=== PATIENT | male | born 1945 | race Caucasian/White ===

== ENCOUNTER → 2017-04-26 10:37 | Outpatient (CLI) | payer MEDICARE, SELFPAY ==
[2017-04-26 12:44] LABS: AST(SGOT) 17 U/L (15-37); Alanine Aminotransfer ALT/SGPT 27 U/L (16-61); Albumin, Serum 3.4 g/dL (3.2-5.0); Alkaline Phosphatase 91 U/L (45-117); Bilirubin, Direct 0.09 mg/dL (0.00-0.30); Cholesterol 148 mg/dL (200); Globulin 3.8 g/dL (2.2-4.2); High Density Lipoprotein 42 mg/dL; Protein, Total 7.2 g/dL (6.4-8.2); Triglycerides 121 mg/dL; Very Low Density Lipoprotein 24 mg/dL (5-40)
== END ==
PROVIDERS: Physician Assistant Medical; Visit Provider Internal Medicine Cardiovascular Disease
DX: E78.5 Hyperlipidemia, unspecified (principal); Z79.899 Other long term (current) drug therapy
CPT/HCPCS: 36415; 80061; 80076

== ENCOUNTER → 2018-05-08 11:19 | Outpatient (CLI) | payer MEDICARE, SELFPAY ==
[2017-04-27 10:58] VITALS: BMI 28.5
[2018-05-08 13:17] LABS: AST(SGOT) 14 U/L (15-37); Alanine Aminotransfer ALT/SGPT 22 U/L (16-61); Albumin, Serum 3.6 g/dL (3.2-5.0); Alkaline Phosphatase 109 U/L (45-117); Bilirubin, Direct 0.14 mg/dL (0.00-0.30); Cholesterol 139 mg/dL (200); Globulin 4.1 g/dL (2.2-4.2); High Density Lipoprotein 45 mg/dL; Protein, Total 7.7 g/dL (6.4-8.2); Triglycerides 88 mg/dL; Very Low Density Lipoprotein 18 mg/dL (5-40)
== END ==
PROVIDERS: Referring Provider Internal Medicine Cardiovascular Disease; Visit Provider Internal Medicine Cardiovascular Disease
DX: E78.5 Hyperlipidemia, unspecified (principal); I25.2 Old myocardial infarction; Z95.5 Presence of coronary angioplasty implant and graft; Z79.899 Other long term (current) drug therapy; I25.10 Atherosclerotic heart disease of native coronary artery without angina pectoris; I10 Essential (primary) hypertension
CPT/HCPCS: 36415; 80061; 80076

== ENCOUNTER 2018-10-23 20:30 | Observation (INO) | payer MEDICARE, SELFPAY ==
[2018-06-25 15:21] VITALS: BMI 28.3
[2018-10-23 20:30] VITALS: BP 165/82; PULSE 81; RESP 18; TEMP 36.4; O2SAT 95; BMI 27.8
--- NOTE | 2018-10-23 20:32 | EKG12_ITS ---
Test Reason : CP Blood Pressure : / mmHG Vent. Rate : 081 BPM Atrial Rate : 081 BPM P-R Int : 160 ms QRS Dur : 106 ms QT Int : 382 ms P-R-T Axes : 044 -21 069 degrees QTc Int : 443 ms Normal sinus rhythm Normal ECG Confirmed by MARIE GALLO ([id number]), purchasing expeditor ALIZE STILES ([id number]) on 10/24/2018 2:17:01 PM Referred By: Iesha Moreau Confirmed By:MARIE GALLO
[2018-10-23 20:54] LABS: Absolute Neutrophil Count 5.3 X10^3/uL (2.0-7.7); Basophil# 0.05 X10^3/uL; Basophil% 0.6 % (0-1); Eosinophil# 0.21 X10^3/uL; Eosinophils% 2.4 % (0-5); Hemoglobin 15.4 g/dL (13.0-16.5); Lymphocyte % 28.8 % (19-41); Mean Corp Hgb Conc 34.2 g/dL (32-36); Mean Corpuscular Hgb 30.6 pg (27.0-32.0); Mean Corpuscular Volume 89.3 fL (80-94); Mean Platelet Vol. 10.6 fl (6.2-12.0); Monocyte# 0.55 X10^3/uL; Monocyte% 6.3 % (0-10); NRBC Flagged by Analyzer 0 % (0-5); Neutrophil # 5.33 X10^3/uL (2.7-7.7); Neutrophil % 61.6 % (47-70); Platelet Count 238 K/mm3 (150-450); RBC Distribution Width CV 12.8 % (11.6-14.6); RBC Distribution Width SD 42.1 fl (35.1-43.9); Red Blood Count 5.04 M/mm3 (4.6-6.2); White Blood Count 8.7 K/mm3 (4.4-11.0)
--- NOTE | 2018-10-23 20:54 | RAD_ITS ---
STUDY: X-RAY CHEST REASON FOR EXAM: Male, 72 years old. Chest pain TECHNIQUE: Single AP portable view of the chest. COMPARISON: None. FINDINGS: vehicle monitor technician leads are present. The lungs are clear and expanded. There is no demonstrated pleural abnormality. Normal size heart. Normal mediastinum and stacey. Normal visualized pulmonary arteries. There are calcified plaques of the aortic arch. Normal visualized thoracic spine. Normal visualized ribs, clavicles, and shoulders. There is no demonstrated abnormality of the visualized soft tissue structures of the upper abdomen. RAD/Chest 1 View (Portable) IMPRESSION: Calcified plaques of the aortic arch. No acute cardiopulmonary disease process is seen. Electronically Signed: Julian Garrison MD at 22:11 EDT , Service support ,
[2018-10-23 21:01] VITALS: O2SAT 96
[2018-10-23 21:09] LABS: Anion Gap 7 (5-15); BUN 11 mg/dL (7-18); BUN/Creat Ratio 8.5 RATIO (10-20); Calcium,Total 8.9 mg/dL (8.5-10.1); Chloride 109 mmol/L (98-107); Creatinine, Serum 1.29 mg/dL (0.70-1.30); EST Glomerular Filtration Rate 58 mL/min (>60); Est Glom Filt Rate - Afr Amer 70 mL/min (>60); Estimated Creatinine Clearance 53.45 ml/min; Glucose 136 mg/dL (74-106); Potassium 3.3 mmol/L (3.5-5.1); Sodium Level 140 mmol/L (136-145)
--- NOTE | 2018-10-23 21:20 | ED.VISSUMM ---
- ER Visit Summary Date of Service: 10/23/18 Chief Complaint: Chest pain History of Present Illness: The patient is a 72 M presenting with chest pain. Patient states he was sitting in a car at [facility] and started to have chest discomfort and fatigue. He complained of chest tightness. He stood up and walked around and felt lightheaded. He did not have syncope. He denies shortness of breath. His symptoms lasted approximately one hour. He has a history of 2 previous stents in 2008. History of CAD, hypertension, hyperlipidemia. He is not a smoker. He states he saw Dr. Garcia in the spring and was advised to have a stress test. He states he has had difficulty with treadmill stress test in the past and did not want to walk on the treadmill again. Physical Examination: Vitals are stable. Patient is afebrile. Alert no acute distress. HEENT exam is unremarkable. Neck is supple. Lungs are clear and equal bilaterally. Heart is regular rate and rhythm. Abdomen is soft nontender nondistended. Extremities are unremarkable. Skin is warm and dry. No focal neurologic deficit. Remainder of exam is unremarkable. Emergency Department Course and Treatment: Patient was given aspirin on arrival. EKG is sinus rate of 81 with no acute ischemic changes. CBC, chemistries unremarkable other than potassium 3.3, glucose 136. Troponin is negative. Chest x-ray shows Calcified plaques of the aortic arch. No acute cardiopulmonary disease process is seen. On reevaluation patient is chest pain-free. Discussed with the hospitalist for observation. Disposition: Observation Impression: Chest pain This note was generated with [employer] dictation software. It may contain incorrect words, spelling, and punctuation that were not noted in review of the chart prior to signing ED Disposition - Plan for ED Patient: Referrals: Osmar Garcia MD [Primary Care Provider] -
[2018-10-23] MEDS: Aspirin 325 MG Tablet PO (21:49)
[2018-10-23 21:51] VITALS: BP 141/73; PULSE 75; RESP 15; O2SAT 94
--- NOTE | 2018-10-23 22:55 | PCM.HP.STD ---
History of Present Illness Date of Admission: 10/23/18 Chief Complaint: chest pain The patient is a 72 year old M with a past medical history as listed. He was admitted through the ED on 10/23/2018 with a complaint of chest pain which started a few hours earlier. Chest pain was left-sided pressure-like and radiated to his neck. He had a stent lightheadedness but denied any palpitations or dizziness or shortness of breath. Patient had similar chest pain became a bit 2019 and was recommended he have an exercise stress test. However since he did not want to work on the treadmill, he defaulted and did not follow-up. He has a history of CAD status post stent in 2008. Review of systems is otherwise negative. In the ED, EKG showed no acute ST changes and chest x-ray only showed calcified plaques of aortic arch. In the ED, vitals were essentially stable and chemistry was potassium of 3.3. Initial troponin was negative and CBC was unremarkable. Has been admitted to be managed for chest pain rule out ACS. [] Past Medical History Past Medical History (Chronic Problems): Chronic Problems (Last Reviewed 06/25/18 @ 15:27 by Osmar Garcia MD) Hyperlipidemia (Chronic) Atherosclerotic heart disease of [place] coronary artery without angina pectoris (Chronic) Hypertension (Chronic) Medical History: Medical History (Last Reviewed 06/25/18 @ 15:27 by Osmar Garcia MD) Old non-ST elevation myocardial infarction (NSTEMI) (Resolved) I25.2 Hyperlipidemia (Chronic) E78.5 Atherosclerotic heart disease of [place] coronary artery without angina pectoris (Chronic) I25.10 Hypertension (Chronic) I10 Renal calculus, bilateral N20.0 Allergies diphenhydramine [From Benadryl] Adverse Reaction (Verified 05/17/18 11:26) Unknown statins Adverse Reaction (Severe, Uncoded 05/17/18 11:26) Intolerance-Myalgia Home Medications: Ambulatory Orders Medication Instructions Recorded aspirin 81 mg tablet,delayed 81 mg PO QDAY 04/02/17 release famotidine 10 mg tablet 10 mg PO BID tab 04/02/17 nitroglycerin 0.4 mg sublingual 0.4 mg SUBLINGUAL Q5-15M PRN 04/02/17 tablet metoprolol tartrate 25 mg tablet 12.5 mg PO BID #90 tab 02/05/18 clopidogrel 75 mg tablet 75 mg PO QDAY #90 tab 04/08/18 atorvastatin 40 mg tablet 40 mg PO QDAY #90 tab 04/23/18 lisinopril 40 mg tablet 40 mg PO QDAY #90 tab 06/17/18 Surgical History: Surgical History (Last Reviewed 06/25/18 @ 15:27 by Osmar Garcia MD) History of coronary artery stent placement (Resolved) Onset Date: 10/27/08 Z95.5 PCI-BMS-Mid RCA w/ 3.0 x 28 mm Liberte and BMS-Prox RCA w/ 3.5 x 20 mm Liberte 10/27/2008 Lives: With Family Smoking Status: Former smoker Alcohol: None Drugs: None - *Family History Maternal Family History: Family History (Last Reviewed 06/25/18 @ 15:27 by Osmar Garcia MD) Mother CAD (coronary artery disease) Review of Systems Constitutional: Denies: Chills, Fever, Malaise, Weakness, Weight Change Eyes: Denies: Blurred vision HEENT: Denies: Head Aches, Sinus Congestion, Sinus Drainage Cardiovascular: Reports: Chest Pain, Chest Pressure, Light Headedness. Denies: Chest Tightness, Edema, Heaviness, Orthopnea, Palpitations, Paroxysmal Noc. Dyspnea, Syncope Respiratory: Denies: Cough, Shortness of Breath, Shortness of breath at rest, Shortness of breath upon exertion, Sputum production Gastrointestinal: Denies: Abdominal Pain, Nausea, Vomiting Genitourinary: Denies: Dysuria Musculoskeletal: Denies: Joint Pain, Joint Tenderness Skin: Denies: Rash, Wounds Neurological: Denies: Numbness, Tingling, Focal weakness Psychiatric: Denies: Anxiety, Depression, Homicidal Ideations, Suicidal Ideations Hematologic/ Lymphatic: Denies: Easy Bruising, Easy Bleeding VTE Information - Inpt Only VTE Present on Admission: No VTE Pharm Prophylaxis ordered?: Yes - Physical Exam General: Alert, Oriented x3, Cooperative, No apparent distress HEENT: Atraumatic, PERRLA, EOMI, Normocephalic Oral: Moist Mucosa Neck: Supple, No JVD, Negative Carotid Bruits Lungs: Clear to auscultation, Normal air movement, No rhonchi, No wheeze, No rales Cardiovascular: Regular rate, Regular Rhythm, Normal S1, Normal S2, No murmurs Abdomen: Bowel Sounds Present, Soft, Non Tender, Non-Distended, No Hepato-splenomegaly Extremities: No clubbing, No cyanosis, No edema, Capillary Refill Less than 3 Seconds Skin: No rashes, No breakdown Musculoskeletal: No Tenderness to Palpation of Joints or Extremities Lymphatic: No Cervical, Supraclavicular, or Inguinal Adenopathy Neurological: Cranial nerves II-XII grossly intact, Neuro grossly intact, Motor Exam 5/5 strength throughout Psych/Mental Status: Normal Affect, Appropriate, Alert and oriented to time, place, person, mood and affect Vital Signs Temp Pulse Resp BP Pulse Ox 97.5 F L 75 15 141/73 H 94 10/23/18 20:30 10/23/18 21:51 10/23/18 21:51 10/23/18 21:51 10/23/18 21:51 Oxygen Delivery Method Room Air Weight: 193 lb 9.054 oz Body Mass Index (BMI) 27.8 Laboratory Tests Past 24 Hrs 10/23/18 10/23/18 20:40 20:40 WBC 8.7 RBC 5.04 Hgb 15.4 Hct 45.0 MCV 89.3 MCH 30.6 MCHC 34.2 RDW Std Deviation 42.1 RDW Coeff of James 12.8 Plt Count 238 MPV 10.6 Immature Gran % (Auto) 0.300 Neut % (Auto) 61.6 Lymph % (Auto) 28.8 Schleicher % (Auto) 6.3 Eos % (Auto) 2.4 Baso % (Auto) 0.6 Absolute Neuts (auto) 5.3 Absolute Lymphs (auto) 2.50 Nucleated RBC % 0 Sodium 140 Potassium 3.3 L Chloride 109 H Carbon Dioxide 24.0 Anion Gap 7 BUN 11 Creatinine 1.29 Estim Creat Clear Calc 53.45 Est GFR (MDRD) Af Amer 70 Est GFR (MDRD) Non-Af 58 L BUN/Creatinine Ratio 8.5 L Glucose 136 H Calcium 8.9 Troponin I < 0.015 Diagnostic Data Chest X-Ray 10/23/18 20:54 IMPRESSION: Calcified plaques of the aortic arch. No acute cardiopulmonary disease process is seen. Electronically Signed: Julian Garrison MD at 22:11 EDT , Service support , Assessment/Plan All Active Problems (Last Reviewed 06/25/18 @ 15:27 by Osmar Garcia MD) Old non-ST elevation myocardial infarction (NSTEMI) (Resolved) History of coronary artery stent placement (Resolved 10/27/08) 72-year-old male admitted with complaint of chest pain. 1. Chest pain to r/o ACS admit to PCu with telemetry cycle troponins PO aspirin 81mg daily, SL nitroglycerin prn if troponins remain negative, for stress test tomorrow 2. CAD s/p stents: had stents in RCA in 2008. Known to have residual disease in LAD and circumflex arteries. On aspirin 81 mg daily, Plavix, metoprolol and statin. 3. Hypokalemia: Potassium 3.3. Will replace and monitor. Hypertension: On lisinopril 40 mg daily. DVT Prophylaxis: Lovenox Code Visit OBSV E&M: 23950 Initial observation care L3
[2018-10-23 23:24] VITALS: BP 153/77; PULSE 56; RESP 16; O2SAT 96
[2018-10-24] VITALS (8 sets, daily range): BP systolic 129–159; BP diastolic 69–80; PULSE 55–78; RESP 12–18; TEMP 36.4–36.7; O2SAT 95–100; BMI 27.3; BMI 27.4
--- NOTE | 2018-10-24 00:30 | EKG12_ITS ---
Test Reason : CP ADMIT Blood Pressure : / mmHG Vent. Rate : 056 BPM Atrial Rate : 056 BPM P-R Int : 170 ms QRS Dur : 110 ms QT Int : 434 ms P-R-T Axes : 034 -15 052 degrees QTc Int : 418 ms Sinus bradycardia Inferior infarct (cited on or before 18-OCT-2008) Abnormal ECG When compared with ECG of 18-OCT-2008 04:22, No significant change was found Confirmed by KANE LEE, BREEZY ([id number]), design editor ALIZE STILES ([id number]) on 10/29/2018 1:56:59 PM Referred By: Iesha Moreau Confirmed By:HOANG MIDDLETON MD
[2018-10-24 03:53] LABS: Absolute Neutrophil Count 3.8 X10^3/uL (2.0-7.7); Basophil# 0.05 X10^3/uL; Basophil% 0.7 % (0-1); Eosinophil# 0.25 X10^3/uL; Eosinophils% 3.5 % (0-5); Hematocrit 41.5 % (40-54); Lymphocyte % 34.8 % (19-41); Mean Corp Hgb Conc 33.7 g/dL (32-36); Mean Corpuscular Hgb 30.2 pg (27.0-32.0); Mean Corpuscular Volume 89.4 fL (80-94); Mean Platelet Vol. 10.6 fl (6.2-12.0); Monocyte% 8.4 % (0-10); NRBC Flagged by Analyzer 0 % (0-5); Neutrophil # 3.76 X10^3/uL (2.7-7.7); Neutrophil % 52.3 % (47-70); Platelet Count 217 K/mm3 (150-450); RBC Distribution Width CV 12.8 % (11.6-14.6); RBC Distribution Width SD 41.9 fl (35.1-43.9); Red Blood Count 4.64 M/mm3 (4.6-6.2); White Blood Count 7.2 K/mm3 (4.4-11.0)
[2018-10-24 04:08] LABS: Anion Gap 8 (5-15); BUN 11 mg/dL (7-18); BUN/Creat Ratio 9.9 RATIO (10-20); Calcium,Total 8.4 mg/dL (8.5-10.1); Chloride 111 mmol/L (98-107); Creatinine, Serum 1.11 mg/dL (0.70-1.30); EST Glomerular Filtration Rate 69 mL/min (>60); Est Glom Filt Rate - Afr Amer 84 mL/min (>60); Estimated Creatinine Clearance 62.11 ml/min; Glucose 91 mg/dL (74-106); Potassium 3.4 mmol/L (3.5-5.1); Sodium Level 144 mmol/L (136-145)
[2018-10-24] MEDS: Aspirin E.C. 81 MG Tablet PO ×2 (05:19)
--- NOTE | 2018-10-24 08:42 | PCM.PN.HOSP ---
Vitals/I&O's: Vital Signs Temp Pulse Resp BP Pulse Ox 97.5 F L 62 18 129/77 H 96 10/24/18 05:25 10/24/18 07:36 10/24/18 05:25 10/24/18 05:25 10/24/18 05:25 Oxygen Delivery Method Room Air Weight: 86.6 kg Body Mass Index (BMI) 27.3 Laboratory Results 10/23/18 20:40: WBC 8.7, RBC 5.04, Hgb 15.4, Hct 45.0, MCV 89.3, MCH 30.6, MCHC 34.2, RDW Std Deviation 42.1, RDW Coeff of James 12.8, Plt Count 238, MPV 10.6, Immature Gran % (Auto) 0.300, Neut % (Auto) 61.6, Lymph % (Auto) 28.8, Davis % (Auto) 6.3, Eos % (Auto) 2.4, Baso % (Auto) 0.6, Absolute Neuts (auto) 5.3, Absolute Lymphs (auto) 2.50, Nucleated RBC % 0 10/23/18 20:40: Sodium 140, Potassium 3.3 L, Chloride 109 H, Carbon Dioxide 24.0, Anion Gap 7, BUN 11, Creatinine 1.29, Estim Creat Clear Calc 53.45, Est GFR (MDRD) Af Amer 70, Est GFR (MDRD) Non-Af 58 L, BUN/Creatinine Ratio 8.5 L, Glucose 136 H, Calcium 8.9, Troponin I < 0.015 10/24/18 00:47: Troponin I < 0.015 10/24/18 03:38: Troponin I < 0.015 10/24/18 03:38: WBC 7.2, RBC 4.64, Hgb 14.0, Hct 41.5, MCV 89.4, MCH 30.2, MCHC 33.7, RDW Std Deviation 41.9, RDW Coeff of James 12.8, Plt Count 217, MPV 10.6, Immature Gran % (Auto) 0.300, Neut % (Auto) 52.3, Lymph % (Auto) 34.8, Davis % (Auto) 8.4, Eos % (Auto) 3.5, Baso % (Auto) 0.7, Absolute Neuts (auto) 3.8, Absolute Lymphs (auto) 2.50, Nucleated RBC % 0 10/24/18 03:38: Sodium 144, Potassium 3.4 L, Chloride 111 H, Carbon Dioxide 25.0, Anion Gap 8, BUN 11, Creatinine 1.11, Estim Creat Clear Calc 62.11, Est GFR (MDRD) Af Amer 84, Est GFR (MDRD) Non-Af 69, BUN/Creatinine Ratio 9.9 L, Glucose 91, Calcium 8.4 L Current Medications Aspirin (Ecotrin) 81 mg PO DAILY [facility] Last Admin: 10/24/18 05:19 Dose: 81 mg Documented by: Atorvastatin Calcium (Lipitor) 40 mg PO QHS [facility] Clopidogrel Bisulfate (Plavix) 75 mg PO DAILY [facility] Dextrose (D50w Syringe) 0 gm IV X1 PRN; Protocol PRN Reason: Hypoglycemia Enoxaparin Sodium (Lovenox) 40 mg SC DAILY@1000 FRANTZ Last Admin: 10/24/18 08:13 Dose: Not Given Documented by: Glucagon () 1 mg IM .X1 PRN PRN Reason: Hypoglycemia Lisinopril (Zestril) 40 mg PO DAILY [facility] Metoprolol Tartrate (Lopressor (Beta Zack)) 12.5 mg PO BID [facility] Nitroglycerin (Nitrostat) 0.4 mg SUBLINGUAL Q5M PRN Nutritional Formula (Lactose Free) (Ensure Enlive) 120 ml PO 4X/DAY [facility] Sodium Chloride () 10 - 40 ml IV UD PRN PRN Reason: SALINE FLUSH Medical Necessity - Tobacco Use Smoking Status: Former smoker Assessment/Plan All Active Problems (Last Reviewed 06/25/18 @ 15:27 by Osmar Garcia MD) Old non-ST elevation myocardial infarction (NSTEMI) (Resolved) History of coronary artery stent placement (Resolved 10/27/08)
--- NOTE | 2018-10-24 11:41 | STRESSREP ---
Stress Test Report Date: October 24, 2018 Procedure: Pharmacologic stress nuclear imaging study Indications: Chest pain Consent: Per the patient Procedure: The patient underwent pharmacologic (Regadenoson) evaluation with a peak heart rate of 83 beats per minute (56 %predicted maximal heart rate) and a peak blood pressure of 140/78 mmHg. The baseline ECG demonstrated normal sinus rhythm, prior anteroseptal LA. EKG during lexiscan infusion revealed no significant change from baseline. EKG post infusion revealed no significant change from baseline [There were no cardiac dysrhythmias pretest, during pharmacologic infusion, or recovery]. [There was no complaint of chest discomfort during pharmacologic infusion or recovery]. The examination was discontinued secondary to completion of protocol. Impression: 1. Lexiscan stress test test is negative for Lexiscan infusion induced EKG changes of ischemia. 2. Lexiscan stress test test is negative for Lexiscan infusion induced chest pain. 3. Results of the nuclear portion of the test is as below Myocardial perfusion imaging study: Technique: The patient was injected with 12 millicuries of technetium 99m Cardiolite and subsequently rest SPECT Cardiolite nuclear imaging was obtained in the horizontal long, vertical long, and short axis views. The patient underwent pharmacologic (Regadenoson) evaluation. Please see above for details. The patient was injected with 34.1 millicuries of technetium 99m Cardiolite and subsequently stress SPECT Cardiolite nuclear imaging was obtained in the horizontal long, vertical long, and short axis views. A gated Cardiolite study at peak stress was obtained. Interpretation: Rest and stress SPECT Cardiolite nuclear imaging status post realignment, normalization, and attenuation correction demonstrate mildly decreased radioisotope uptake in the inferior wall in both the rest and stress images prior to recognition correction. After recognition correction there appears to be normal overall myocardial radioisotope uptake. This is suggestive of diaphragmatic attenuation artifact. Gated images reveal hypokinesis of the midportion of the inferior wall which could be an artifact. The reported LVEF is greater than 70 %. Impression: 1. There is no evidence of significant ischemia or infarction. 2. Estimated ejection fraction is greater than 70%. This note was generated with [employer] software. It may contain incorrect words, spelling, and punctuation that were not noted in checking the note before signing.
--- NOTE | 2018-10-24 12:55 | DCINST_ITS ---
You will use the following diet at home:: Cardiac Discharge Activity: Return to Normal Activity Allergies/Adverse Reactions: Allergies diphenhydramine [From Benadryl] Adverse Reaction (Verified 05/17/18 11:26) Unknown statins Adverse Reaction (Severe, Uncoded 05/17/18 11:26) Intolerance-Myalgia Medications to take at Discharge aspirin 81 mg tablet,delayed release 81 mg PO DAILY 04/02/17 nitroglycerin 0.4 mg sublingual tablet 0.4 mg SUBLINGUAL Q5-15M PRN 04/02/17 metoprolol tartrate 25 mg tablet 12.5 mg PO BID #90 tab 02/05/18 atorvastatin 40 mg tablet 40 mg PO QDAY #90 tab 04/23/18 Clopidogrel Bisulfate [Clopidogrel] 75 mg PO DAILY 10/24/18 Lisinopril [Zestril] 40 mg PO DAILY 10/24/18 Primary Care Physician: Osmar Garcia MD [Primary Care Provider] - Please follow up with your Primary Care Physician in: in 2-3 weeks Test Results: Test results from this visit will be discussed in further detail at your follow- up appointment, if applicable. Proposed Discharge Date: 10/24/18
--- NOTE | 2018-10-24 12:57 | PCM.DC.SUM ---
Discharge Date and Diagnosis - Problem List Patient Problems: Active and Suspected Problems (Last Reviewed 06/25/18 @ 15:27 by Osmar Garcia MD) Chest pain (Acute) Date of Admission: 10/23/18 Date of Discharge: 10/24/18 - Primary Discharge Diagnosis Active and Suspected Problems (Last Reviewed 06/25/18 @ 15:27 by Osmar Garcia MD) Chest pain (Acute) - Secondary Discharge Diagnosis Chronic Problems (Last Reviewed 06/25/18 @ 15:27 by Osmar Garcia MD) Hyperlipidemia (Chronic) Atherosclerotic heart disease of [place] coronary artery without angina pectoris (Chronic) Hypertension (Chronic) Hospital Course and Treatment Imaging Results: Clinical Impression(s) from Imaging Studies Chest X-Ray 10/23/18 20:54 IMPRESSION: Calcified plaques of the aortic arch. No acute cardiopulmonary disease process is seen. Electronically Signed: Julian Garrison MD at 22:11 EDT , Service support , Summary of Care Provided: The patient is a 72 year old M with past medical history significant CAD with previous stent placement who presented with chest pain 1. Chest pain patient was placed on a monitored bed CT was ruled out with serial cardiac enzymes underwent a nuclear stress test which is negative for stress-induced ischemia discharge home instructed to follow-up with his primary sales account executive 2. CAD with previous stent placement in RCA in 2008 3. Hypokalemia present on admission repleted per protocol next 4. Hypertension-blood pressure controlled, home medications continued with dose adjustment as needed 5. DVT prophylaxis- on enoxaparin Patient Problems: Active and Suspected Problems (Last Reviewed 06/25/18 @ 15:27 by Osmar Garcia MD) Chest pain (Acute) - Physical Exam General: Alert HEENT: Atraumatic Neck: Supple Lungs: Clear to auscultation Cardiovascular: Regular rate Neurological: Neuro grossly intact Vital Signs Temp Pulse Resp BP Pulse Ox 98.1 F 78 16 134/71 H 97 10/24/18 11:20 10/24/18 11:20 10/24/18 11:20 10/24/18 11:20 10/24/18 11:20 Oxygen Delivery Method Room Air Weight: 86.6 kg Body Mass Index (BMI) 27.3 Intake and Output for Last 24 Hours 10/22/18 10/23/18 10/24/18 23:59 23:59 23:59 Intake Total 480 / 480 Balance 480 / 480 Laboratory Tests Past 24 Hrs 10/23/18 10/23/18 10/24/18 20:40 20:40 00:47 WBC 8.7 RBC 5.04 Hgb 15.4 Hct 45.0 MCV 89.3 MCH 30.6 MCHC 34.2 RDW Std Deviation 42.1 RDW Coeff of James 12.8 Plt Count 238 MPV 10.6 Immature Gran % (Auto) 0.300 Neut % (Auto) 61.6 Lymph % (Auto) 28.8 [place] % (Auto) 6.3 Eos % (Auto) 2.4 Baso % (Auto) 0.6 Absolute Neuts (auto) 5.3 Absolute Lymphs (auto) 2.50 Nucleated RBC % 0 Sodium 140 Potassium 3.3 L Chloride 109 H Carbon Dioxide 24.0 Anion Gap 7 BUN 11 Creatinine 1.29 Estim Creat Clear Calc 53.45 Est GFR (MDRD) Af Amer 70 Est GFR (MDRD) Non-Af 58 L BUN/Creatinine Ratio 8.5 L Glucose 136 H Calcium 8.9 Troponin I < 0.015 < 0.015 10/24/18 10/24/18 10/24/18 03:38 03:38 03:38 WBC 7.2 RBC 4.64 Hgb 14.0 Hct 41.5 MCV 89.4 MCH 30.2 MCHC 33.7 RDW Std Deviation 41.9 RDW Coeff of James 12.8 Plt Count 217 MPV 10.6 Immature Gran % (Auto) 0.300 Neut % (Auto) 52.3 Lymph % (Auto) 34.8 [place] % (Auto) 8.4 Eos % (Auto) 3.5 Baso % (Auto) 0.7 Absolute Neuts (auto) 3.8 Absolute Lymphs (auto) 2.50 Nucleated RBC % 0 Sodium 144 Potassium 3.4 L Chloride 111 H Carbon Dioxide 25.0 Anion Gap 8 BUN 11 Creatinine 1.11 Estim Creat Clear Calc 62.11 Est GFR (MDRD) Af Amer 84 Est GFR (MDRD) Non-Af 69 BUN/Creatinine Ratio 9.9 L Glucose 91 Calcium 8.4 L Troponin I < 0.015 Discharge Diet: Low fat/ Low Cholesterol Discharge Activity: Return to Normal Activity Home Medications: Medications to take at Discharge aspirin 81 mg tablet,delayed release 81 mg PO DAILY 04/02/17 nitroglycerin 0.4 mg sublingual tablet 0.4 mg SUBLINGUAL Q5-15M PRN 04/02/17 metoprolol tartrate 25 mg tablet 12.5 mg PO BID #90 tab 02/05/18 atorvastatin 40 mg tablet 40 mg PO QDAY #90 tab 04/23/18 Clopidogrel Bisulfate [Clopidogrel] 75 mg PO DAILY 10/24/18 Lisinopril [Zestril] 40 mg PO DAILY 10/24/18 Primary Care Physician: Osmar Garcia MD [Primary Care Provider] - Please follow up with your Primary Care Physician in: in 2-3 weeks Disposition: Home Minutes spent on discharge:: 35 Patient Condition:: Stable Medical Necessity - Tobacco Use Smoking Status: Former smoker Meaningful Use Info Meaningful Use Diagnoses (Choose all that apply): None applicable Code Visit OBSV E&M: 13404 Observation care discharge
[2018-10-24] MEDS: Metoprolol Tartrate 25 MG Tablet 12.5 MG PO (13:17)
[2018-10-24] MEDS: Clopidogrel Bisulfate 75 MG Tablet PO (13:17)
[2018-10-24] MEDS: Lisinopril 40 MG Tablet PO (13:17)
== END 2018-10-24 12:56 | disposition home or self-care (01) ==
LOC: ED 23:19 → PCU 23:28
PROVIDERS: Admitting Provider Student in an Organized Health Care Education/Training Program; Emergency Provider Emergency Medicine; Family Provider Internal Medicine Cardiovascular Disease; PCP Internal Medicine Cardiovascular Disease; Referring Provider Student in an Organized Health Care Education/Training Program; Visit Provider Internal Medicine
DX: R07.9 Chest pain, unspecified (principal); I25.10 Atherosclerotic heart disease of native coronary artery without angina pectoris; I10 Essential (primary) hypertension; E78.5 Hyperlipidemia, unspecified; E87.6 Hypokalemia; I25.2 Old myocardial infarction; Z79.82 Long term (current) use of aspirin; Z95.5 Presence of coronary angioplasty implant and graft; Z87.891 Personal history of nicotine dependence; Z79.899 Other long term (current) drug therapy
CPT/HCPCS: 36415; 71045; 78452; 80048; 84484; 85025; 93005; 93017; 97802; 99218; 99285; A9500; A4216; G0378; J2785

== ENCOUNTER → 2019-06-06 | Outpatient (CLI) | payer MEDICARE, SELFPAY ==
[2019-06-06 09:06] VITALS: BMI 27.8
--- NOTE | 2019-06-06 09:10 | RAD_ITS ---
STUDY: X-RAY CHEST REASON FOR EXAM: Male, 73 years old. SOB TECHNIQUE: PA and lateral views of the chest. COMPARISON: Comparison is made with prior examination October 23, 2018. FINDINGS: Stable minimal increased linear markings at the lung bases suggestive of mild scarring. There is no demonstrated pleural abnormality. Normal size heart. Normal mediastinum and stacey. Normal visualized pulmonary arteries. There is atherosclerotic calcification of the aortic arch with tortuosity. There are degenerative changes of the visualized thoracic spine. Normal visualized ribs, clavicles, and shoulders. There is no demonstrated abnormality of the visualized soft tissue structures of the upper abdomen. RAD/Chest PA and Lateral IMPRESSION: Stable examination. Mild linear scarring at the lung bases. Electronically Signed: Dixon Lopez, at 10:34 EDT , Service support ,
[2019-06-06 09:50] LABS: Absolute Lymphocyte Count 2.23 X10^3/uL (0.83-4.51); Absolute Neutrophil Count 5.5 X10^3/uL (2.0-7.7); Basophil# 0.06 X10^3/uL; Basophil% 0.7 % (0-1); Eosinophil# 0.14 X10^3/uL; Eosinophils% 1.7 % (0-5); Hematocrit 47.9 % (40-54); Hemoglobin 15.9 g/dL (13.0-16.5); Lymphocyte # 2.23 X10^3/ul (4.0); Lymphocyte % 26.6 % (19-41); Mean Corp Hgb Conc 33.2 g/dL (32-36); Mean Corpuscular Hgb 29.8 pg (27.0-32.0); Mean Corpuscular Volume 89.9 fL (80-94); Mean Platelet Vol. 10.9 fl (6.2-12.0); Monocyte# 0.39 X10^3/uL; Monocyte% 4.6 % (0-10); NRBC Flagged by Analyzer 0 % (0-5); Neutrophil # 5.54 X10^3/uL (2.7-7.7); Platelet Count 249 K/mm3 (150-450); RBC Distribution Width CV 13.2 % (11.6-14.6); RBC Distribution Width SD 43.2 fl (35.1-43.9); Red Blood Count 5.33 M/mm3 (4.6-6.2); White Blood Count 8.4 K/mm3 (4.4-11.0)
[2019-06-06 10:10] LABS: Vitamin B12 252 pg/mL (211-911)
[2019-06-06 10:17] LABS: AST(SGOT) 19 U/L (15-37); Alanine Aminotransfer ALT/SGPT 32 U/L (16-61); Albumin, Serum 3.8 g/dL (3.2-5.0); Alkaline Phosphatase 97 U/L (45-117); Anion Gap 9 (5-15); BUN 14 mg/dL (7-18); BUN/Creat Ratio 12.1 RATIO (10-20); Calcium,Total 8.6 mg/dL (8.5-10.1); Chloride 108 mmol/L (98-107); Creatinine, Serum 1.16 mg/dL (0.70-1.30); EST Glomerular Filtration Rate 66 mL/min (>60); Est Glom Filt Rate - Afr Amer 79 mL/min (>60); Globulin 3.7 g/dL (2.2-4.2); Glucose 126 mg/dL (74-106); Magnesium 2.4 mg/dL (1.6-2.6); Potassium 3.7 mmol/L (3.5-5.1); Protein, Total 7.5 g/dL (6.4-8.2); Sodium Level 143 mmol/L (136-145); Thyroid Stim Hormone (TSH) 9.44 uIU/mL (0.358-3.74)
[2019-06-09 11:00] LABS: Free T3 2.3 pg/mL (2.18-3.98); T4 Free Direct 0.56 ng/dL (0.76-1.46)
== END | disposition home or self-care (01) ==
LOC: MTLAB 09:08
PROVIDERS: PCP Family Medicine; Referring Provider Family Medicine; Visit Provider Family Medicine
DX: K21.9 Gastro-esophageal reflux disease without esophagitis (principal); R53.81 Other malaise; R06.02 Shortness of breath
CPT/HCPCS: 36415; 71046; 80053; 82607; 83735; 84439; 84443; 84481; 85025

== ENCOUNTER 2019-12-28 07:32 | Emergency (ER) | payer MEDICARE, SELFPAY ==
[2019-06-06 09:06] VITALS: BMI 27.8
[2019-12-28] VITALS (9 sets, daily range): BP systolic 91–129; BP diastolic 51–67; PULSE 60–101; RESP 16–20; TEMP 37.2–37.7; O2SAT 92–100; BMI 25.1
--- NOTE | 2019-12-28 07:49 | EKG12_ITS ---
Test Reason : Blood Pressure : / mmHG Vent. Rate : 068 BPM Atrial Rate : 068 BPM P-R Int : 160 ms QRS Dur : 104 ms QT Int : 400 ms P-R-T Axes : 044 -02 069 degrees QTc Int : 425 ms Normal sinus rhythm Low voltage QRS (Limb Leads) Poor R wave progression Inferior infarct , age undetermined Abnormal ECG Confirmed by ALEXIS LEE, ROCIO ([id number]), editorial clerk ALIZE STILES ([id number]) on 12/30/2019 8:21:14 AM Referred By: ALEXEI Confirmed By:ROCIO ESPINOZA MD
--- NOTE | 2019-12-28 07:51 | ED.VIS.GEN ---
History of Present Illness Chief Complaint: Fever Informant: Patient, Family Narrative: Patient presents the emergency department for evaluation of fever. Patient states that he woke this morning and his temperature was 104. He states that he took 3 Tylenol. He notes a cough but no shortness of breath. He notes generalized fatigue body aches. He states he had a headache at home but has not has resolved. Symptoms have been present for about 1 week. Yesterday he was tested for COVID at an urgent care but results are not available. He denies any diarrhea or vomiting, urinary symptoms, or sore throat. 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 - Past Medical History (1) Atherosclerotic heart disease of [place] coronary artery without angina pectoris Status: Chronic (2) Hyperlipidemia Status: Chronic (3) Hypertension Status: Chronic (4) History of coronary artery stent placement Status: Chronic Comment: PCI-BMS-Mid RCA w/ 3.0 x 28 mm Liberte and BMS-Prox RCA w/ 3.5 x 20 mm Liberte 10/27/2008 Past Medical History - Allergies and Home Meds Allergies/Adverse Reactions: Allergies diphenhydramine [From Benadryl] Adverse Reaction (Verified 12/28/19 07:36) Unknown statins Adverse Reaction (Severe, Uncoded 12/28/19 07:36) Intolerance-Myalgia Primary Care Physician: Natalie Alexandra MD [Primary Care Provider] - As Needed Prior records reviewed: Yes Surgical History: - - PTCA Lives: Spouse/ Significant Other Smoking Status: Former smoker Drugs: None Review of Systems General: Reports: Chills, Fever, Malaise. Denies: Sweats Eyes: Denies: Visual changes - bilaterally, Diplopia ENT: Denies: Rhinorrhea, Sore throat Cardiovascular: Denies: Chest pain, Palpitations Respiratory: Reports: Cough. Denies: Dyspnea, Dyspnea on exertion Gastrointestinal: Denies: Abdominal pain, Nausea, Vomiting, Diarrhea, Melena, Hematochezia Genitourinary: Denies: Dysuria, Hematuria, Frequency Musculoskeletal: Reports: Myalgias. Denies: Back pain, Extremity Pain Skin: Denies: Rash, Wounds Neurological: Reports: Headache. Denies: Weakness, Numbness Physical Exam Vital Signs/Narrative: Vital Signs Temp Pulse Resp BP Pulse Ox 12/28/19 07:33 99.1 F 101 H 18 116/67 95 Inital Vital Signs reviewed: Yes General: Well nourished, Well developed, No Acute Distress Head: Normocephalic, Atraumatic Eyes: Perrl, EOMI ENT: Moist mucous membranes, No rhinorrhea Neck: Supple, Nontender Cardiovascular: Regular rate, Regular rhythm, No murmurs Respiratory: No distress, CTA bilaterally, Chest nontender Abdomen: Soft, Nontender, Nondistended, Normal bowel sounds Back: Nontender, Normal Inspection Extremities: Nontender, No edema Skin: Normal color, No rash Neurological: Alert, Oriented x3, Cranial nerves II-XII grossly intact, Normal Strength, Normal Sensation Psychological: Normal affect, Normal Mood Diagnostic/Tx/Re-eval Clinical Impression(s) from Imaging Studies Chest X-Ray 12/28/19 08:21 IMPRESSION: Stable, nonacute portable x-ray examination of the chest. Electronically Signed: Osvaldo Russell MD ([place]) at 8:39 EDT , Service support , Laboratory Last Values WBC 9.7 K/mm3 (4.4-11.0) 12/28/19 08:00 RBC 4.86 M/mm3 (4.6-6.2) 12/28/19 08:00 Hgb 14.4 g/dL (13.0-16.5) 12/28/19 08:00 Hct 43.4 % (40-54) 12/28/19 08:00 MCV 89.3 fL (80-94) 12/28/19 08:00 MCH 29.6 pg (27.0-32.0) 12/28/19 08:00 MCHC 33.2 g/dL (32-36) 12/28/19 08:00 RDW Std Deviation 42.3 fl (35.1-43.9) 12/28/19 08:00 RDW Coeff of James 13.0 % (11.6-14.6) 12/28/19 08:00 Plt Count 190 K/mm3 (150-450) 12/28/19 08:00 MPV 10.8 fl (6.2-12.0) 12/28/19 08:00 Immature Gran % (Auto) 0.500 % (0.0-0.9) 12/28/19 08:00 Neut % (Auto) 90.8 % (47-70) H 12/28/19 08:00 Lymph % (Auto) 4.5 % (19-41) L 12/28/19 08:00 [place] % (Auto) 4.0 % (0-10) 12/28/19 08:00 Eos % (Auto) 0.0 % (0-5) 12/28/19 08:00 Baso % (Auto) 0.2 % (0-1) 12/28/19 08:00 Absolute Neuts (auto) 8.8 X10^3/uL (2.0-7.7) H 12/28/19 08:00 Absolute Lymphs (auto) 0.44 X10^3/uL (0.83-4.51) L 12/28/19 08:00 Nucleated RBC % 0 % (0-5) 12/28/19 08:00 PT 14.1 SECONDS (11.7-14.9) 12/28/19 08:00 INR 1.1 12/28/19 08:00 APTT 30.1 Seconds (24.1-36.2) 12/28/19 08:00 Sodium 137 mmol/L (136-145) 12/28/19 08:00 Potassium 3.1 mmol/L (3.5-5.1) L 12/28/19 08:00 Chloride 106 mmol/L (98-107) 12/28/19 08:00 Carbon Dioxide 23.0 mmol/L (21.0-32.0) 12/28/19 08:00 Anion Gap 8 (5-15) 12/28/19 08:00 BUN 13 mg/dL (7-18) 12/28/19 08:00 Creatinine 1.25 mg/dL (0.70-1.30) 12/28/19 08:00 Estim Creat Clear Calc 53.53 ml/min 12/28/19 08:00 Est GFR (MDRD) Af Amer 73 mL/min (>60) 12/28/19 08:00 Est GFR (MDRD) Non-Af 60 mL/min (>60) 12/28/19 08:00 BUN/Creatinine Ratio 10.4 RATIO (10-20) 12/28/19 08:00 Glucose 132 mg/dL (74-106) H 12/28/19 08:00 Lactic Acid 1.2 mmol/L (0.4-1.9) 12/28/19 08:00 Calcium 8.1 mg/dL (8.5-10.1) L 12/28/19 08:00 Total Bilirubin 0.90 mg/dL (0.20-1.00) 12/28/19 08:00 AST 19 U/L (15-37) 12/28/19 08:00 ALT 22 U/L (16-61) 12/28/19 08:00 Alkaline Phosphatase 82 U/L (45-117) 12/28/19 08:00 Troponin I < 0.015 ng/mL (<0.045) 12/28/19 08:00 Total Protein 7.3 g/dL (6.4-8.2) 12/28/19 08:00 Albumin 3.4 g/dL (3.2-5.0) 12/28/19 08:00 Globulin 3.9 g/dL (2.2-4.2) 12/28/19 08:00 Albumin/Globulin Ratio 0.9 RATIO (0.9-2.4) 12/28/19 08:00 Urine Color Yellow (Yellow) 12/28/19 09:55 Urine Clarity Sl. Cloudy (Clear) 12/28/19 09:55 Urine pH 6.0 (5.0 - 8.0) 12/28/19 09:55 Ur Specific [place] 1.020 (1.002-1.030) 12/28/19 09:55 Urine Protein 30 mg/dl (Negative) H 12/28/19 09:55 Urine Glucose (UA) Normal mg/dl (Normal) 12/28/19 09:55 Urine Ketones 15 mg/dl (Negative) H 12/28/19 09:55 Urine Occult Blood 10 /ul (Negative) H 12/28/19 09:55 Urine Nitrite Negative (Negative) 12/28/19 09:55 Urine Bilirubin 1 mg/dL (Negative) H 12/28/19 09:55 Urine Urobilinogen 8 mg/dl (Normal) H 12/28/19 09:55 Ur Leukocyte Esterase 25 /ul (Negative) H 12/28/19 09:55 Urine RBC 0 SEEN /hpf (0-5) 12/28/19 09:55 Urine WBC 0 SEEN /hpf (0-5) 12/28/19 09:55 Ur Squamous Epith Cells 0-5 SEEN /hpf (0-5) 12/28/19 09:55 Urine Bacteria RARE /hpf (None Seen) 12/28/19 09:55 Hyaline Casts 0-5 SEEN /lpf (0-5) 12/28/19 09:55 Urine Mucus 1+ /hpf (<or=2+) 12/28/19 09:55 - EKG Initial EKG Interpretation: Sinus Rhythm - EKG demonstrates a normal sinus rhythm at a rate of 68 without concerning features of ACS or ectopy. - Medical Decision Making Patient's blood work is very reassuring. His chest x-ray is clear. Urinalysis shows no obvious infection. His vital signs have been stable. He is not having any dyspnea. I believe this is most likely a viral infection and most likely COVID-19. He is already been swabbed and as he has not been admitted I do not think we need to do an emergent test. Would recommend continued isolation self-monitoring return if worsening or concerns ED Disposition - Plan for ED Patient: Disposition: Home or Assisted Living Diagnosis: Viral syndrome, Suspected COVID-19 virus infection Instructions: ED Viral Syndrome Referrals: Natalie Alexandra MD [Primary Care Provider] - As Needed Additional Instructions: Continue to off isolate. Drink plenty of fluids to stay hydrated Tylenol or Motrin for pain It is highly probable that you have COVID-19. Your testing from urgent care should be back soon. Return if worsening or concerns
--- NOTE | 2019-12-28 08:21 | RAD_ITS ---
STUDY: X-RAY CHEST REASON FOR EXAM: Male, 74 years old. 104 FEVER , COUGH TECHNIQUE: AP COMPARISON: None. FINDINGS: EKG leads project over the chest. Right hemidiaphragm is elevated. There is no demonstrated pleural abnormality. Normal size heart. Normal mediastinum and stacey. Normal visualized pulmonary arteries. There is atherosclerotic calcification of the aortic arch with tortuosity. Normal visualized thoracic spine. Normal visualized ribs, clavicles, and shoulders. There is no demonstrated abnormality of the visualized soft tissue structures of the upper abdomen. RAD/Chest 1 View (Portable) IMPRESSION: Stable, nonacute portable x-ray examination of the chest. Electronically Signed: Osvaldo Russell MD ([place]) at 8:39 EDT , Service support ,
[2019-12-28 08:25] LABS: International Normalized Ratio 1.1; Prothrombin Time (Protime)PT. 14.1 SECONDS (11.7-14.9)
[2019-12-28 08:26] LABS: Partial Thromboplast Time 30.1 Seconds (24.1-36.2)
[2019-12-28] MEDS: 0.9% Normal Saline 1,000 ML 999 ML IV (08:28)
[2019-12-28 08:31] LABS: ALB/GLOB Ratio 0.9 RATIO (0.9-2.4); AST(SGOT) 19 U/L (15-37); Alanine Aminotransfer ALT/SGPT 22 U/L (16-61); Albumin, Serum 3.4 g/dL (3.2-5.0); Alkaline Phosphatase 82 U/L (45-117); Anion Gap 8 (5-15); BUN 13 mg/dL (7-18); BUN/Creat Ratio 10.4 RATIO (10-20); Calcium,Total 8.1 mg/dL (8.5-10.1); Chloride 106 mmol/L (98-107); Creatinine, Serum 1.25 mg/dL (0.70-1.30); EST Glomerular Filtration Rate 60 mL/min (>60); Est Glom Filt Rate - Afr Amer 73 mL/min (>60); Estimated Creatinine Clearance 53.53 ml/min; Globulin 3.9 g/dL (2.2-4.2); Glucose 132 mg/dL (74-106); Potassium 3.1 mmol/L (3.5-5.1); Protein, Total 7.3 g/dL (6.4-8.2); Sodium Level 137 mmol/L (136-145)
[2019-12-28 08:35] LABS: Lactic Acid 1.2 mmol/L (0.4-1.9)
[2019-12-28 08:50] LABS: Absolute Lymphocyte Count 0.44 X10^3/uL (0.83-4.51); Absolute Neutrophil Count 8.8 X10^3/uL (2.0-7.7); Basophil# 0.02 X10^3/uL; Basophil% 0.2 % (0-1); Differential Indicated SCAN CRITERIA MET; Hematocrit 43.4 % (40-54); Hemoglobin 14.4 g/dL (13.0-16.5); Lymphocyte # 0.44 X10^3/ul (4.0); Lymphocyte % 4.5 % (19-41); Mean Corp Hgb Conc 33.2 g/dL (32-36); Mean Corpuscular Hgb 29.6 pg (27.0-32.0); Mean Corpuscular Volume 89.3 fL (80-94); Mean Platelet Vol. 10.8 fl (6.2-12.0); Monocyte# 0.39 X10^3/uL; NRBC Flagged by Analyzer 0 % (0-5); Neutrophil # 8.83 X10^3/uL (2.7-7.7); Neutrophil % 90.8 % (47-70); POSITIVE DIFFERENTIAL YES; Platelet Count 190 K/mm3 (150-450); RBC Distribution Width SD 42.3 fl (35.1-43.9); Red Blood Count 4.86 M/mm3 (4.6-6.2); White Blood Count 9.7 K/mm3 (4.4-11.0)
[2019-12-28 10:03] LABS: Red Blood Cells-Urine 0 SEEN /hpf (0-5); White Blood Cells 0 SEEN /hpf (0-5)
[2019-12-28 10:11] LABS: Color, Urine Yellow (Yellow); Glucose, Dipstick Normal (Normal); Ketone-Dipstick 15 mg/dl (Negative); Leukocyte Esterase-Dipstick 25 /ul (Negative); Nitrite-Dipstick Negative (Negative); Occult Blood-Urine 10 /ul (Negative); Protein-Dipstick 30 mg/dl (Negative); Urine Clarity Sl. Cloudy (Clear); Urine Urobilinogen 8 mg/dl (Normal)
[2019-12-28 10:13] LABS: Urine Bilirubin Dipstick 1 mg/dL (Negative)
[2019-12-28 10:17] LABS: Bacteria RARE /hpf (None Seen); Hyaline Cast 0-5 SEEN /lpf (0-5); Mucous, Urine 1+ /hpf (<or=2+); Squamous Epithelial Cells - UA 0-5 SEEN /hpf (0-5)
== END 2019-12-28 11:12 | disposition home or self-care (01) ==
PROVIDERS: Emergency Provider Emergency Medicine; PCP Family Medicine
DX: B34.9 Viral infection, unspecified (principal); Z20.828 Contact with and (suspected) exposure to other viral communicable diseases; I25.10 Atherosclerotic heart disease of native coronary artery without angina pectoris; E78.5 Hyperlipidemia, unspecified; I10 Essential (primary) hypertension; Z95.5 Presence of coronary angioplasty implant and graft; Z87.891 Personal history of nicotine dependence; Z79.899 Other long term (current) drug therapy
CPT/HCPCS: 71045; 80053; 81001; 83605; 84484; 85025; 85610; 85730; 87040; 87086; 93005; 96360; 99284; J7030; A4216

== ENCOUNTER → 2019-12-29 13:29 | Emergency (ER) | payer MEDICARE, SELFPAY ==
[2019-12-28 07:33] VITALS: BMI 25.1
[2019-12-29 13:35] VITALS: BP 123/62; PULSE 80; RESP 20; TEMP 36.8; O2SAT 92; BMI 25.8
--- NOTE | 2019-12-29 14:20 | ED.VIS.GEN ---
History of Present Illness Chief Complaint: Fever Informant: Patient Narrative: 74-year-old male with past medical history of hypertension and coronary artery disease presents with concern for flulike symptoms. States they have been present for approximately 1 week. Patient was here in the emergency department yesterday for fever. Patient's work-up at that time was negative. Patient was concerned because he had another fever this morning which is resolved with Tylenol. He denies any chest pain or increasing shortness of breath. Denies any nausea, vomiting, diarrhea. Patient is eating and drinking normally. Patient is not a current smoker. Patient did have coronavirus testing done at a local urgent care 2 days ago but the results are pending. Past Medical History - Allergies and Home Meds Allergies/Adverse Reactions: Allergies diphenhydramine [From Benadryl] Adverse Reaction (Verified 12/29/19 13:33) Unknown statins Adverse Reaction (Severe, Uncoded 12/29/19 13:33) Intolerance-Myalgia Primary Care Physician: Natalie Alexandra MD [Primary Care Provider] - Prior records reviewed: Yes Past Medical History: - - CAD and HTN Surgical History: - - PTCA Lives: Spouse/ Significant Other Smoking Status: Former smoker Alcohol: None Drugs: None Review of Systems General: Reports: Fever. Denies: Chills, Sweats Eyes: Denies: Visual changes - bilaterally, Diplopia ENT: Denies: Rhinorrhea, Sore throat Cardiovascular: Denies: Chest pain, Palpitations Respiratory: Reports: Cough. Denies: Dyspnea, Dyspnea on exertion Gastrointestinal: Denies: Abdominal pain, Nausea, Vomiting, Diarrhea, Melena, Hematochezia Genitourinary: Denies: Dysuria, Hematuria, Frequency Musculoskeletal: Denies: Back pain, Extremity Pain Skin: Denies: Rash, Wounds Neurological: Denies: Headache, Weakness, Numbness Physical Exam Vital Signs/Narrative: Vital Signs Temp Pulse Resp BP Pulse Ox 12/29/19 13:35 98.2 F 80 20 H 123/62 H 92 Inital Vital Signs reviewed: Yes General: Well nourished, Well developed, No Acute Distress Head: Normocephalic, Atraumatic Eyes: Perrl, EOMI ENT: Moist mucous membranes, No rhinorrhea Neck: Supple, Nontender Cardiovascular: Regular rate, Regular rhythm, No murmurs Respiratory: No distress, CTA bilaterally, Chest nontender Abdomen: Soft, Nontender, Nondistended, Normal bowel sounds Back: Nontender, Normal Inspection Extremities: Nontender, No edema Skin: Normal color, No rash Neurological: Alert, Oriented x3, Cranial nerves II-XII grossly intact, Normal Strength, Normal Sensation Psychological: Normal affect, Normal Mood Diagnostic/Tx/Re-eval - Medical Decision Making Patient appears well and nontoxic. Vital signs within normal limits. Afebrile. Lungs clear. Patient ambulated in the room and maintained pulse oximetry of 90%. Patient in no respiratory distress. Patient will be discharged home. Full work-up yesterday negative. Patient advised to follow-up with his primary care provider and return to the emergency department for any shortness of breath. Patient agreeable and discharged home in stable condition. Impression: 1. URI 2. Possible COVID-19 pneumonitis ED Disposition - Plan for ED Patient: Disposition: Home or Assisted Living Instructions: ED Upper Resp Infec No Abx Tx Referrals: Natalie Alexandra MD [Primary Care Provider] - 2 Days Additional Instructions: Please return for any shortness of breathe.
== END | disposition home or self-care (01) ==
PROVIDERS: Emergency Provider Emergency Medicine; PCP Family Medicine
DX: J06.9 Acute upper respiratory infection, unspecified (principal); I25.10 Atherosclerotic heart disease of native coronary artery without angina pectoris; I10 Essential (primary) hypertension; Z87.891 Personal history of nicotine dependence
CPT/HCPCS: 36415; 99284; A4216

== ENCOUNTER 2020-01-02 14:44 | Inpatient (IN) | payer MEDICARE, SELFPAY ==
[2019-12-29 13:35] VITALS: BMI 25.8
[2020-01-02] VITALS (23 sets, daily range): BP systolic 91–141; BP diastolic 61–81; PULSE 69–93; RESP 12–87; TEMP 36.6–37.2; O2SAT 24–100; BMI 25.8; BMI 26.0
--- NOTE | 2020-01-02 15:03 | EKG12_ITS ---
Test Reason : SOB Blood Pressure : / mmHG Vent. Rate : 088 BPM Atrial Rate : 088 BPM P-R Int : 150 ms QRS Dur : 098 ms QT Int : 382 ms P-R-T Axes : 030 -13 017 degrees QTc Int : 462 ms Normal sinus rhythm Low voltage QRS (Limb Leads) Poor R wave progression Nonspecific T wave abnormality Inferior infarct , age undetermined Abnormal ECG Confirmed by ALEXIS LEE, ROCIO ([id number]), editor magazine ALIZE STILES ([id number]) on 01/05/2020 11:36:58 AM Referred By: ALLEGRA Confirmed By:ROCIO ESPINOZA MD
--- NOTE | 2020-01-02 15:09 | ED.VISSUMM ---
- ER Visit Summary Date of Service: 01/02/20 Chief Complaint: Shortness of breath and cough History of Present Illness: The patient is a 74 M who presents with shortness of breath and cough that began today. Patient states he was recently released from quarantine yesterday after testing positive for Covid. Patient states that today he started having breathing problems whenever he exerted himself. Patient admits to fevers that have been intermittent over the past 10 days. Patient states they have been as high as 104. Patient admits to some sweats with this. Patient also admits to a cough with occasional yellow sputum. Patient denies any chest pain. Patient admits to nausea but denies any vomiting. Physical Examination: Vital signs are stable except for mild tachypnea of 25. Patient is afebrile. Patient has a oxygen saturation of 92% on nonrebreather mask. Oral mucosa is pink and moist. Neck is supple. Trachea is midline. There is no JVD. Heart was regular rate and rhythm. Lungs showed rales in the bases bilaterally. There is adequate respiratory effort noted. Abdomen is soft. Bowel sounds are normal. There is no tenderness. Radial nerves II through XII are intact. There are no focal motor or sensory deficits noted peer extremities are intact. There is no calf tenderness or edema. Test Results: EKG showed normal sinus rhythm with a rate of 88. There are no acute ST or T wave changes noted. This was unchanged compared to previous EKG dated 12/28/2019. CBC shows a leukocytosis of 15.0. Comprehensive metabolic profile showed a slightly elevated alk phos of 120. Calcium was slightly low at 3.0. Creatinine was 1.35. Lactate was slightly elevated at 2.1. PT with INR and PTT were normal. Portable chest x-ray was obtained. There is bilateral infiltrates. These were interpreted by the radiologist and reviewed by myself. Covid test was obtained and is pending. Emergency Department Course and Treatment: Patient was started on BiPAP. Patient was given IV fluids. Patient was started on Rocephin and Zithromax here in the emergency department. Blood cultures were obtained and are pending. Case was discussed with Dr. Ojeda, hospitalist. She will admit the patient to ICU. Patient and family understood and were agreeable with the plan. All questions were answered. Disposition: Admit to ICU Impression: 1. Pneumonia 2. Severe sepsis Critical care time: 30 minutes. This was time spent obtaining history, performing physical examination, documenting, interpreting test results, discussion with consultants, and determining disposition. This note was generated with [employer] dictation software. It may contain incorrect words, spelling, and punctuation that were not noted in review of the chart prior to signing ED Disposition - Plan for ED Patient: Disposition: Acute Care Hospital [facility] Diagnosis: Pneumonia, Severe sepsis, Acute respiratory failure with hypoxia, COVID-19
--- NOTE | 2020-01-02 15:25 | PCM.HP.STD ---
Problem List (1) Acute respiratory failure with hypoxia Status: Acute (2) COVID-19 Status: Acute (3) History of coronary artery stent placement Status: Chronic Comment: PCI-BMS-Mid RCA w/ 3.0 x 28 mm Liberte and BMS-Prox RCA w/ 3.5 x 20 mm Liberte 10/27/2008 (4) Hyperlipidemia Status: Chronic Qualifiers: Hyperlipidemia type: pure hypercholesterolemia Qualified Code(s): E78.00 - Pure hypercholesterolemia, unspecified; E78.0 - Pure hypercholesterolemia (5) Atherosclerotic heart disease of [place] coronary artery without angina pectoris Status: Chronic Qualifiers: [place] vs. transplanted heart: [place] heart Qualified Code(s): I25.10 - Atherosclerotic heart disease of [place] coronary artery without angina pectoris (6) Hypertension Status: Chronic Qualifiers: Hypertension type: essential hypertension Qualified Code(s): I10 - Essential (primary) hypertension History of Present Illness Date of Admission: 01/02/20 Chief Complaint: Hx COVID positive, off quarantine day prior, worsening dyspnea. The patient is a 74 y/o M w/ PMHx: HTN, HLD, CAD s/p BMS mid RCA and proximal RCA, GERD who presents to the [facility] ED on 01/02/20 with history of COVID + status 11 days prior, just off quarantine the day prior to current presentation with history of illness spectrum inclusive of fevers, chills, mild frontal throbbing headaches, congestion, sore throat, body aches, loose stools but no associated abdominal cramping, nausea without emesis with cough and dyspnea more pronounced over the last several days, worsening with outside evaluation noting oxygenation approximately 50% initially with improvement mid 80s % on a nonrebreather prompting EMS transition to the hospital for evaluation. Patient notes that his has not had any symptoms and lives with him. Patient notes that he felt as if he had been improving but worsened over the last 2 days. Patient notes he had fevers up to 104 at home. Work-up in the ED included T 98.5, heart rate 93, BP 113/61, respiratory rate 25, initially 92% on a nonrebreather with decreased to 87 with placement of BiPAP with improvement to 97%, CBC p with WC 15, hemoglobin 13.2, left shift, unremarkable coags, CMP with potassium 3.0, chloride 109, BUN/creatinine 25/1.35, glucose 138, lactic acid 2.1, AST/ALT 69/48, alk phos 120, repeat COVID testing as well as respiratory viral panel upon evaluation of patient, CXR with ? RUL and LLL infiltrates. Blood culture x2 requested per ED physician. Chest X-ray pending per ED. Past Medical History Past Medical History (Chronic Problems): Chronic Problems (Last Reviewed 06/25/18 @ 15:[address] Osmar Garcia MD) History of coronary artery stent placement (Chronic 10/27/08) PCI-BMS-Mid RCA w/ 3.0 x 28 mm Liberte and BMS-Prox RCA w/ 3.5 x 20 mm Liberte 10/27/2008 Hyperlipidemia (Chronic) Atherosclerotic heart disease of [place] coronary artery without angina pectoris (Chronic) Hypertension (Chronic) Medical History: Medical History (Last Reviewed 06/25/18 @ 15:[address] Osmar Garcia MD) Old non-ST elevation myocardial infarction (NSTEMI) (Resolved) I25.2 Hyperlipidemia (Chronic) E78.5 Atherosclerotic heart disease of [place] coronary artery without angina pectoris (Chronic) I25.10 Hypertension (Chronic) I10 Renal calculus, bilateral N20.0 Allergies diphenhydramine [From Benadryl] Adverse Reaction (Verified 01/02/20 14:57) Unknown statins Adverse Reaction (Severe, Uncoded 01/02/20 14:57) Intolerance-Myalgia Home Medications: Ambulatory Orders Medication Instructions Recorded aspirin 81 mg tablet,delayed 81 mg PO DAILY 04/02/17 release nitroglycerin 0.4 mg sublingual 0.4 mg SUBLINGUAL Q5-15M PRN 04/02/17 tablet atorvastatin 40 mg tablet 40 mg PO QDAY #90 tab 02/03/19 metoprolol tartrate 25 mg tablet 12.5 mg PO BID #90 tab 02/10/19 clopidogrel 75 mg tablet 75 mg PO DAILY #90 tab 04/17/19 lisinopril 40 mg tablet 40 mg PO DAILY #90 tab 07/10/19 Famotidine 20 mg PO DAILY 12/29/19 Surgical History: Surgical History (Last Reviewed 06/25/18 @ 15:[address] Osmar Garcia MD) History of coronary artery stent placement (Chronic) Onset Date: 10/27/08 Z95.5 PCI-BMS-Mid RCA w/ 3.0 x 28 mm Liberte and BMS-Prox RCA w/ 3.5 x 20 mm Liberte 10/27/2008 Surgical History: - - PCI x2, tonsillectomy. Psychiatric History: No pertinent psych hx Lives: Spouse/ Significant Other Smoking Status: Former smoker - Patient quit cigarette tobacco usage remotely. Tobacco Use: Non-smoker Alcohol: None Drugs: None - *Family History Maternal Family History: Family History (Last Reviewed 06/25/18 @ 15:[address] Osmar Garcia MD) Mother CAD (coronary artery disease) History Items: High Cholesterol, Heart Disease, Hypertension Paternal Family History: Family History (Last Reviewed 06/25/18 @ 15:[address] Osmar Garcia MD) Mother CAD (coronary artery disease) History Items: Cancer - Father with a history of leukemia. Review of Systems Constitutional: Reports: Anorexia, Chills, Fever, Malaise, Weakness, Fatigue. Denies: Weight Change HEENT: Reports: Head Aches, Nasal Congestion, Sinus Congestion, Sore Throat. Denies: Sinus Drainage Cardiovascular: Denies: Chest Pain, Chest Pressure, Chest Tightness, Orthopnea, Palpitations, Paroxysmal Noc. Dyspnea, Syncope Respiratory: Reports: Cough, Shortness of Breath, Shortness of breath at rest, Shortness of breath upon exertion, Sputum production Gastrointestinal: Reports: Diarrhea, Nausea. Denies: Abdominal Pain, Vomiting Genitourinary: Reports: Frequency. Denies: Dysuria Musculoskeletal: Reports: Joint Pain, Muscle pain. Denies: Joint Tenderness Skin: Denies: Rash, Wounds Neurological: Denies: Numbness, Tingling, Focal weakness Psychiatric: Denies: Anxiety, Depression, Homicidal Ideations, Suicidal Ideations Hematologic/ Lymphatic: Reports: Easy Bruising, Easy Bleeding VTE Information - Inpt Only VTE Present on Admission: No VTE Mechan Device Prophylaxis: SCD's VTE Pharm Prophylaxis ordered?: Yes Patient Problems: Active and Suspected Problems (Last Reviewed 06/25/18 @ 15:[address] Osmar Garcia MD) COVID-19 (Acute) Acute respiratory failure with hypoxia (Acute) Subjective: Patient seated upright in the ED bed, fatigued and ill-appearing, hypoxic in the low 80s on a nonrebreather, BiPAP being placed. Objective: Physical Examination: General: awake, alert, oriented x 3 and remains cooperative despite hypoxia, appears fatigued and ill, oxygenation on a nonrebreather in the low 80s. Skin: normal color, turgor, no icterus, cyanosis. HEENT: AT/NC, EOMI, PERRLA, dry MM, no carotid bruits or JVD noted. Lungs: Diffusely diminished, greater bases, mildly increased respiratory rate and accessory muscle usage, BiPAP now being placed, difficult to discern any rales, no wheezing. Heart: Tachycardic with regular rhythm; no gallop, rub audible. Abdomen: soft, NTTP, ND, moderately hyperactive BS, no HSM. Extremities: no cyanosis, clubbing, or edema. Neurological: patient awake, alert, oriented as noted; cognitive function appears intact despite hypoxia; pupils equally reactive to light and accomodation; cranial nerves II-XII grossly normal, moving all 4 extremities, no focal deficits, strength severely global decrease secondary to acute presentation. Psychiatric: affect appears fatigued, ill-appearing, no acute evidence of depressive or anxiety feelings. - Physical Exam Vitals/I&O's: Vital Signs Temp Pulse Resp BP Pulse Ox 98.5 F 90 87 H 91/69 24 01/02/20 14:45 01/02/20 15:07 01/02/20 15:07 01/02/20 15:07 01/02/20 15:07 Oxygen Flow Rate (L/min) 100 Oxygen Delivery Method Non-Rebreather Weight: 180 lb Body Mass Index (BMI) 25.8 Laboratory Results 01/02/20 14:50: WBC Pending, RBC Pending, Hgb Pending, Hct Pending, MCV Pending, MCH Pending, MCHC Pending, RDW Std Deviation Pending, RDW Coeff of James Pending, Plt Count Pending, Neut % (Auto) Pending, Absolute Neuts (auto) Pending 01/02/20 14:50: PT Pending, INR Pending, APTT Pending 01/02/20 14:50: Sodium Pending, Potassium Pending, Chloride Pending, Carbon Dioxide Pending, Anion Gap Pending, BUN Pending, Creatinine Pending, Est GFR (MDRD) Af Amer Pending, Est GFR (MDRD) Non-Af Pending, BUN/Creatinine Ratio Pending, Glucose Pending, Calcium Pending, Total Bilirubin Pending, AST Pending, ALT Pending, Alkaline Phosphatase Pending, Total Protein Pending, Albumin Pending 01/02/20 14:50: Lactic Acid Pending Current Medications Sodium Chloride () 500 mls @ 999 mls/hr IV .Q31M ONE Stop: 01/02/20 15:32 Assessment/Plan All Active Problems (Last Reviewed 06/25/18 @ 15:[address] Osmar Garcia MD) COVID-19 (Acute) Acute respiratory failure with hypoxia (Acute) Chest pain (Acute) Old non-ST elevation myocardial infarction (NSTEMI) (Resolved) The patient is a 74 y/o M w/ PMHx: HTN, HLD, CAD s/p BMS mid RCA and proximal RCA, GERD who presents to the [facility] ED on 01/02/20 with history of COVID + status 11 days prior, just off quarantine with cough and dyspnea more pronounced over the last several days, worsening with outside evaluation noting oxygenation approximately 50% initially with improvement mid 80s % on a nonrebreather prompting EMS transition to the hospital for evaluation. 1. Acute Severe Sepsis secondary to Acute Hypoxic Respiratory Failure secondary to Acute Viral Syndrome, COVID-19: With recent positive Covid status, clinically worsening, maintain on BiPAP in the ED. Pending work-up in the ED upon evaluation. We will plan admission to the ICU, COVID precautions, consult tool carrier and infectious disease, obtain ABG, continue BiPAP, PRN albuterol, HOB, IS parameters w/ pending sputum cultures, respiratory viral panel and urine antigens, will obtain procalcitonin, d-dimer, CRP, CPK, Ferritin, LDH, will cycle cardiac enzymes, repeat EKG in AM, if increase would obtain ECHO, continue supportive care including q 2 hour turning, plan initiation of decadron IV 6 mg daily. Bld cx x 2 obtained in the ED. 2. Hypokalemia: Admission K+ 3.0, magnesium level requested, supplementation given, repeat level in AM. 3. Hyperglycemia: Likely stress response, will obtain hemoglobin A1c to be cautious, [place] CMP in a.m. 4. Chronic Kidney Disease Stage III with Renal Insufficiency secondary to #1: Admission BUN/Cr 25/1.35, baseline renal function 1.1-1.2, mildly increased with mild increased BUN, repeat CMP in AM. 5. CAD: Status post PCI-BMS-Mid RCA w/ 3.0 x 28 mm Liberte and BMS-Prox RCA w/ 3.5 x 20 mm Liberte 10/27/2008, continue aspirin, Plavix, metoprolol, lisinopril with hold parameters, statin therapy. 6. Hypertension: Continue home regimen including lisinopril, metoprolol with hold parameters as needed. 7. Hyperlipidemia: Continue home statin regimen. 8. GERD: Maintain on patient famotidine. 9. DVT prophylaxis: SCDs, Lovenox. 10. CODE status: Patient does not have healthcare power of criminal defense attorney nor living will set up. Patient lives with his spouse. Discussed CODE status at length including difference between FULL code, DNR-CCA and DNR-CC status. Following discussions about the differences in these status, requested Full Code status. Encouraged discussion with case management/social work to assist in setting these items up during admission. Advanced Care Planning Face to Face Time: 16 minutes. Inpatient E&M: 13243 Init Hosp L3 Procedures: 41627 Advncd Care Plan 30 Min
[2020-01-02 15:31] LABS: Absolute Neutrophil Count 12.5 X10^3/uL (2.0-7.7); Basophil# 0.04 X10^3/uL; Basophil% 0.3 % (0-1); Eosinophil# 0.04 X10^3/uL; Eosinophils% 0.3 % (0-5); Hematocrit 38.9 % (40-54); Hemoglobin 13.2 g/dL (13.0-16.5); Mean Corp Hgb Conc 33.9 g/dL (32-36); Mean Corpuscular Hgb 29.1 pg (27.0-32.0); Mean Corpuscular Volume 85.7 fL (80-94); Mean Platelet Vol. 10.9 fl (6.2-12.0); Monocyte# 0.89 X10^3/uL; Monocyte% 5.9 % (0-10); NRBC Flagged by Analyzer 0 % (0-5); Neutrophil # 12.54 X10^3/uL (2.7-7.7); Neutrophil % 83.6 % (47-70); POSITIVE MORPHOLOGY YES; Platelet Count 402 K/mm3 (150-450); RBC Distribution Width CV 13.3 % (11.6-14.6); RBC Distribution Width SD 41.9 fl (35.1-43.9); Red Blood Count 4.54 M/mm3 (4.6-6.2)
--- NOTE | 2020-01-02 15:40 | RAD_ITS ---
STUDY: X-RAY CHEST REASON FOR EXAM: Male, 74 years old. POSITIVE COVID. LIGHTHEADED, SOB. TECHNIQUE: Single AP portable view of the chest. COMPARISON: 12/28/2019. FINDINGS: Stable elevated right hemidiaphragm. Increasing hazy density throughout the right lung, and lower left lung and both perihilar regions. The appearance is nonspecific but could represent multifocal nonspecific pneumonia. Blunting of the left costophrenic angle suggests possibility of small effusion. Normal size heart. Normal mediastinum and stacey. Normal visualized pulmonary arteries. Normal visualized aortic arch and descending thoracic aorta. There are diffuse degenerative changes of the visualized thoracic spine. Normal visualized ribs, clavicles, and shoulders. There is no demonstrated abnormality of the visualized soft tissue structures of the upper abdomen. RAD/Chest 1 View (Portable) IMPRESSION: Increasing hazy bilateral pulmonary opacities. Appearance is nonspecific but could represent multifocal pneumonia. Electronically Signed: Michael Riggs MD at 16:51 EDT , Service support ,
[2020-01-02 15:42] LABS: ALB/GLOB Ratio 0.5 RATIO (0.9-2.4); AST(SGOT) 69 U/L (15-37); Alanine Aminotransfer ALT/SGPT 48 U/L (16-61); Albumin, Serum 2.3 g/dL (3.2-5.0); Alkaline Phosphatase 120 U/L (45-117); Anion Gap 8 (5-15); BUN 25 mg/dL (7-18); BUN/Creat Ratio 18.5 RATIO (10-20); Calcium,Total 8.4 mg/dL (8.5-10.1); Chloride 109 mmol/L (98-107); Creatinine, Serum 1.35 mg/dL (0.70-1.30); EST Glomerular Filtration Rate 55 mL/min (>60); Est Glom Filt Rate - Afr Amer 66 mL/min (>60); Estimated Creatinine Clearance 49.57 ml/min; Globulin 4.9 g/dL (2.2-4.2); Glucose 138 mg/dL (74-106); Protein, Total 7.2 g/dL (6.4-8.2); Sodium Level 142 mmol/L (136-145)
[2020-01-02 15:44] LABS: International Normalized Ratio 1.1
[2020-01-02 15:45] LABS: Partial Thromboplast Time 35.5 Seconds (24.1-36.2)
[2020-01-02 15:52] LABS: Lactic Acid 2.1 mmol/L (0.4-1.9)
[2020-01-02 15:59] LABS: Differential Indicated SCAN CRITERIA MET
[2020-01-02 16:22] LABS: Anisocytosis RARE; Platelet Estimate SLT INC (ADEQ); Red Cell Morphology N CHROM NORMAL (NORM C&C); Toxic Granulation 1+
[2020-01-02 19:19] LABS: Reflex Lactate? Y
[2020-01-02] MEDS: 0.9% Normal Saline 1,000 ML 100 ML IV (19:50)
[2020-01-02 20:18] LABS: D-Dimer Quantitative (DVT/PE) 3.89 FEU/ug/m (0.27-0.49)
[2020-01-02 20:43] LABS: Hemoglobin A1c 5.7 % (3.8-5.6)
[2020-01-02 20:53] LABS: Ferritin 1750 ng/mL (26-388); LDH 705 U/L (87-241); Lactic Acid 1.9 mmol/L (0.4-1.9); Magnesium 2.8 mg/dL (1.6-2.6)
[2020-01-02] MEDS: Metoprolol Tartrate 25 MG Tablet 12.5 MG PO (21:50)
[2020-01-02] MEDS: Atorvastatin Calcium 40 MG Tablet PO (21:50)
[2020-01-02] MEDS: Enoxaparin 80 MG/0.8 ML Syringe SC (21:53)
[2020-01-02] MEDS: dexAMETHasone 4 MG/ML Vial 6 MG IV (21:53)
[2020-01-02] MEDS: Contrast Allergy Safety Check IV (22:37)
[2020-01-02 23:50] LABS: Procalcitonin 0.26 ng/mL (0.00-0.09)
[2020-01-03] VITALS (33 sets, daily range): BP systolic 102–149; BP diastolic 49–86; PULSE 55–83; RESP 12–28; TEMP 36.6–37.1; O2SAT 89–97; BMI 26.2
--- NOTE | 2020-01-03 00:20 | CT_ITS ---
STUDY: CTA CHEST REASON FOR EXAM: Male, 74 years old patient with shortness of breath, cough and elevated D-Dimer. Patient has fever, headache and loss of taste and smell RADIATION DOSAGE (If Supplied By Facility): CTDIvol = ( 16.16 ) mGy, DLP = ( 571.05 ) mGycm TECHNIQUE: The examination was performed with the intravenous administration of 100 mL of Isovue-370. Post-processing of the angiographic images was performed, with multiplanar reformation and 3D reconstruction. Individualized dose optimization techniques were used for this CT. COMPARISON: Prior comparison studies are not available for review at this time. FINDINGS: Cardiac monitoring leads are present. Normal enhancement of the main pulmonary artery and right and left pulmonary arteries. There is limited enhancement of the bilateral peripheral pulmonary arteries. There is no demonstrated pulmonary embolism. There is atherosclerotic calcification of the aortic arch with tortuosity. There is no demonstrated aortic dissection. There is cardiomegaly. There are calcifications of the coronary arteries. There are enlarged mediastinal lymph nodes. Appears to be right-sided hilar lymphadenopathy with enlarged lymph nodes measuring 2.4 x 1.8 x 1.2 cm in size. There does not appear to be a left-sided hilar lymphadenopathy. Normal visualized trachea and bronchi. There is moderate elevation of the right hemidiaphragm. Left lung is expanded. There is diffuse groundglass attenuation throughout the right upper lobe and right middle lobe. There is right lower lobe airspace consolidation with air bronchograms. There is left lower lobe airspace consolidation with air bronchograms. Groundglass attenuation is present throughout the left upper lobe and lingula. Normal pleura. Normal chest wall structures. Normal osseous structures. Normal visualized upper abdomen. CT/CTA Chest W/WO Contrast IMPRESSION: 1. No CTA demonstrated pulmonary embolism or arterial dissection. 2. Extensive bilateral airspace disease throughout both lungs consistent with multifocal pneumonia. 3. Right-sided hilar lymphadenopathy and mediastinal lymphadenopathy.. Electronically Signed: Ladan Posada MD at 1:52 EDT , Service support ,
[2020-01-03 03:15] LABS: ALB/GLOB Ratio 0.5 RATIO (0.9-2.4); AST(SGOT) 60 U/L (15-37); Alanine Aminotransfer ALT/SGPT 42 U/L (16-61); Alkaline Phosphatase 102 U/L (45-117); Anion Gap 5 (5-15); BUN 20 mg/dL (7-18); BUN/Creat Ratio 24.6 RATIO (10-20); Calcium,Total 7.5 mg/dL (8.5-10.1); Chloride 113 mmol/L (98-107); Creatinine, Serum 0.81 mg/dL (0.70-1.30); EST Glomerular Filtration Rate 99 mL/min (>60); Est Glom Filt Rate - Afr Amer 119 mL/min (>60); Estimated Creatinine Clearance 82.61 ml/min; Globulin 4.3 g/dL (2.2-4.2); Glucose 128 mg/dL (74-106); Potassium 3.5 mmol/L (3.5-5.1); Protein, Total 6.3 g/dL (6.4-8.2); Sodium Level 142 mmol/L (136-145)
[2020-01-03 03:16] LABS: Absolute Lymphocyte Count 0.76 X10^3/uL (0.83-4.51); Absolute Neutrophil Count 12.5 X10^3/uL (2.0-7.7); Basophil# 0.05 X10^3/uL; Basophil% 0.3 % (0-1); Eosinophils% 0.7 % (0-5); Hematocrit 37.5 % (40-54); Hemoglobin 12.6 g/dL (13.0-16.5); Lymphocyte # 0.76 X10^3/ul (4.0); Lymphocyte % 5.3 % (19-41); Mean Corp Hgb Conc 33.6 g/dL (32-36); Mean Corpuscular Hgb 29.4 pg (27.0-32.0); Mean Corpuscular Volume 87.4 fL (80-94); Mean Platelet Vol. 10.9 fl (6.2-12.0); Monocyte# 0.56 X10^3/uL; Monocyte% 3.9 % (0-10); NRBC Flagged by Analyzer 0 % (0-5); Neutrophil # 12.49 X10^3/uL (2.7-7.7); Neutrophil % 87.4 % (47-70); Platelet Count 385 K/mm3 (150-450); RBC Distribution Width CV 13.5 % (11.6-14.6); RBC Distribution Width SD 43.2 fl (35.1-43.9); Red Blood Count 4.29 M/mm3 (4.6-6.2); White Blood Count 14.3 K/mm3 (4.4-11.0)
--- NOTE | 2020-01-03 05:53 | CON.PCM_ITS ---
Reason for Consult Date of Consultation: 01/03/20 Reason for Consultation: Acute hypoxemic respiratory failure History of Present Illness: The patient is a 74-year-old male, with a history as outlined below, who presented to the emergency department on January 01 with complaints of shortness of breath and cough. The patient reported that his symptoms have been present now for approximately 2 weeks. He initially tested positive for coronavirus 12 days ago and just came off of self quarantine. On presentation to the emergency department, the patient was noted to be afebrile and hemodynamically stable. He was hypoxemic, nevertheless, requiring a nonrebreather to maintain appropriate oxygen saturations. Laboratory evaluation revealed an elevated white blood cell count to 15,000. Coagulation profile was within normal limits. D-dimer was elevated to 3.89. Chemistry profile was notable for a potassium of 3.0 and creatinine of 1.35. Lactate was mildly elevated to 2.1. Initial troponin was mildly elevated to 0.409. Coronavirus PCR was positive. CTA chest was obtained which demonstrated no evidence for pulmonary embolism. There was enlarged mediastinal and right hilar lymph nodes. Extensive bilateral airspace disease was also noted. The patient was placed on antimicrobials and Decadron. He was eventually started on BiPAP and admitted to the medical intensive care unit for further management. Nursing staff does report that the patient readily desaturates when he is removed from BiPAP therapy. Past Medical History Past Medical History (Chronic Problems): Chronic Problems (Last Reviewed 06/25/18 @ 15:[address] Osmar Garcia MD) History of coronary artery stent placement (Chronic 10/27/08) PCI-BMS-Mid RCA w/ 3.0 x 28 mm Liberte and BMS-Prox RCA w/ 3.5 x 20 mm Liberte 10/27/2008 Hyperlipidemia (Chronic) Atherosclerotic heart disease of [place] coronary artery without angina pectoris (Chronic) Hypertension (Chronic) Medical History: Medical History (Last Reviewed 06/25/18 @ 15:[address] Osmar Garcia MD) Old non-ST elevation myocardial infarction (NSTEMI) (Resolved) I25.2 Hyperlipidemia (Chronic) E78.5 Atherosclerotic heart disease of [place] coronary artery without angina pectoris (Chronic) I25.10 Hypertension (Chronic) I10 Renal calculus, bilateral N20.0 Allergies diphenhydramine [From Benadryl] Adverse Reaction (Verified 01/02/20 16:37) passes out statins Adverse Reaction (Severe, Uncoded 01/02/20 14:57) Intolerance-Myalgia Home Medications: Ambulatory Orders Medication Instructions Recorded nitroglycerin 0.4 mg sublingual 0.4 mg SUBLINGUAL Q5-15M PRN 04/02/17 tablet Famotidine 20 mg PO DAILY 12/29/19 Aspirin E.C. [Ecotrin] 81 mg PO DAILY@0800 01/02/20 Atorvastatin Calcium 40 mg PO DAILY 01/02/20 Clopidogrel Bisulfate [Clopidogrel] 75 mg PO DAILY 01/02/20 Lisinopril 40 mg PO DAILY 01/02/20 Metoprolol Tartrate [Lopressor 12.5 mg PO BID 01/02/20 (beta eugenia)] Surgical History: Surgical History (Last Reviewed 06/25/18 @ 15:[address] Osmar Garcia MD) History of coronary artery stent placement (Chronic) Onset Date: 10/27/08 Z95.5 PCI-BMS-Mid RCA w/ 3.0 x 28 mm Liberte and BMS-Prox RCA w/ 3.5 x 20 mm Liberte 10/27/2008 Surgical History: - - PCI x2, tonsillectomy. Psychiatric History: No pertinent psych hx Lives: Spouse/ Significant Other Smoking Status: Former smoker Tobacco Use: Cigarettes Alcohol: None Drugs: None - *Family History Maternal Family History: Family History (Last Reviewed 06/25/18 @ 15:[address] Osmar Garcia MD) Mother CAD (coronary artery disease) History Items: High Cholesterol, Heart Disease, Hypertension Paternal Family History: Family History (Last Reviewed 06/25/18 @ 15:[address] Osmar Garcia MD) Mother CAD (coronary artery disease) History Items: Cancer - Father with a history of leukemia. Review of Systems Constitutional: Reports: Chills, Fever, Fatigue Eyes: Denies: Blurred vision, Double vision HEENT: Reports: Head Aches Cardiovascular: Denies: Chest Pain, Palpitations Respiratory: Reports: Cough, Shortness of Breath Gastrointestinal: Denies: Abdominal Pain, Nausea, Vomiting Genitourinary: Denies: Dysuria Musculoskeletal: Denies: Joint Pain, Joint Tenderness Neurological: Denies: Numbness, Tingling, Focal weakness Psychiatric: Denies: Anxiety, Depression, Homicidal Ideations, Suicidal Ideations Hematologic/ Lymphatic: Denies: Easy Bruising, Easy Bleeding Patient Problems: Active and Suspected Problems (Last Reviewed 06/25/18 @ 15:[address] Osmar Garcia MD) COVID-19 (Acute) Acute respiratory failure with hypoxia (Acute) Pneumonia (Acute) Severe sepsis (Acute) Objective: The patient's most recent lab work, culture data and imaging studies have all been personally reviewed. Coronavirus PCR was positive on January 01. Strep and urine Legionella antigens were negative. Respiratory viral panel was negative. Blood and urine cultures are pending. - Physical Exam Vitals/I&O's: Vital Signs Temp Pulse Resp BP Pulse Ox 98.7 F 70 25 H 102/49 L 94 01/03/20 00:00 01/03/20 04:00 01/03/20 04:00 01/03/20 04:00 01/03/20 04:00 Oxygen Flow Rate (L/min) 80 Oxygen Delivery Method Bi-pap Weight: 182 lb 12.211 oz Body Mass Index (BMI) 26.0 Intake and Output for Last 24 Hours 01/01/20 01/02/20 01/03/20 23:59 23:59 23:59 Intake Total 955 / 955 475 / 475 Output Total 350 / 350 100 / 100 Balance 605 / 605 375 / 375 General: Alert, Cooperative, - - Currently tolerating BiPAP without issue. HEENT: Atraumatic, Normocephalic Oral: Dry Mucosa Neck: Supple, No Nodes, Trachea Midline Lungs: Diminished, Tachypneic Cardiovascular: Regular rate, Regular Rhythm Abdomen: Bowel Sounds Present, Soft, Non Tender Extremities: No clubbing, No cyanosis, No edema Skin: No breakdown Musculoskeletal: No Muscle Wasting Lymphatic: No Cervical, Supraclavicular, or Inguinal Adenopathy Neurological: Neuro grossly intact Psych/Mental Status: Normal Affect Labs (Last 48 Hours) 01/02/20 01/02/20 01/02/20 14:50 14:50 14:50 WBC 15.0 H RBC 4.54 L Hgb 13.2 Hct 38.9 L MCV 85.7 MCH 29.1 MCHC 33.9 RDW Std Deviation 41.9 RDW Coeff of James 13.3 Plt Count 402 MPV 10.9 Immature Gran % (Auto) 1.900 H Neut % (Auto) 83.6 H Lymph % (Auto) 8.0 L [place] % (Auto) 5.9 Eos % (Auto) 0.3 Baso % (Auto) 0.3 Absolute Neuts (auto) 12.5 H Absolute Lymphs (auto) 1.20 Nucleated RBC % 0 Toxic Granulation 1+ Platelet Estimate SLT INC RBC Morphology N CHROM Anisocytosis RARE PT 14.0 INR 1.1 APTT 35.5 D-Dimer Quant (PE/DVT) Sodium 142 Potassium 3.0 L Chloride 109 H Carbon Dioxide 25.0 Anion Gap 8 BUN 25 H Creatinine 1.35 H Estim Creat Clear Calc 49.57 Est GFR (MDRD) Af Amer 66 Est GFR (MDRD) Non-Af 55 L BUN/Creatinine Ratio 18.5 Glucose 138 H Hemoglobin A1c Lactic Acid Calcium 8.4 L Magnesium Ferritin Total Bilirubin 0.90 AST 69 H ALT 48 Alkaline Phosphatase 120 H Lactate Dehydrogenase Troponin I C-React Prot Ext Range Total Protein 7.2 Albumin 2.3 L Globulin 4.9 H Albumin/Globulin Ratio 0.5 L Procalcitonin COVID-19 (MARGARET) 01/02/20 01/02/20 01/02/20 14:50 15:06 19:40 WBC RBC Hgb Hct MCV MCH MCHC RDW Std Deviation RDW Coeff of James Plt Count MPV Immature Gran % (Auto) Neut % (Auto) Lymph % (Auto) [place] % (Auto) Eos % (Auto) Baso % (Auto) Absolute Neuts (auto) Absolute Lymphs (auto) Nucleated RBC % Toxic Granulation Platelet Estimate RBC Morphology Anisocytosis PT INR APTT D-Dimer Quant (PE/DVT) 3.89 H* Sodium Potassium Chloride Carbon Dioxide Anion Gap BUN Creatinine Estim Creat Clear Calc Est GFR (MDRD) Af Amer Est GFR (MDRD) Non-Af BUN/Creatinine Ratio Glucose Hemoglobin A1c Lactic Acid 2.1 H* Calcium Magnesium Ferritin Total Bilirubin AST ALT Alkaline Phosphatase Lactate Dehydrogenase Troponin I C-React Prot Ext Range Total Protein Albumin Globulin Albumin/Globulin Ratio Procalcitonin COVID-19 (MARGARET) Detected 01/02/20 01/02/20 01/02/20 19:40 19:40 19:40 WBC RBC Hgb Hct MCV MCH MCHC RDW Std Deviation RDW Coeff of James Plt Count MPV Immature Gran % (Auto) Neut % (Auto) Lymph % (Auto) [place] % (Auto) Eos % (Auto) Baso % (Auto) Absolute Neuts (auto) Absolute Lymphs (auto) Nucleated RBC % Toxic Granulation Platelet Estimate RBC Morphology Anisocytosis PT INR APTT D-Dimer Quant (PE/DVT) Sodium Potassium Chloride Carbon Dioxide Anion Gap BUN Creatinine Estim Creat Clear Calc Est GFR (MDRD) Af Amer Est GFR (MDRD) Non-Af BUN/Creatinine Ratio Glucose Hemoglobin A1c 5.7 H Lactic Acid Calcium Magnesium 2.8 H Ferritin 1750 H Total Bilirubin AST ALT Alkaline Phosphatase Lactate Dehydrogenase 705 H Troponin I 0.409 H C-React Prot Ext Range 220.00 H Total Protein Albumin Globulin Albumin/Globulin Ratio Procalcitonin 0.26 H COVID-19 (MARGARET) 01/02/20 01/02/20 01/03/20 19:40 22:08 02:30 WBC 14.3 H RBC 4.29 L Hgb 12.6 L Hct 37.5 L MCV 87.4 MCH 29.4 MCHC 33.6 RDW Std Deviation 43.2 RDW Coeff of James 13.5 Plt Count 385 MPV 10.9 Immature Gran % (Auto) 2.400 H Neut % (Auto) 87.4 H Lymph % (Auto) 5.3 L [place] % (Auto) 3.9 Eos % (Auto) 0.7 Baso % (Auto) 0.3 Absolute Neuts (auto) 12.5 H Absolute Lymphs (auto) 0.76 L Nucleated RBC % 0 Toxic Granulation Platelet Estimate RBC Morphology Anisocytosis PT INR APTT D-Dimer Quant (PE/DVT) Sodium Potassium Chloride Carbon Dioxide Anion Gap BUN Creatinine Estim Creat Clear Calc Est GFR (MDRD) Af Amer Est GFR (MDRD) Non-Af BUN/Creatinine Ratio Glucose Hemoglobin A1c Lactic Acid 1.9 Calcium Magnesium Ferritin Total Bilirubin AST ALT Alkaline Phosphatase Lactate Dehydrogenase Troponin I 0.556 H C-React Prot Ext Range Total Protein Albumin Globulin Albumin/Globulin Ratio Procalcitonin COVID-19 (MARGARET) 01/03/20 01/03/20 02:30 02:30 WBC RBC Hgb Hct MCV MCH MCHC RDW Std Deviation RDW Coeff of James Plt Count MPV Immature Gran % (Auto) Neut % (Auto) Lymph % (Auto) [place] % (Auto) Eos % (Auto) Baso % (Auto) Absolute Neuts (auto) Absolute Lymphs (auto) Nucleated RBC % Toxic Granulation Platelet Estimate RBC Morphology Anisocytosis PT INR APTT D-Dimer Quant (PE/DVT) Sodium 142 Potassium 3.5 Chloride 113 H Carbon Dioxide 24.0 Anion Gap 5 BUN 20 H Creatinine 0.81 Estim Creat Clear Calc 82.61 Est GFR (MDRD) Af Amer 119 Est GFR (MDRD) Non-Af 99 BUN/Creatinine Ratio 24.6 H Glucose 128 H Hemoglobin A1c Lactic Acid Calcium 7.5 L Magnesium Ferritin Total Bilirubin 0.60 AST 60 H ALT 42 Alkaline Phosphatase 102 Lactate Dehydrogenase Troponin I 0.520 H C-React Prot Ext Range Total Protein 6.3 L Albumin 2.0 L Globulin 4.3 H Albumin/Globulin Ratio 0.5 L Procalcitonin COVID-19 (MARGARET) Microbiology 01/02/20 20:20 Urine, Clean Catch Legionella Antigen - Final 01/02/20 20:20 Urine, Clean Catch Streptococcus pneumoniae Antigen (M - Final 01/02/20 15:06 Mucosa - Nose Respiratory Panel (PCR) - Preliminary 01/02/20 15:25 Mucosa - Nose Influenza Types A,B Direct FA (ASHWIN) - Final Clinical Impression(s) from Imaging Studies Chest X-Ray 01/02/20 15:40 IMPRESSION: Increasing hazy bilateral pulmonary opacities. Appearance is nonspecific but could represent multifocal pneumonia. Electronically Signed: Michael Riggs MD at 16:51 EDT , Service support , Chest CTA 01/03/20 00:20 IMPRESSION: 1. No CTA demonstrated pulmonary embolism or arterial dissection. 2. Extensive bilateral airspace disease throughout both lungs consistent with multifocal pneumonia. 3. Right-sided hilar lymphadenopathy and mediastinal lymphadenopathy.. Electronically Signed: Ladan Posada MD at 1:52 EDT , Service support , Current Medications Acetaminophen (Acetaminophen 325 Mg Tablet) 650 mg PO Q6H PRN PRN PRN Reason: Pain Score 1-10/Temp > 100.7 F Acetylcysteine (Acetylcysteine (Mucomyst Oral) 20% Soln) 1,200 mg PO BID [facility] Stop: 01/05/20 10:01 Last Admin: 01/02/20 22:36 Dose: Not Given Documented by: Al Hydroxide/Mg Hydroxide (Mag Hydrox/Al Hydrox/Simeth 30 Ml Udc) 30 ml PO Q6H PRN PRN PRN Reason: Gastric Burning Albuterol Sulfate (Albuterol 2.5 Mg/3 Ml Vial.Neb.) 2.5 mg INHALATION Q2H PRN PRN PRN Reason: Dyspnea, wheezing Aspirin (Aspirin E.C. 81 Mg Tablet) 81 mg PO DAILY [facility] Atorvastatin Calcium (Atorvastatin Calcium 40 Mg Tablet) 40 mg PO QHS [facility] Last Admin: 01/02/20 21:50 Dose: 40 mg Documented by: Clopidogrel Bisulfate (Clopidogrel Bisulfate 75 Mg Tablet) 75 mg PO DAILY [facility] Dexamethasone Sodium Phosphate (Dexamethasone 4 Mg/Ml Vial) 6 mg IV Q24 [facility] Last Admin: 01/02/20 21:53 Dose: 6 mg Documented by: Enoxaparin Sodium (Enoxaparin 40 Mg/0.4 Ml Syringe) 40 mg SC BID [facility] Famotidine (Famotidine 20 Mg Tablet) 20 mg PO DAILY [facility] Guaifenesin (Guaifenesin 10 Ml Udc (200mg/10ml)) 10 ml PO Q4H PRN PRN PRN Reason: COUGH Ceftriaxone Sodium 2 gm/ (Sodium Chloride) 50 mls @ 100 mls/hr IV Q24 [facility] Azithromycin 500 mg/ Dextrose 255 mls @ 250 mls/hr IV Q24 [facility] Sodium Chloride () 250 mls @ 15 mls/hr IV .[id number] PRN PRN Reason: Saline Flush Sodium Chloride () 250 mls @ 15 mls/hr IV .[id number] PRN PRN Reason: Additional IVPB Infusion Influenza Virus Vaccine Quadrival (Influenza Vaccine (6mos+)/Pf 0.5 Ml Syringe) 0.5 ml IM .ONCE ONE Stop: 01/03/20 10:01 Iopamidol (Contrast Allergy Safety Check) 0 ml IV X1 [facility] Last Admin: 01/02/20 22:37 Dose: 1 ml Documented by: Lisinopril (Lisinopril 40 Mg Tablet) 40 mg PO DAILY [facility] Melatonin (Melatonin 3 Mg Tablet) 3 mg PO QHS PRN PRN PRN Reason: INSOMNIA Metoprolol Tartrate (Metoprolol Tartrate 25 Mg Tablet) 12.5 mg PO BID [facility] Last Admin: 01/02/20 21:50 Dose: 12.5 mg Documented by: Morphine Sulfate (Morphine 2 Mg/Ml Syringe) 2 mg IV Q3H PRN PRN PRN Reason: Pain Score 6-10 Nitroglycerin (Nitroglycerin (Inpatient Use) 0.4 Mg Tab.Subl) 0.4 mg SUBLINGUAL Q5M PRN PRN Reason: CARDIAC/CHEST PAIN Ondansetron HCl (Ondansetron 4 Mg/2 Ml Vial) 4 mg IV Q8H PRN PRN PRN Reason: NAUSEA/VOMITING Oxycodone HCl (Oxycodone 5 Mg Tablet) 5 mg PO Q4H PRN PRN PRN Reason: Pain Score 4-5 Prochlorperazine Edisylate (Prochlorperazine 10 Mg/2 Ml Vial) 5 mg IV Q4H PRN PRN PRN Reason: Breakthrough Nausea/Vomiting Sodium Chloride (0.9% Saline Lock 10 Ml Syringe) 10 - 40 ml IV UD PRN PRN Reason: SALINE FLUSH Throat Lozenges (Benzocaine/Menthol 1 Lozenge) 1 lozenge MUCOUS MEM Q2H PRN PRN PRN Reason: SORE THROAT Assessment/Plan Active and Suspected Problems (Last Reviewed 06/25/18 @ 15:[address] Osmar Garcia MD) COVID-19 (Acute) Acute respiratory failure with hypoxia (Acute) Pneumonia (Acute) Severe sepsis (Acute) RECOMMENDATIONS: 1. Continue BiPAP therapy with plans to wean FiO2 as tolerated to maintain saturations at or above 90%. 2. Patient to remain n.p.o. for now until respiratory status stabilizes. 3. Continue Decadron 6 mg daily x10 days. 4. Continue empiric antimicrobials. 5. Recommend continuing therapeutic Lovenox, given elevated D-dimer level. IMPRESSIONS: 1. Acute hypoxemic respiratory failure The patient presented to the hospital with Covid-like symptoms in excess of 2 weeks duration. He was initially positive for coronavirus 12 days ago. However, his symptoms have continued to progress. Although there was no evidence of PE on CTA chest, I would recommend that we continue therapeutic Lovenox, given his elevated D-dimer level. In addition, the patient will be continued on Decadron as ordered. At this time, given the duration of his symptoms, I do not see an indication for remdesivir or convalescent plasma. The patient will be continued on BiPAP therapy and weaned as tolerated to maintain oxygen saturations at or above 90%. He will also be continued on empiric antimicrobials, should the radiographic findings noted represent superimposed bacterial pneumonia. 2. Acute kidney injury Likely prerenal in etiology. The patient did respond to gentle IV fluid hydration. Creatinine has normalized. We will continue to monitor urine output. No current indication for renal replacement therapy. 3. Indeterminate troponin/history of coronary artery disease status post PCI Suspect secondary to demand ischemia in the setting of #1. Continue current supportive measures along with outpatient medication regimen. 4. Hypertension/hyperlipidemia/GERD/advanced age Complicates care, management, recovery and prognosis. Continue home medications as indicated. TIME: 38 minutes of critical care time, independent of procedures, was spent addressing the patient's acute hypoxemic respiratory failure, acute kidney injury, indeterminate troponin, review of all data and collaboration with the care team. [phone]) [id number] Critical care first hour
--- NOTE | 2020-01-03 05:55 | EKG12_ITS ---
Test Reason : AM EKG Blood Pressure : / mmHG Vent. Rate : 084 BPM Atrial Rate : 084 BPM P-R Int : 146 ms QRS Dur : 098 ms QT Int : 406 ms P-R-T Axes : 030 -03 043 degrees QTc Int : 479 ms Normal sinus rhythm Low voltage QRS Borderline ECG When compared with ECG of 02-JAN-2020 15:26, MANUAL COMPARISON REQUIRED, DATA IS UNCONFIRMED Confirmed by JANINE LEE, AUSTIN ([id number]), copy editor ALIZE STILES ([id number]) on 01/06/2020 10:46:51 AM Referred By: TAISHA Confirmed By:AUSTIN MEHTA MD
[2020-01-03 06:45] LABS: Squamous Epithelial Cells - UA 0 SEEN /hpf (0-5)
[2020-01-03 06:46] LABS: Glucose, Dipstick Normal (Normal); Ketone-Dipstick 5 mg/dl (Negative); Leukocyte Esterase-Dipstick 25 /ul (Negative); Nitrite-Dipstick Negative (Negative); Occult Blood-Urine 250 /ul (Negative); Protein-Dipstick 100 mg/dl (Negative); Specific Gravity, Urine 1.015 (1.002-1.030); Urine Clarity Clear (Clear); Urine Urobilinogen 1 mg/dl (Normal)
[2020-01-03 07:04] LABS: Color, Urine Amber (Yellow); Urine Bilirubin Dipstick 1 mg/dL (Negative)
[2020-01-03 07:06] LABS: Bacteria 2+ /hpf (None Seen); Mucous, Urine 2+ /hpf (<or=2+); Red Blood Cells-Urine 25-50 SEEN /hpf (0-5); White Blood Cells 5-10 SEEN /hpf (0-5)
[2020-01-03 07:08] LABS: Fine Granular Cast- Urine 0-5 SEEN /lpf (0-5); Hyaline Cast 0-5 SEEN /lpf (0-5)
[2020-01-03 10:36] LABS: BNP,B-Type NATRIURETIC PEPTIDE 79.1 pg/mL (0-100)
[2020-01-03] MEDS: Enoxaparin 80 MG/0.8 ML Syringe SC (11:49)
[2020-01-03] MEDS: dexAMETHasone 4 MG/ML Vial 6 MG IV (11:50)
--- NOTE | 2020-01-03 11:51 | PN_ITS ---
Patient Problems: Active and Suspected Problems (Last Reviewed 06/25/18 @ 15:[address] Osmar Garcia MD) COVID-19 (Acute) Acute respiratory failure with hypoxia (Acute) Pneumonia (Acute) Severe sepsis (Acute) Subjective: Maintaining his sats on BiPAP, feeling better than when he came in Vitals/I&O's: Vital Signs Temp Pulse Resp BP Pulse Ox 98.7 F 76 25 H 143/76 H 94 01/03/20 00:00 01/03/20 09:25 01/03/20 09:25 01/03/20 07:00 01/03/20 09:25 Oxygen Flow Rate (L/min) 80 Oxygen Delivery Method Bi-pap Weight: 182 lb 12.211 oz Body Mass Index (BMI) 26.0 Intake and Output for Last 24 Hours 01/01/20 01/02/20 01/03/20 23:59 23:59 23:59 Intake Total 955 / 955 475 / 475 Output Total 350 / 350 250 / 250 Balance 605 / 605 225 / 225 General: Alert, Oriented x3, Cooperative, No apparent distress HEENT: Atraumatic, PERRLA, EOMI, Normocephalic Oral: Dry Mucosa Neck: Supple, No JVD Lungs: Normal air movement, No rhonchi, No wheeze, No rales, Diminished Cardiovascular: Regular rate, Regular Rhythm, Normal S1, Normal S2, No murmurs Abdomen: Soft, Non Tender, Non-Distended, No Hepato-splenomegaly Extremities: No edema, Capillary Refill Less than 3 Seconds Skin: No rashes, No breakdown Neurological: Neuro grossly intact, Sensory exam intact to light touch and pain Psych/Mental Status: Normal Affect, Appropriate Microbiology Past 72 Hours 01/02/20 15:06 Mucosa - Nose Respiratory Panel (PCR) - Final 01/02/20 20:20 Urine, Clean Catch Legionella Antigen - Final 01/02/20 20:20 Urine, Clean Catch Streptococcus pneumoniae Antigen (M - Final 01/02/20 15:25 Mucosa - Nose Influenza Types A,B Direct FA (ASHWIN) - Final Laboratory Results 01/02/20 14:50: WBC 15.0 H, RBC 4.54 L, Hgb 13.2, Hct 38.9 L, MCV 85.7, MCH 29.1, MCHC 33.9, RDW Std Deviation 41.9, RDW Coeff of James 13.3, Plt Count 402, MPV 10.9, Immature Gran % (Auto) 1.900 H, Neut % (Auto) 83.6 H, Lymph % (Auto) 8.0 L, [place] % (Auto) 5.9, Eos % (Auto) 0.3, Baso % (Auto) 0.3, Absolute Neuts (auto) 12.5 H, Absolute Lymphs (auto) 1.20, Nucleated RBC % 0, Toxic Granulation 1+, Platelet Estimate SLT INC, RBC Morphology N CHROM, Anisocytosis RARE 01/02/20 14:50: PT 14.0, INR 1.1, APTT 35.5 01/02/20 14:50: Sodium 142, Potassium 3.0 L, Chloride 109 H, Carbon Dioxide 25.0, Anion Gap 8, BUN 25 H, Creatinine 1.35 H, Estim Creat Clear Calc 49.57, Est GFR (MDRD) Af Amer 66, Est GFR (MDRD) Non-Af 55 L, BUN/Creatinine Ratio 18.5, Glucose 138 H, Calcium 8.4 L, Total Bilirubin 0.90, AST 69 H, ALT 48, Alkaline Phosphatase 120 H, Total Protein 7.2, Albumin 2.3 L, Globulin 4.9 H, Albumin/Globulin Ratio 0.5 L 01/02/20 14:50: Lactic Acid 2.1 H* 01/02/20 15:06: COVID-19 (MARGARET) Detected 01/02/20 19:40: D-Dimer Quant (PE/DVT) 3.89 H* 01/02/20 19:40: Magnesium 2.8 H, Ferritin 1750 H, Lactate Dehydrogenase 705 H, Troponin I 0.409 H, C-React Prot Ext Range 220.00 H 01/02/20 19:40: Hemoglobin A1c 5.7 H 01/02/20 19:40: Procalcitonin 0.26 H 01/02/20 19:40: Lactic Acid 1.9 01/02/20 20:20: Urine Color Leigh, Urine Clarity Clear, Urine pH 6.0, Ur Specific [place] 1.015, Urine Protein 100 H, Urine Glucose (UA) Normal, Urine Ketones 5 H, Urine Occult Blood 250 H, Urine Nitrite Negative, Urine Bilirubin 1 H, Urine Urobilinogen 1 H, Ur Leukocyte Esterase 25 H, Urine RBC 25-50 SEEN, Urine WBC 5-10 SEEN, Ur Squamous Epith Cells 0 SEEN, Urine Bacteria 2+, Hyaline Casts 0-5 SEEN, Fine Granular Casts 0-5 SEEN, Urine Mucus 2+ 01/02/20 22:08: Troponin I 0.556 H 01/03/20 02:30: WBC 14.3 H, RBC 4.29 L, Hgb 12.6 L, Hct 37.5 L, MCV 87.4, MCH 29.4, MCHC 33.6, RDW Std Deviation 43.2, RDW Coeff of James 13.5, Plt Count 385, MPV 10.9, Immature Gran % (Auto) 2.400 H, Neut % (Auto) 87.4 H, Lymph % (Auto) 5.3 L, [place] % (Auto) 3.9, Eos % (Auto) 0.7, Baso % (Auto) 0.3, Absolute Neuts ( auto) 12.5 H, Absolute Lymphs (auto) 0.76 L, Nucleated RBC % 0 01/03/20 02:30: Sodium 142, Potassium 3.5, Chloride 113 H, Carbon Dioxide 24.0, Anion Gap 5, BUN 20 H, Creatinine 0.81, Estim Creat Clear Calc 82.61, Est GFR (MDRD) Af Amer 119, Est GFR (MDRD) Non-Af 99, BUN/Creatinine Ratio 24.6 H, Glucose 128 H, Calcium 7.5 L, Total Bilirubin 0.60, AST 60 H, ALT 42, Alkaline Phosphatase 102, Total Protein 6.3 L, Albumin 2.0 L, Globulin 4.3 H, Albumin/Globulin Ratio 0.5 L 01/03/20 02:30: Troponin I 0.520 H 01/03/20 02:30: B-Natriuretic Peptide 79.1 Current Medications Acetaminophen (Acetaminophen 325 Mg Tablet) 650 mg PO Q6H PRN PRN PRN Reason: Pain Score 1-10/Temp > 100.7 F Al Hydroxide/Mg Hydroxide (Mag Hydrox/Al Hydrox/Simeth 30 Ml Udc) 30 ml PO Q6H PRN PRN PRN Reason: Gastric Burning Albuterol Sulfate (Albuterol 2.5 Mg/3 Ml Vial.Neb.) 2.5 mg INHALATION Q2H PRN PRN PRN Reason: Dyspnea, wheezing Aspirin (Aspirin E.C. 81 Mg Tablet) 81 mg PO DAILY [facility] Atorvastatin Calcium (Atorvastatin Calcium 40 Mg Tablet) 40 mg PO QHS [facility] Last Admin: 01/02/20 21:50 Dose: 40 mg Documented by: Clopidogrel Bisulfate (Clopidogrel Bisulfate 75 Mg Tablet) 75 mg PO DAILY [facility] Dexamethasone Sodium Phosphate (Dexamethasone 4 Mg/Ml Vial) 6 mg IV Q24 [facility] Last Admin: 01/02/20 21:53 Dose: 6 mg Documented by: Enoxaparin Sodium (Enoxaparin 80 Mg/0.8 Ml Syringe) 80 mg SC Q12@0600,1800 [facility] Famotidine (Famotidine 20 Mg Tablet) 20 mg PO DAILY [facility] Guaifenesin (Guaifenesin 10 Ml Udc (200mg/10ml)) 10 ml PO Q4H PRN PRN PRN Reason: COUGH Sodium Chloride () 250 mls @ 15 mls/hr IV .[id number] PRN PRN Reason: Saline Flush Sodium Chloride () 250 mls @ 15 mls/hr IV .[id number] PRN PRN Reason: Additional IVPB Infusion Piperacillin Sod/Tazobactam (Sod 3.375 gm/ Sodium Chloride) 50 mls @ 12.5 mls/hr IV Q8 [facility] Iopamidol (Contrast Allergy Safety Check) 0 ml IV X1 [facility] Last Admin: 01/02/20 22:37 Dose: 1 ml Documented by: Lisinopril (Lisinopril 40 Mg Tablet) 40 mg PO DAILY [facility] Metoprolol Tartrate (Metoprolol Tartrate 25 Mg Tablet) 12.5 mg PO BID [facility] Last Admin: 01/02/20 21:50 Dose: 12.5 mg Documented by: Nitroglycerin (Nitroglycerin (Inpatient Use) 0.4 Mg Tab.Subl) 0.4 mg SUBLINGUAL Q5M PRN PRN Reason: CARDIAC/CHEST PAIN Ondansetron HCl (Ondansetron 4 Mg/2 Ml Vial) 4 mg IV Q8H PRN PRN PRN Reason: NAUSEA/VOMITING Prochlorperazine Edisylate (Prochlorperazine 10 Mg/2 Ml Vial) 5 mg IV Q4H PRN PRN PRN Reason: Breakthrough Nausea/Vomiting Sodium Chloride (0.9% Saline Lock 10 Ml Syringe) 10 - 40 ml IV UD PRN PRN Reason: SALINE FLUSH Throat Lozenges (Benzocaine/Menthol 1 Lozenge) 1 lozenge MUCOUS MEM Q2H PRN PRN PRN Reason: SORE THROAT STROKE Vital Signs/Narrative: Vital Signs Pulse Resp Pulse Ox 01/03/20 09:25 76 25 H 94 Medical Necessity - Tobacco Use Smoking Status: Former smoker Tobacco Use: Cigarettes Assessment/Plan All Active Problems (Last Reviewed 06/25/18 @ 15:[address] Osmar Garcia MD) COVID-19 (Acute) Acute respiratory failure with hypoxia (Acute) Pneumonia (Acute) Severe sepsis (Acute) Chest pain (Acute) Old non-ST elevation myocardial infarction (NSTEMI) (Resolved) 1. Acute severe sepsis secondary acute hypoxic respiratory failure secondary to COVID-19 pneumonia -He was diagnosed with Covid almost 2 weeks ago and just completed his quarantine when he became more dyspneic and hypoxic. -Continue with BiPAP, which he is tolerating well -Continue with Decadron, he is too far out for remdesivir convalescent plasma -He did have an elevated D-dimer despite a CTA being negative for PE, continue with therapeutic Lovenox -Troponin is slightly elevated likely secondary to demand ischemia he does have a history of coronary artery disease 2. CKD 3 with renal insufficiency -Creatinine is slightly increased compared to his baseline of 1.1, he is 1.35 on admission and 0.81 today -We will continue to monitor 3. CAD status post stent/HTN/HLD/indeterminant troponin -He is on aspirin and Plavix -Continue with his statin as well as his lisinopril and metoprolol -Upon is likely secondary to demand ischemia from his acute hypoxic respiratory failure. 4. GERD -Stable -Continue with PPI DVT: Therapeutic Lovenox Inpatient E&M: [id number] Subs Hosp L2
[2020-01-03] MEDS: Clopidogrel Bisulfate 75 MG Tablet PO (11:53)
[2020-01-03] MEDS: Aspirin E.C. 81 MG Tablet PO (11:53)
[2020-01-03] MEDS: Famotidine 20 MG Tablet PO (11:53)
[2020-01-03] MEDS: Lisinopril 40 MG Tablet PO (11:54)
[2020-01-03] MEDS: Metoprolol Tartrate 25 MG Tablet 12.5 MG PO ×2 (11:54→20:47)
[2020-01-03] MEDS: Atorvastatin Calcium 40 MG Tablet PO (20:47)
--- NOTE | 2020-01-03 21:23 | NURSING ---
Updated daughter Skylar via phone. All questions answered.
[2020-01-04] VITALS (35 sets, daily range): BP systolic 122–173; BP diastolic 57–84; PULSE 57–90; RESP 12–25; TEMP 36.1–36.9; O2SAT 86–99
--- NOTE | 2020-01-04 04:08 | CPS ---
Pt.'s EPAP increased to 12 & FiO2 decreased to 75%; alveolar recruitment and slowly weaning pt.'s oxygenation demands
--- NOTE | 2020-01-04 05:18 | PN_ITS ---
Subjective: The patient was seen and examined at the bedside this morning. Events from the last 24 hours have been reviewed. The patient is currently afebrile, hemodynamically stable and maintaining appropriate oxygen saturations on BiPAP with an FiO2 requirement of 75%. The patient remains on therapeutic Lovenox, Decadron and antimicrobials. Creatinine has improved back to baseline. Objective: The patient's most recent lab work, culture data and imaging studies have all been personally reviewed. Coronavirus PCR was positive on January 01. Strep and urine Legionella antigens were negative. Respiratory viral panel was negative. Blood and urine cultures are pending. General: Alert, Cooperative, No apparent distress HEENT: Atraumatic, Normocephalic Oral: No Gingival or Mucosal Lesions/ Ulcerations Neck: Supple, No Nodes, Trachea Midline Lungs: No rhonchi, No wheeze, No rales, Diminished Cardiovascular: Regular rate, Regular Rhythm Abdomen: Bowel Sounds Present, Soft, Non Tender Extremities: No clubbing, No cyanosis, No edema Skin: No breakdown Musculoskeletal: No Tenderness to Palpation of Joints or Extremities Lymphatic: No Cervical, Supraclavicular, or Inguinal Adenopathy Neurological: Neuro grossly intact Psych/Mental Status: Normal Affect Vital Signs Temp Pulse Resp BP Pulse Ox 98.4 F 70 19 H 140/71 H 96 01/04/20 04:00 01/04/20 05:00 01/04/20 05:00 01/04/20 05:00 01/04/20 05:00 Oxygen Flow Rate (L/min) 80 Oxygen Delivery Method Bi-pap Weight: 183 lb 6.793 oz Body Mass Index (BMI) 26.0 Intake and Output for Last 24 Hours 01/02/20 01/03/20 01/04/20 23:59 23:59 23:59 Intake Total 955 / 955 1400 / 1400 150 / 150 Output Total 350 / 350 1550 / 1550 150 / 150 Balance 605 / 605 -150 / -150 0 / 0 Labs (Last 48 Hours) 01/02/20 01/02/20 01/02/20 14:50 14:50 14:50 WBC 15.0 H RBC 4.54 L Hgb 13.2 Hct 38.9 L MCV 85.7 MCH 29.1 MCHC 33.9 RDW Std Deviation 41.9 RDW Coeff of James 13.3 Plt Count 402 MPV 10.9 Immature Gran % (Auto) 1.900 H Neut % (Auto) 83.6 H Lymph % (Auto) 8.0 L [place] % (Auto) 5.9 Eos % (Auto) 0.3 Baso % (Auto) 0.3 Absolute Neuts (auto) 12.5 H Absolute Lymphs (auto) 1.20 Nucleated RBC % 0 Toxic Granulation 1+ Platelet Estimate SLT INC RBC Morphology N CHROM Anisocytosis RARE PT 14.0 INR 1.1 APTT 35.5 D-Dimer Quant (PE/DVT) Sodium 142 Potassium 3.0 L Chloride 109 H Carbon Dioxide 25.0 Anion Gap 8 BUN 25 H Creatinine 1.35 H Estim Creat Clear Calc 49.57 Est GFR (MDRD) Af Amer 66 Est GFR (MDRD) Non-Af 55 L BUN/Creatinine Ratio 18.5 Glucose 138 H Hemoglobin A1c Lactic Acid Calcium 8.4 L Magnesium Ferritin Total Bilirubin 0.90 AST 69 H ALT 48 Alkaline Phosphatase 120 H Lactate Dehydrogenase Troponin I C-React Prot Ext Range B-Natriuretic Peptide Total Protein 7.2 Albumin 2.3 L Globulin 4.9 H Albumin/Globulin Ratio 0.5 L Procalcitonin Urine Color Urine Clarity Urine pH Ur Specific [place] Urine Protein Urine Glucose (UA) Urine Ketones Urine Occult Blood Urine Nitrite Urine Bilirubin Urine Urobilinogen Ur Leukocyte Esterase Urine RBC Urine WBC Ur Squamous Epith Cells Urine Bacteria Hyaline Casts Fine Granular Casts Urine Mucus COVID-19 (MARGARET) 01/02/20 01/02/20 01/02/20 14:50 15:06 19:40 WBC RBC Hgb Hct MCV MCH MCHC RDW Std Deviation RDW Coeff of James Plt Count MPV Immature Gran % (Auto) Neut % (Auto) Lymph % (Auto) [place] % (Auto) Eos % (Auto) Baso % (Auto) Absolute Neuts (auto) Absolute Lymphs (auto) Nucleated RBC % Toxic Granulation Platelet Estimate RBC Morphology Anisocytosis PT INR APTT D-Dimer Quant (PE/DVT) 3.89 H* Sodium Potassium Chloride Carbon Dioxide Anion Gap BUN Creatinine Estim Creat Clear Calc Est GFR (MDRD) Af Amer Est GFR (MDRD) Non-Af BUN/Creatinine Ratio Glucose Hemoglobin A1c Lactic Acid 2.1 H* Calcium Magnesium Ferritin Total Bilirubin AST ALT Alkaline Phosphatase Lactate Dehydrogenase Troponin I C-React Prot Ext Range B-Natriuretic Peptide Total Protein Albumin Globulin Albumin/Globulin Ratio Procalcitonin Urine Color Urine Clarity Urine pH Ur Specific [place] Urine Protein Urine Glucose (UA) Urine Ketones Urine Occult Blood Urine Nitrite Urine Bilirubin Urine Urobilinogen Ur Leukocyte Esterase Urine RBC Urine WBC Ur Squamous Epith Cells Urine Bacteria Hyaline Casts Fine Granular Casts Urine Mucus COVID-19 (MARGARET) Detected 01/02/20 01/02/20 01/02/20 19:40 19:40 19:40 WBC RBC Hgb Hct MCV MCH MCHC RDW Std Deviation RDW Coeff of James Plt Count MPV Immature Gran % (Auto) Neut % (Auto) Lymph % (Auto) [place] % (Auto) Eos % (Auto) Baso % (Auto) Absolute Neuts (auto) Absolute Lymphs (auto) Nucleated RBC % Toxic Granulation Platelet Estimate RBC Morphology Anisocytosis PT INR APTT D-Dimer Quant (PE/DVT) Sodium Potassium Chloride Carbon Dioxide Anion Gap BUN Creatinine Estim Creat Clear Calc Est GFR (MDRD) Af Amer Est GFR (MDRD) Non-Af BUN/Creatinine Ratio Glucose Hemoglobin A1c 5.7 H Lactic Acid Calcium Magnesium 2.8 H Ferritin 1750 H Total Bilirubin AST ALT Alkaline Phosphatase Lactate Dehydrogenase 705 H Troponin I 0.409 H C-React Prot Ext Range 220.00 H B-Natriuretic Peptide Total Protein Albumin Globulin Albumin/Globulin Ratio Procalcitonin 0.26 H Urine Color Urine Clarity Urine pH Ur Specific [place] Urine Protein Urine Glucose (UA) Urine Ketones Urine Occult Blood Urine Nitrite Urine Bilirubin Urine Urobilinogen Ur Leukocyte Esterase Urine RBC Urine WBC Ur Squamous Epith Cells Urine Bacteria Hyaline Casts Fine Granular Casts Urine Mucus COVID-19 (MARGARET) 01/02/20 01/02/20 01/02/20 19:40 20:20 22:08 WBC RBC Hgb Hct MCV MCH MCHC RDW Std Deviation RDW Coeff of James Plt Count MPV Immature Gran % (Auto) Neut % (Auto) Lymph % (Auto) [place] % (Auto) Eos % (Auto) Baso % (Auto) Absolute Neuts (auto) Absolute Lymphs (auto) Nucleated RBC % Toxic Granulation Platelet Estimate RBC Morphology Anisocytosis PT INR APTT D-Dimer Quant (PE/DVT) Sodium Potassium Chloride Carbon Dioxide Anion Gap BUN Creatinine Estim Creat Clear Calc Est GFR (MDRD) Af Amer Est GFR (MDRD) Non-Af BUN/Creatinine Ratio Glucose Hemoglobin A1c Lactic Acid 1.9 Calcium Magnesium Ferritin Total Bilirubin AST ALT Alkaline Phosphatase Lactate Dehydrogenase Troponin I 0.556 H C-React Prot Ext Range B-Natriuretic Peptide Total Protein Albumin Globulin Albumin/Globulin Ratio Procalcitonin Urine Color Leigh Urine Clarity Clear Urine pH 6.0 Ur Specific [place] 1.015 Urine Protein 100 H Urine Glucose (UA) Normal Urine Ketones 5 H Urine Occult Blood 250 H Urine Nitrite Negative Urine Bilirubin 1 H Urine Urobilinogen 1 H Ur Leukocyte Esterase 25 H Urine RBC 25-50 SEEN Urine WBC 5-10 SEEN Ur Squamous Epith Cells 0 SEEN Urine Bacteria 2+ Hyaline Casts 0-5 SEEN Fine Granular Casts 0-5 SEEN Urine Mucus 2+ COVID-19 (MARGARET) 01/03/20 01/03/20 01/03/20 02:30 02:30 02:30 WBC 14.3 H RBC 4.29 L Hgb 12.6 L Hct 37.5 L MCV 87.4 MCH 29.4 MCHC 33.6 RDW Std Deviation 43.2 RDW Coeff of James 13.5 Plt Count 385 MPV 10.9 Immature Gran % (Auto) 2.400 H Neut % (Auto) 87.4 H Lymph % (Auto) 5.3 L [place] % (Auto) 3.9 Eos % (Auto) 0.7 Baso % (Auto) 0.3 Absolute Neuts (auto) 12.5 H Absolute Lymphs (auto) 0.76 L Nucleated RBC % 0 Toxic Granulation Platelet Estimate RBC Morphology Anisocytosis PT INR APTT D-Dimer Quant (PE/DVT) Sodium 142 Potassium 3.5 Chloride 113 H Carbon Dioxide 24.0 Anion Gap 5 BUN 20 H Creatinine 0.81 Estim Creat Clear Calc 82.61 Est GFR (MDRD) Af Amer 119 Est GFR (MDRD) Non-Af 99 BUN/Creatinine Ratio 24.6 H Glucose 128 H Hemoglobin A1c Lactic Acid Calcium 7.5 L Magnesium Ferritin Total Bilirubin 0.60 AST 60 H ALT 42 Alkaline Phosphatase 102 Lactate Dehydrogenase Troponin I 0.520 H C-React Prot Ext Range B-Natriuretic Peptide Total Protein 6.3 L Albumin 2.0 L Globulin 4.3 H Albumin/Globulin Ratio 0.5 L Procalcitonin Urine Color Urine Clarity Urine pH Ur Specific [place] Urine Protein Urine Glucose (UA) Urine Ketones Urine Occult Blood Urine Nitrite Urine Bilirubin Urine Urobilinogen Ur Leukocyte Esterase Urine RBC Urine WBC Ur Squamous Epith Cells Urine Bacteria Hyaline Casts Fine Granular Casts Urine Mucus COVID-19 (MARGARET) 01/03/20 02:30 WBC RBC Hgb Hct MCV MCH MCHC RDW Std Deviation RDW Coeff of James Plt Count MPV Immature Gran % (Auto) Neut % (Auto) Lymph % (Auto) [place] % (Auto) Eos % (Auto) Baso % (Auto) Absolute Neuts (auto) Absolute Lymphs (auto) Nucleated RBC % Toxic Granulation Platelet Estimate RBC Morphology Anisocytosis PT INR APTT D-Dimer Quant (PE/DVT) Sodium Potassium Chloride Carbon Dioxide Anion Gap BUN Creatinine Estim Creat Clear Calc Est GFR (MDRD) Af Amer Est GFR (MDRD) Non-Af BUN/Creatinine Ratio Glucose Hemoglobin A1c Lactic Acid Calcium Magnesium Ferritin Total Bilirubin AST ALT Alkaline Phosphatase Lactate Dehydrogenase Troponin I C-React Prot Ext Range B-Natriuretic Peptide 79.1 Total Protein Albumin Globulin Albumin/Globulin Ratio Procalcitonin Urine Color Urine Clarity Urine pH Ur Specific [place] Urine Protein Urine Glucose (UA) Urine Ketones Urine Occult Blood Urine Nitrite Urine Bilirubin Urine Urobilinogen Ur Leukocyte Esterase Urine RBC Urine WBC Ur Squamous Epith Cells Urine Bacteria Hyaline Casts Fine Granular Casts Urine Mucus COVID-19 (MARGARET) Microbiology 01/02/20 15:06 Mucosa - Nose Respiratory Panel (PCR) - Final 01/02/20 20:20 Urine, Clean Catch Legionella Antigen - Final 01/02/20 20:20 Urine, Clean Catch Streptococcus pneumoniae Antigen (M - Final 01/02/20 15:25 Mucosa - Nose Influenza Types A,B Direct FA (ASHWIN) - Final Clinical Impression(s) from Imaging Studies Chest X-Ray 01/02/20 15:40 IMPRESSION: Increasing hazy bilateral pulmonary opacities. Appearance is nonspecific but could represent multifocal pneumonia. Electronically Signed: Michael Riggs MD at 16:51 EDT , Service support , Chest CTA 01/03/20 00:20 IMPRESSION: 1. No CTA demonstrated pulmonary embolism or arterial dissection. 2. Extensive bilateral airspace disease throughout both lungs consistent with multifocal pneumonia. 3. Right-sided hilar lymphadenopathy and mediastinal lymphadenopathy.. Electronically Signed: Ladan Posada MD at 1:52 EDT , Service support , Medical Necessity - Tobacco Use Smoking Status: Former smoker Tobacco Use: Cigarettes Assessment/Plan All Active Problems (Last Reviewed 06/25/18 @ 15:[address] Osmar Garcia MD) COVID-19 (Acute) Acute respiratory failure with hypoxia (Acute) Pneumonia (Acute) Severe sepsis (Acute) Chest pain (Acute) Old non-ST elevation myocardial infarction (NSTEMI) (Resolved) RECOMMENDATIONS: 1. Continue BiPAP therapy with plans to wean FiO2 as tolerated to maintain saturations at or above 90%. 2. Patient to remain n.p.o. for now until respiratory status stabilizes. 3. Continue Decadron 6 mg daily x10 days. 4. Continue empiric antimicrobials. 5. Recommend continuing therapeutic Lovenox, given elevated D-dimer level. IMPRESSIONS: 1. Acute hypoxemic respiratory failure The patient presented to the hospital with Covid-like symptoms in excess of 2 weeks duration. He was initially positive for coronavirus 12 days ago. However, his symptoms have continued to progress. Although there was no evidence of PE on CTA chest, I would recommend that we continue therapeutic Lovenox, given his elevated D-dimer level. In addition, the patient will be continued on Decadron as ordered. At this time, given the duration of his symptoms, I do not see an indication for remdesivir or convalescent plasma. The patient will be continued on BiPAP therapy and weaned as tolerated to maintain oxygen saturations at or above 90%. He will also be continued on empiric antimicrobials, should the radiographic findings noted represent superimposed bacterial pneumonia. 2. Acute kidney injury Likely prerenal in etiology. The patient did respond to gentle IV fluid hydration. Creatinine has normalized. We will continue to monitor urine output. No current indication for renal replacement therapy. 3. Indeterminate troponin/history of coronary artery disease status post PCI Suspect secondary to demand ischemia in the setting of #1. Continue current supportive measures along with outpatient medication regimen. 4. Hypertension/hyperlipidemia/GERD/advanced age Complicates care, management, recovery and prognosis. Continue home medications as indicated. TIME: 33 minutes of critical care time, independent of procedures, was spent addressing the patient's acute hypoxemic respiratory failure, acute kidney injury, indeterminate troponin, review of all data and collaboration with the care team. [id number]) [id number] Critical care first hour
[2020-01-04] MEDS: Enoxaparin 80 MG/0.8 ML Syringe SC ×2 (05:47→17:46)
[2020-01-04] MEDS: dexAMETHasone 4 MG/ML Vial 6 MG IV (09:52)
[2020-01-04] MEDS: Aspirin E.C. 81 MG Tablet PO (09:52)
[2020-01-04] MEDS: Metoprolol Tartrate 25 MG Tablet 12.5 MG PO ×2 (09:53→20:35)
[2020-01-04] MEDS: Lisinopril 40 MG Tablet PO (09:53)
[2020-01-04] MEDS: Clopidogrel Bisulfate 75 MG Tablet PO (09:54)
[2020-01-04] MEDS: Famotidine 20 MG Tablet PO (09:54)
--- NOTE | 2020-01-04 12:12 | PCM.PN.HOSP ---
Patient Problems: Active and Suspected Problems (Last Reviewed 06/25/18 @ 15:[address] Osmar Garcia MD) COVID-19 (Acute) Acute respiratory failure with hypoxia (Acute) Pneumonia (Acute) Severe sepsis (Acute) Subjective: Feels okay today, tolerating the BiPAP very well maintaining his oxygen saturations. Vitals/I&O's: Vital Signs Temp Pulse Resp BP Pulse Ox 98 F 62 20 H 151/71 H 90 01/04/20 08:00 01/04/20 11:00 01/04/20 11:00 01/04/20 11:00 01/04/20 11:00 Oxygen Flow Rate (L/min) 80 Oxygen Delivery Method Bi-pap Weight: 183 lb 6.793 oz Body Mass Index (BMI) 26.0 Intake and Output for Last 24 Hours 01/02/20 01/03/20 01/04/20 23:59 23:59 23:59 Intake Total 955 / 955 1400 / 1400 200 / 200 Output Total 350 / 350 1550 / 1550 300 / 300 Balance 605 / 605 -150 / -150 -100 / -100 General: Alert, Oriented x3, Cooperative, No apparent distress HEENT: Atraumatic, PERRLA, EOMI, Normocephalic Oral: Dry Mucosa Neck: Supple, No JVD Lungs: Normal air movement, No rhonchi, No wheeze, No rales, Diminished Cardiovascular: Regular rate, Regular Rhythm, Normal S1, Normal S2, No murmurs Abdomen: Soft, Non Tender, Non-Distended, No Hepato-splenomegaly Extremities: No edema, Capillary Refill Less than 3 Seconds Skin: No rashes, No breakdown Neurological: Neuro grossly intact, Sensory exam intact to light touch and pain Psych/Mental Status: Normal Affect, Appropriate Microbiology Past 72 Hours 01/02/20 20:20 Urine, Clean Catch Urine Culture - Preliminary Culture exhibits no growth. 01/02/20 15:06 Mucosa - Nose Respiratory Panel (PCR) - Final 01/02/20 20:20 Urine, Clean Catch Legionella Antigen - Final 01/02/20 20:20 Urine, Clean Catch Streptococcus pneumoniae Antigen (M - Final 01/02/20 15:25 Mucosa - Nose Influenza Types A,B Direct FA (ASHWIN) - Final Current Medications Acetaminophen (Acetaminophen 325 Mg Tablet) 650 mg PO Q6H PRN PRN PRN Reason: Pain Score 1-10/Temp > 100.7 F Al Hydroxide/Mg Hydroxide (Mag Hydrox/Al Hydrox/Simeth 30 Ml Udc) 30 ml PO Q6H PRN PRN PRN Reason: Gastric Burning Albuterol Sulfate (Albuterol 2.5 Mg/3 Ml Vial.Neb.) 2.5 mg INHALATION Q2H PRN PRN PRN Reason: Dyspnea, wheezing Aspirin (Aspirin E.C. 81 Mg Tablet) 81 mg PO DAILY [facility] Last Admin: 01/04/20 09:52 Dose: 81 mg Documented by: Atorvastatin Calcium (Atorvastatin Calcium 40 Mg Tablet) 40 mg PO QHS [facility] Last Admin: 01/03/20 20:47 Dose: 40 mg Documented by: Clopidogrel Bisulfate (Clopidogrel Bisulfate 75 Mg Tablet) 75 mg PO DAILY [facility] Last Admin: 01/04/20 09:54 Dose: 75 mg Documented by: Dexamethasone Sodium Phosphate (Dexamethasone 4 Mg/Ml Vial) 6 mg IV Q24 [facility] Last Admin: 01/04/20 09:52 Dose: 6 mg Documented by: Enoxaparin Sodium (Enoxaparin 80 Mg/0.8 Ml Syringe) 80 mg SC Q12@0600,1800 [facility] Last Admin: 01/04/20 05:47 Dose: 80 mg Documented by: Famotidine (Famotidine 20 Mg Tablet) 20 mg PO DAILY [facility] Last Admin: 01/04/20 09:54 Dose: 20 mg Documented by: Guaifenesin (Guaifenesin 10 Ml Udc (200mg/10ml)) 10 ml PO Q4H PRN PRN PRN Reason: COUGH Sodium Chloride () 250 mls @ 15 mls/hr IV .[id number] PRN PRN Reason: Saline Flush Sodium Chloride () 250 mls @ 15 mls/hr IV .[id number] PRN PRN Reason: Additional IVPB Infusion Piperacillin Sod/Tazobactam (Sod 3.375 gm/ Sodium Chloride) 50 mls @ 12.5 mls/hr IV Q8 [facility] Last Admin: 01/04/20 05:46 Dose: 12.5 mls/hr Documented by: Lisinopril (Lisinopril 40 Mg Tablet) 40 mg PO DAILY [facility] Last Admin: 01/04/20 09:53 Dose: 40 mg Documented by: Metoprolol Tartrate (Metoprolol Tartrate 25 Mg Tablet) 12.5 mg PO BID [facility] Last Admin: 01/04/20 09:53 Dose: 12.5 mg Documented by: Nitroglycerin (Nitroglycerin (Inpatient Use) 0.4 Mg Tab.Subl) 0.4 mg SUBLINGUAL Q5M PRN PRN Reason: CARDIAC/CHEST PAIN Ondansetron HCl (Ondansetron 4 Mg/2 Ml Vial) 4 mg IV Q8H PRN PRN PRN Reason: NAUSEA/VOMITING Prochlorperazine Edisylate (Prochlorperazine 10 Mg/2 Ml Vial) 5 mg IV Q4H PRN PRN PRN Reason: Breakthrough Nausea/Vomiting Sodium Chloride (0.9% Saline Lock 10 Ml Syringe) 10 - 40 ml IV UD PRN PRN Reason: SALINE FLUSH Throat Lozenges (Benzocaine/Menthol 1 Lozenge) 1 lozenge MUCOUS MEM Q2H PRN PRN PRN Reason: SORE THROAT STROKE Vital Signs/Narrative: Vital Signs Pulse Resp BP BP Pulse Ox 01/04/20 11:00 62 20 H 151/71 H 90 01/04/20 10:00 69 20 H 142/78 H 89 01/04/20 09:53 68 143/70 H 01/04/20 09:00 69 20 H 143/70 H 95 01/04/20 08:40 60 20 H Medical Necessity - Tobacco Use Smoking Status: Former smoker Tobacco Use: Cigarettes Assessment/Plan All Active Problems (Last Reviewed 06/25/18 @ 15:[address] Osmar Garcia MD) COVID-19 (Acute) Acute respiratory failure with hypoxia (Acute) Pneumonia (Acute) Severe sepsis (Acute) Chest pain (Acute) Old non-ST elevation myocardial infarction (NSTEMI) (Resolved) 1. Acute severe sepsis secondary acute hypoxic respiratory failure secondary to COVID-19 pneumonia -He was diagnosed with Covid almost 2 weeks ago and just completed his quarantine when he became more dyspneic and hypoxic. -Continue with BiPAP, which he is tolerating well -Continue with Decadron, he is too far out for remdesivir convalescent plasma -He did have an elevated D-dimer despite a CTA being negative for PE, continue with therapeutic Lovenox -Troponin is slightly elevated likely secondary to demand ischemia he does have a history of coronary artery disease 2. CKD 3 with renal insufficiency -Creatinine is slightly increased compared to his baseline of 1.1, he is 1.35 on admission and 0.81 today -We will continue to monitor 3. CAD status post stent/HTN/HLD/indeterminant troponin -He is on aspirin and Plavix -Continue with his statin as well as his lisinopril and metoprolol -Upon is likely secondary to demand ischemia from his acute hypoxic respiratory failure. 4. GERD -Stable -Continue with PPI DVT: Therapeutic Lovenox Inpatient E&M: [id number] Subs Hosp L2
[2020-01-04] MEDS: Atorvastatin Calcium 40 MG Tablet PO (20:35)
[2020-01-05] VITALS (32 sets, daily range): BP systolic 113–168; BP diastolic 51–91; PULSE 18–99; RESP 12–27; TEMP 36.6–36.9; O2SAT 88–98
[2020-01-05 04:18] LABS: Absolute Lymphocyte Count 1.42 X10^3/uL (0.83-4.51); Absolute Neutrophil Count 15.5 X10^3/uL (2.0-7.7); Basophil# 0.04 X10^3/uL; Basophil% 0.2 % (0-1); Eosinophil# 0.02 X10^3/uL; Eosinophils% 0.1 % (0-5); Hemoglobin 12.4 g/dL (13.0-16.5); Lymphocyte # 1.42 X10^3/ul (4.0); Lymphocyte % 7.8 % (19-41); Mean Corp Hgb Conc 32.6 g/dL (32-36); Mean Corpuscular Hgb 29.2 pg (27.0-32.0); Mean Corpuscular Volume 89.4 fL (80-94); Mean Platelet Vol. 10.2 fl (6.2-12.0); NRBC Flagged by Analyzer 0 % (0-5); Neutrophil # 15.46 X10^3/uL (2.7-7.7); Neutrophil % 84.4 % (47-70); Platelet Count 576 K/mm3 (150-450); RBC Distribution Width CV 13.9 % (11.6-14.6); RBC Distribution Width SD 45.1 fl (35.1-43.9); Red Blood Count 4.25 M/mm3 (4.6-6.2); White Blood Count 18.3 K/mm3 (4.4-11.0)
[2020-01-05 04:53] LABS: ALB/GLOB Ratio 0.5 RATIO (0.9-2.4); AST(SGOT) 61 U/L (15-37); Alanine Aminotransfer ALT/SGPT 61 U/L (16-61); Albumin, Serum 2.2 g/dL (3.2-5.0); Alkaline Phosphatase 155 U/L (45-117); Anion Gap 7 (5-15); BUN 28 mg/dL (7-18); BUN/Creat Ratio 28.2 RATIO (10-20); Calcium,Total 8.3 mg/dL (8.5-10.1); Chloride 115 mmol/L (98-107); Creatinine, Serum 0.99 mg/dL (0.70-1.30); EST Glomerular Filtration Rate 78 mL/min (>60); Est Glom Filt Rate - Afr Amer 95 mL/min (>60); Estimated Creatinine Clearance 67.59 ml/min; Globulin 4.5 g/dL (2.2-4.2); Glucose 99 mg/dL (74-106); Potassium 3.3 mmol/L (3.5-5.1); Protein, Total 6.7 g/dL (6.4-8.2); Sodium Level 148 mmol/L (136-145)
[2020-01-05] MEDS: Enoxaparin 80 MG/0.8 ML Syringe SC ×2 (05:51→18:40)
--- NOTE | 2020-01-05 06:45 | CPS ---
Pt.'s FiO2 decreased to 55%
[2020-01-05] MEDS: Metoprolol Tartrate 25 MG Tablet 12.5 MG PO ×2 (07:56→21:17)
[2020-01-05] MEDS: Famotidine 20 MG Tablet PO (07:56)
[2020-01-05] MEDS: Lisinopril 40 MG Tablet PO (07:57)
[2020-01-05] MEDS: Aspirin E.C. 81 MG Tablet PO (07:57)
[2020-01-05] MEDS: dexAMETHasone 4 MG/ML Vial 6 MG IV (07:58)
[2020-01-05] MEDS: Clopidogrel Bisulfate 75 MG Tablet PO (07:58)
--- NOTE | 2020-01-05 09:10 | PN_ITS ---
Patient Problems: Active and Suspected Problems (Last Reviewed 06/25/18 @ 15:[address] Osmar Garcia MD) COVID-19 (Acute) Acute respiratory failure with hypoxia (Acute) Pneumonia (Acute) Severe sepsis (Acute) Subjective: Transition from BiPAP to air Vo, he is maintaining his sats. He does feel little bit better though per report he is little bit more confused than he has been. Vitals/I&O's: Vital Signs Temp Pulse Resp BP Pulse Ox 98.2 F 92 17 150/77 H 93 01/05/20 04:00 01/05/20 08:00 01/05/20 08:00 01/05/20 08:00 01/05/20 06:00 Oxygen Flow Rate (L/min) 80 Oxygen Delivery Method Airvo Weight: 180 lb 8.937 oz Body Mass Index (BMI) 26.0 Intake and Output for Last 24 Hours 01/03/20 01/04/20 01/05/20 23:59 23:59 23:59 Intake Total 1400 / 1400 923.5 / 923.5 470 / 470 Output Total 1550 / 1550 1000 / 1000 500 / 500 Balance -150 / -150 -76.5 / -76.5 -30 / -30 General: Alert, Oriented x3, Cooperative, No apparent distress HEENT: Atraumatic, PERRLA, EOMI, Normocephalic Oral: Dry Mucosa Neck: Supple, No JVD Lungs: Normal air movement, No rhonchi, No wheeze, No rales, Diminished Cardiovascular: Regular rate, Regular Rhythm, Normal S1, Normal S2, No murmurs Abdomen: Soft, Non Tender, Non-Distended, No Hepato-splenomegaly Extremities: No edema, Capillary Refill Less than 3 Seconds Skin: No rashes, No breakdown Neurological: Neuro grossly intact, Sensory exam intact to light touch and pain Psych/Mental Status: Normal Affect, Appropriate Microbiology Past 72 Hours 01/02/20 20:20 Urine, Clean Catch Urine Culture - Final Culture exhibits no growth. 01/02/20 14:50 Blood Culture (Wb) - Right Forearm Blood Culture - Preliminary No growth in 48 hours. 01/02/20 14:45 Blood Culture (Wb) - Anticubital Left Blood Culture - Preliminary No growth in 48 hours. 01/02/20 15:06 Mucosa - Nose Respiratory Panel (PCR) - Final 01/02/20 20:20 Urine, Clean Catch Legionella Antigen - Final 01/02/20 20:20 Urine, Clean Catch Streptococcus pneumoniae Antigen (M - Final 01/02/20 15:25 Mucosa - Nose Influenza Types A,B Direct FA ([facility]) - Final Laboratory Results 01/05/20 04:10: WBC 18.3 H, RBC 4.25 L, Hgb 12.4 L, Hct 38.0 L, MCV 89.4, MCH 29.2, MCHC 32.6, RDW Std Deviation 45.1 H, RDW Coeff of James 13.9, Plt Count 576 H, MPV 10.2, Immature Gran % (Auto) 1.500 H, Neut % (Auto) 84.4 H, Lymph % (Auto) 7.8 L, Mccormick % (Auto) 6.0, Eos % (Auto) 0.1, Baso % (Auto) 0.2, Absolute Neuts (auto) 15.5 H, Absolute Lymphs (auto) 1.42, Nucleated RBC % 0 01/05/20 04:10: Sodium 148 H, Potassium 3.3 L, Chloride 115 H, Carbon Dioxide 26.0, Anion Gap 7, BUN 28 H, Creatinine 0.99, Estim Creat Clear Calc 67.59, Est GFR (MDRD) Af Amer 95, Est GFR (MDRD) Non-Af 78, BUN/Creatinine Ratio 28.2 H, Glucose 99, Calcium 8.3 L, Total Bilirubin 1.00, AST 61 H, ALT 61, Alkaline Phosphatase 155 H, Total Protein 6.7, Albumin 2.2 L, Globulin 4.5 H, Albumin/Globulin Ratio 0.5 L Current Medications Acetaminophen (Acetaminophen 325 Mg Tablet) 650 mg PO Q6H PRN PRN PRN Reason: Pain Score 1-10/Temp > 100.7 F Al Hydroxide/Mg Hydroxide (Mag Hydrox/Al Hydrox/Simeth 30 Ml Udc) 30 ml PO Q6H PRN PRN PRN Reason: Gastric Burning Albuterol Sulfate (Albuterol 2.5 Mg/3 Ml Vial.Neb.) 2.5 mg INHALATION Q2H PRN PRN PRN Reason: Dyspnea, wheezing Aspirin (Aspirin E.C. 81 Mg Tablet) 81 mg PO DAILY [facility] Last Admin: 01/05/20 07:57 Dose: 81 mg Documented by: Atorvastatin Calcium (Atorvastatin Calcium 40 Mg Tablet) 40 mg PO QHS [facility] Last Admin: 01/04/20 20:35 Dose: 40 mg Documented by: Clopidogrel Bisulfate (Clopidogrel Bisulfate 75 Mg Tablet) 75 mg PO DAILY [facility] Last Admin: 01/05/20 07:58 Dose: 75 mg Documented by: Dexamethasone Sodium Phosphate (Dexamethasone 4 Mg/Ml Vial) 6 mg IV Q24 [facility] Last Admin: 01/05/20 07:58 Dose: 6 mg Documented by: Enoxaparin Sodium (Enoxaparin 80 Mg/0.8 Ml Syringe) 80 mg SC Q12@0600,1800 [facility] Last Admin: 01/05/20 05:51 Dose: 80 mg Documented by: Famotidine (Famotidine 20 Mg Tablet) 20 mg PO DAILY [facility] Last Admin: 01/05/20 07:56 Dose: 20 mg Documented by: Guaifenesin (Guaifenesin 10 Ml Udc (200mg/10ml)) 10 ml PO Q4H PRN PRN PRN Reason: COUGH Sodium Chloride () 250 mls @ 15 mls/hr IV .[id number] PRN PRN Reason: Saline Flush Sodium Chloride () 250 mls @ 15 mls/hr IV .[id number] PRN PRN Reason: Additional IVPB Infusion Last Infusion: 01/05/20 00:47 Dose: 15 mls/hr Documented by: Piperacillin Sod/Tazobactam (Sod 3.375 gm/ Sodium Chloride) 50 mls @ 12.5 mls/hr IV Q8 [facility] Last Admin: 01/05/20 05:51 Dose: 12.5 mls/hr Documented by: Potassium Chloride () 10 meq in 100 mls @ 100 mls/hr IV BOLUS Q1H [facility] Stop: 01/05/20 10:14 Lisinopril (Lisinopril 40 Mg Tablet) 40 mg PO DAILY [facility] Last Admin: 01/05/20 07:57 Dose: 40 mg Documented by: Metoprolol Tartrate (Metoprolol Tartrate 25 Mg Tablet) 12.5 mg PO BID [facility] Last Admin: 01/05/20 07:56 Dose: 12.5 mg Documented by: Nitroglycerin (Nitroglycerin (Inpatient Use) 0.4 Mg Tab.Subl) 0.4 mg SUBLINGUAL Q5M PRN PRN Reason: CARDIAC/CHEST PAIN Ondansetron HCl (Ondansetron 4 Mg/2 Ml Vial) 4 mg IV Q8H PRN PRN PRN Reason: NAUSEA/VOMITING Prochlorperazine Edisylate (Prochlorperazine 10 Mg/2 Ml Vial) 5 mg IV Q4H PRN PRN PRN Reason: Breakthrough Nausea/Vomiting Sodium Chloride (0.9% Saline Lock 10 Ml Syringe) 10 - 40 ml IV UD PRN PRN Reason: SALINE FLUSH Throat Lozenges (Benzocaine/Menthol 1 Lozenge) 1 lozenge MUCOUS MEM Q2H PRN PRN PRN Reason: SORE THROAT STROKE Vital Signs/Narrative: Vital Signs Pulse Resp BP BP Pulse Ox 01/05/20 08:00 92 17 150/77 H 01/05/20 07:56 75 168/82 H 01/05/20 07:36 73 01/05/20 07:31 96 01/05/20 07:00 79 23 H 168/82 H 01/05/20 06:00 81 20 H 164/78 H 93 01/05/20 05:19 86 23 H 93 Medical Necessity - Tobacco Use Smoking Status: Former smoker Tobacco Use: Cigarettes Assessment/Plan All Active Problems (Last Reviewed 06/25/18 @ 15:[address] Osmar Garcia MD) COVID-19 (Acute) Acute respiratory failure with hypoxia (Acute) Pneumonia (Acute) Severe sepsis (Acute) Chest pain (Acute) Old non-ST elevation myocardial infarction (NSTEMI) (Resolved) 1. Acute severe sepsis secondary acute hypoxic respiratory failure secondary to COVID-19 pneumonia -He was diagnosed with Covid almost 2 weeks ago and just completed his quarantine when he became more dyspneic and hypoxic. -Transition to Airvo, maintaining sats -Continue with Decadron, he is too far out for remdesivir convalescent plasma -He did have an elevated D-dimer despite a CTA being negative for PE, continue with therapeutic Lovenox -Troponin is slightly elevated likely secondary to demand ischemia he does have a history of coronary artery disease 2. CKD 3 with renal insufficiency -Reading has returned to baseline -We will continue to monitor 3. CAD status post stent/HTN/HLD/indeterminant troponin -He is on aspirin and Plavix -Continue with his statin as well as his lisinopril and metoprolol -Upon is likely secondary to demand ischemia from his acute hypoxic respiratory failure. 4. GERD -Stable -Continue with PPI DVT: Therapeutic Lovenox Inpatient E&M: [id number] Subs Hosp L2
[2020-01-05] MEDS: Potassium Chloride 10mEq/100mL 10 MEQ/100 ML IV.SOLN. 100 MEQ IV BOLUS ×4 (09:58→13:28)
--- NOTE | 2020-01-05 11:12 | CASEMGMT ---
Per Zulema HOFFMANN CM who attended ICU rounds today, pt's daughter, Skylar Hollingsworth, is the contact manager to complete CM assessment at this time. Message left with Skylar at this time to call this RN CM back when able. Skylar's contact number is [phone] and is listed in pt demographics. Papito HOFFMANN CM
--- NOTE | 2020-01-05 11:15 | CASEMGMT ---
TAHIRA CORONEL Assessment: Phone interview with patient's daughter, Skylar Hollingsworth, for initial transition planning/care coordination assessment. TAHIRA CORONEL introduced self and role at [facility], daughter voices understanding. Daughter states that pt's is anxious and forgetful at times and daughter would prefer to be personal injury specialist at this time. Per daughter, has had not COVID sx's at this time, but she has been quarantined at home and her sister, Kristie Acevedo, is dropping off groceries, etc. to the porch. Pt was still on bipap this am but is now on airvo. Care providers, pharmacy, and demographics verified/updated at this time. Presentation: Pt COVID +, lightheaded, SOB Admitting dx: Resp failure, COVID PCP: [facility] Specialists: Radha cardio Preferred Pharmacy: [facility] Gerber-daughter agreeable for [facility] retail to be primary at this time for ease of getting meds at discharge. Insurance: [facility] Prescription Benefit: [facility] Living Will/HPOA: Daughter states pt does not have LW/HPOA that she is aware of and this RN HOMER notified her that there are no AD's on file at this time, voices understanding. LNOK: Glenny Kruger, ; Skylar Hollingsworth, daughter; Kristie Acevedo, daughter Living Arrangements: Daughter states pt lives with in permanent camper with addition and 1 step in and states no concerns at home for pt at this time. Pt is normally independent with ADL's. Transportation: Pt normally drives self and daughter states no transportation concerns at this time. DME/HHC: Pt has no current DME but CM to follow for home oxygen. Daughter is agreeable to [facility] for DME company as they are the preferred DME company at this time. Per daughter, pt has no hx of HHC or SNF in the past. Daughter states they would like to take pt home at discharge but she states they would like to re-evaluate closer to d/c. TAHIRA CORONEL advised daughter that CM will follow with pt for PT/OT evals and home oxygen need, voices understanding. Pt is retired. Pt does not smoke cigarettes or drink ETOH. CM to follow for any further discharge planning/needs. Advised pt to ask for CM if any further questions/concerns/needs arise, voices understanding. Pt Goal: Home Plan[place] TAHIRA CORONEL
--- NOTE | 2020-01-05 13:33 | PN_ITS ---
Subjective: Patient did okay overnight. Patient has been on BiPAP [id number] for the previous 24 hours. Patient was able to be weaned to Airvo earlier today. On my evaluation, patient was reporting significant discomfort in the suprapubic area. Patient was only able to void 50 cc or so spontaneously. No bleeding complications have been reported. General: Alert, Cooperative, - - Mild distress. HEENT: Atraumatic, PERRLA, EOMI, Normocephalic, - - No scleral injection or icterus noted Oral: Moist Mucosa, No Gingival or Mucosal Lesions/ Ulcerations Neck: Supple, No JVD, No Nodes, Trachea Midline Lungs: No rhonchi, No wheeze, No rales, Diminished Cardiovascular: Regular rate, Regular Rhythm, Normal S1, Normal S2, No murmurs, No rub noted, No Gallop Abdomen: Bowel Sounds Present, Soft, Non-Distended, Tender - Suprapubic that was worse with palpation, - - After my examination, patient had a bladder scan showing greater than 1000 cc. Extremities: No clubbing, No cyanosis, No edema, Capillary Refill Less than 3 Seconds Skin: No rashes, No breakdown Musculoskeletal: No Tenderness to Palpation of Joints or Extremities Lymphatic: No Cervical, Supraclavicular, or Inguinal Adenopathy Neurological: Cranial nerves II-XII grossly intact, Neuro grossly intact, Motor Exam 5/5 strength throughout Psych/Mental Status: Appropriate Vital Signs Temp Pulse Resp BP Pulse Ox 36.8 C 72 23 H 156/87 H 96 01/05/20 10:01/05/20 10:00 01/05/20 10:00 01/05/20 10:01/05/20 10:00 Oxygen Flow Rate (L/min) 80 Oxygen Delivery Method Airvo Weight: 81.9 kg Body Mass Index (BMI) 26.0 Intake and Output for Last 24 Hours 01/03/20 01/04/20 01/05/20 23:59 23:59 23:59 Intake Total 1400 / 1400 923.5 / 923.5 1070 / 1070 Output Total 1550 / 1550 1000 / 1000 625 / 625 Balance -150 / -150 -76.5 / -76.5 445 / 445 Labs (Last 48 Hours) 01/05/20 01/05/20 04:10 04:10 WBC 18.3 H RBC 4.25 L Hgb 12.4 L Hct 38.0 L MCV 89.4 MCH 29.2 MCHC 32.6 RDW Std Deviation 45.1 H RDW Coeff of James 13.9 Plt Count 576 H MPV 10.2 Immature Gran % (Auto) 1.500 H Neut % (Auto) 84.4 H Lymph % (Auto) 7.8 L Nelson % (Auto) 6.0 Eos % (Auto) 0.1 Baso % (Auto) 0.2 Absolute Neuts (auto) 15.5 H Absolute Lymphs (auto) 1.42 Nucleated RBC % 0 Sodium 148 H Potassium 3.3 L Chloride 115 H Carbon Dioxide 26.0 Anion Gap 7 BUN 28 H Creatinine 0.99 Estim Creat Clear Calc 67.59 Est GFR (MDRD) Af Amer 95 Est GFR (MDRD) Non-Af 78 BUN/Creatinine Ratio 28.2 H Glucose 99 Calcium 8.3 L Total Bilirubin 1.00 AST 61 H ALT 61 Alkaline Phosphatase 155 H Total Protein 6.7 Albumin 2.2 L Globulin 4.5 H Albumin/Globulin Ratio 0.5 L Microbiology 01/02/20 20:20 Urine, Clean Catch Urine Culture - Final Culture exhibits no growth. 01/02/20 14:50 Blood Culture (Wb) - Right Forearm Blood Culture - Preliminary No growth in 48 hours. 01/02/20 14:45 Blood Culture (Wb) - Anticubital Left Blood Culture - Preliminary No growth in 48 hours. Medical Necessity - Tobacco Use Smoking Status: Former smoker Tobacco Use: Cigarettes Assessment/Plan All Active Problems (Last Reviewed 06/25/18 @ 15:[address] Osmar Garcia MD) COVID-19 (Acute) Acute respiratory failure with hypoxia (Acute) Pneumonia (Acute) Severe sepsis (Acute) Chest pain (Acute) Old non-ST elevation myocardial infarction (NSTEMI) (Resolved) RECOMMENDATIONS: 1. Attempt Airvo during the day, possibly BiPAP at night. Wean FiO2 as tolerated to maintain saturations at or above 90%. 2. Possibly initiate diet tomorrow if able to tolerate Airvo 3. Complete Decadron 6 mg daily x10 days, therapeutic Lovenox and empiric antimicrobials. 4. Potassium repletion as indicated. 5. Possibly titrate antihypertensive medications IMPRESSIONS: 1. Acute hypoxemic respiratory failure Patient appears to be improving. Patient has tested positive for COVID- 19, but appears to be responding to therapy. Patient did have an elevated D- dimer, so would continue therapeutic anticoagulation. Decadron has been ordered. Patient has not been ordered Remdesivir convalescent serum secondary to protracted course. Continue to wean FiO2 as tolerated. Patient appears to be tolerating Airvo during the day, but anticipate BiPAP rescue needed at night. Continue empiric antibiotics pending culture data. 2. Acute kidney injury Improving. Likely prerenal in etiology. We will continue to monitor urine output. No current indication for renal replacement therapy. 3. Indeterminate troponin/history of coronary artery disease status post PCI Suspect secondary to demand ischemia in the setting of #1. Continue current supportive measures along with outpatient medication regimen. Patient is on therapeutic anticoagulation secondary to #1. 4. Hypertension/hyperlipidemia/GERD/advanced age Complicates care, management, recovery and prognosis. Continue home medications as indicated. Patient may require increase in antihypertensive medications. This may be secondary to Decadron complications. 5. Urinary retention Patient bladder scanned for over 1000 cc of urine. Courtney has been placed with improvement in abdominal exam. Will monitor renal function as this could lead to postobstructive uropathy. Will obtain a UA and culture to ensure there is no residual infection with Courtney placed. TIME: 31 minutes of critical care time, independent of procedures, was spent addressing the patient's acute hypoxemic respiratory failure, acute kidney injury, indeterminate troponin, review of all data and collaboration with the care team. (10 AM to 11 AM) 9xxxx: [id number] Critical care first hour
[2020-01-05 13:46] LABS: Mucous, Urine 0 SEEN /hpf (<or=2+); Squamous Epithelial Cells - UA 0 SEEN /hpf (0-5)
[2020-01-05 13:52] LABS: Color, Urine Yellow (Yellow); Glucose, Dipstick Normal (Normal); Ketone-Dipstick 5 mg/dl (Negative); Leukocyte Esterase-Dipstick 25 /ul (Negative); Nitrite-Dipstick Negative (Negative); Occult Blood-Urine 250 /ul (Negative); Protein-Dipstick 15 mg/dl (Negative); Urine Bilirubin Dipstick Negative (Negative); Urine Clarity Sl. Cloudy (Clear); Urine Urobilinogen 4 mg/dl (Normal)
[2020-01-05 13:59] LABS: Red Blood Cells-Urine 25-50 SEEN /hpf (0-5); White Blood Cells 0-5 SEEN /hpf (0-5)
[2020-01-05 14:00] LABS: Bacteria RARE /hpf (None Seen)
--- NOTE | 2020-01-05 16:05 | CON.PCM_ITS ---
Problem List (1) COVID-19 Status: Acute Reason for Consult: covid Consulted by: Dr. Wilhelm History of Present Illness: The patient is a 74 year old M who presented 01/01 with 2-3 weeks of headache, fever, cough, aches, diarrhea, dyspnea, and change in taste/smell. Lives with who has been feeling ok. No sputum. Admitted to icu on dex, zosyn after initial azithro/ceftriaxone. Feeling ok, CT showed no PE. Full ROS performed and neg except as noted above. - Medical History Past Medical History (Chronic Problems): Chronic Problems (Last Reviewed 06/25/18 @ 15:[address] Osmar Garcia MD) History of coronary artery stent placement (Chronic 10/27/08) PCI-BMS-Mid RCA w/ 3.0 x 28 mm Liberte and BMS-Prox RCA w/ 3.5 x 20 mm Liberte 10/27/2008 Hyperlipidemia (Chronic) Atherosclerotic heart disease of [place] coronary artery without angina pectoris (Chronic) Hypertension (Chronic) Allergies/Adverse Reactions: Allergies diphenhydramine [From Benadryl] Adverse Reaction (Verified 01/02/20 16:37) passes out statins Adverse Reaction (Severe, Uncoded 01/02/20 14:57) Intolerance-Myalgia Home Medications: Ambulatory Orders Medication Instructions Recorded nitroglycerin 0.4 mg sublingual 0.4 mg SUBLINGUAL Q5-15M PRN 04/02/17 tablet Famotidine 20 mg PO DAILY 12/29/19 Aspirin E.C. [Ecotrin] 81 mg PO DAILY@0800 01/02/20 Atorvastatin Calcium 40 mg PO DAILY 01/02/20 Clopidogrel Bisulfate [Clopidogrel] 75 mg PO DAILY 01/02/20 Lisinopril 40 mg PO DAILY 01/02/20 Metoprolol Tartrate [Lopressor 12.5 mg PO BID 01/02/20 (beta eugenia)] - Social History SMOKING STATUS:: Former smoker Vital Signs Temp Pulse Resp BP Pulse Ox 97.8 F 88 19 H 119/87 H 94 01/05/20 14:00 01/05/20 15:00 01/05/20 15:00 01/05/20 15:00 01/05/20 15:00 Oxygen Flow Rate (L/min) 80 Oxygen Delivery Method Airvo Weight: 81.9 kg Body Mass Index (BMI) 26.0 Microbiology Past 72 Hours 01/02/20 20:20 Urine Culture - Final Urine, Clean Catch Culture exhibits no growth. 01/02/20 14:50 Blood Culture - Preliminary Blood Culture (Wb) - Right Forearm No growth in 48 hours. 01/02/20 14:45 Blood Culture - Preliminary Blood Culture (Wb) - Anticubital Left No growth in 48 hours. 01/02/20 15:06 Respiratory Panel (PCR) - Final Mucosa - Nose 01/02/20 20:20 Legionella Antigen - Final Urine, Clean Catch Streptococcus pneumoniae Antigen (M - Final 01/02/20 15:25 Influenza Types A,B Direct FA (ASHWIN) - Final Mucosa - Nose Laboratory Tests Past 24 Hrs 01/05/20 01/05/20 01/05/20 04:10 04:10 13:30 WBC 18.3 H RBC 4.25 L Hgb 12.4 L Hct 38.0 L MCV 89.4 MCH 29.2 MCHC 32.6 RDW Std Deviation 45.1 H RDW Coeff of James 13.9 Plt Count 576 H MPV 10.2 Immature Gran % (Auto) 1.500 H Neut % (Auto) 84.4 H Lymph % (Auto) 7.8 L [place] % (Auto) 6.0 Eos % (Auto) 0.1 Baso % (Auto) 0.2 Absolute Neuts (auto) 15.5 H Absolute Lymphs (auto) 1.42 Nucleated RBC % 0 Sodium 148 H Potassium 3.3 L Chloride 115 H Carbon Dioxide 26.0 Anion Gap 7 BUN 28 H Creatinine 0.99 Estim Creat Clear Calc 67.59 Est GFR (MDRD) Af Amer 95 Est GFR (MDRD) Non-Af 78 BUN/Creatinine Ratio 28.2 H Glucose 99 Calcium 8.3 L Total Bilirubin 1.00 AST 61 H ALT 61 Alkaline Phosphatase 155 H Total Protein 6.7 Albumin 2.2 L Globulin 4.5 H Albumin/Globulin Ratio 0.5 L Urine Color Yellow Urine Clarity Sl. Cloudy Urine pH 6.0 Ur Specific [place] 1.010 Urine Protein 15 H Urine Glucose (UA) Normal Urine Ketones 5 H Urine Occult Blood 250 H Urine Nitrite Negative Urine Bilirubin Negative Urine Urobilinogen 4 H Ur Leukocyte Esterase 25 H Urine RBC 25-50 SEEN Urine WBC 0-5 SEEN Ur Squamous Epith Cells 0 SEEN Urine Bacteria RARE Urine Mucus 0 SEEN - Other Studies Radiology: [] reviewed Other Studies: [] Route of nutrition/ use of supplements: [] Nutritional Intake: [] IV Site: [] Courtney Catheter: [] - Physical Exam General: Alert, Oriented x3, Cooperative HEENT: Atraumatic, PERRLA, EOMI Neck: Supple, No Nodes Lungs: Diminished Cardiovascular: Regular rate, Regular Rhythm Abdomen: Soft, Non Tender, Non-Distended Extremities: No edema Skin: No rashes - Assessment/Plan Antibiotics: [] Assessment/Plan: [] Active and Suspected Problems (Last Reviewed 06/25/18 @ 15:[address] Osmar Garcia MD) COVID-19 (Acute) Acute respiratory failure with hypoxia (Acute) Pneumonia (Acute) Severe sepsis (Acute) Improving. CT showed no PE. On dex. Given timing of 2-3 weeks of symptoms, agree with not doing remdesivir or plasma. Will stop zosyn. Cxs neg, on fever, and PCT was 0.26. Elevated d-dimer, on therapeutic lovenox. Will follow, thank you
[2020-01-05] MEDS: Atorvastatin Calcium 40 MG Tablet PO (21:17)
[2020-01-05] MEDS: Haloperidol Lactate 5 MG/ML Vial 3 MG IV (21:17)
[2020-01-05] MEDS: 0.9% Saline Lock 10 ML Syringe IV (21:25)
[2020-01-05] MEDS: Haloperidol Lactate 5 MG/ML Vial 2 MG IV (23:05)
[2020-01-06] VITALS (33 sets, daily range): BP systolic 91–170; BP diastolic 46–94; PULSE 74–120; RESP 12–30; TEMP 36.6–38.2; O2SAT 85–99
[2020-01-06] MEDS: Acetaminophen 325 MG Tablet 650 MG PO (02:39)
[2020-01-06] MEDS: Haloperidol Lactate 5 MG/ML Vial IV ×2 (03:26→10:56)
[2020-01-06] MEDS: 0.9% Saline Lock 10 ML Syringe IV (03:26)
[2020-01-06 03:35] LABS: Absolute Lymphocyte Count 0.72 X10^3/uL (0.83-4.51); Absolute Neutrophil Count 14.1 X10^3/uL (2.0-7.7); Basophil# 0.02 X10^3/uL; Basophil% 0.1 % (0-1); Eosinophil# 0.01 X10^3/uL; Eosinophils% 0.1 % (0-5); Hematocrit 35.3 % (40-54); Hemoglobin 11.4 g/dL (13.0-16.5); Lymphocyte # 0.72 X10^3/ul (4.0); Lymphocyte % 4.5 % (19-41); Mean Corp Hgb Conc 32.3 g/dL (32-36); Mean Corpuscular Hgb 29.4 pg (27.0-32.0); Monocyte# 0.68 X10^3/uL; Monocyte% 4.3 % (0-10); NRBC Flagged by Analyzer 0 % (0-5); Neutrophil # 14.13 X10^3/uL (2.7-7.7); Neutrophil % 88.9 % (47-70); Platelet Count 465 K/mm3 (150-450); RBC Distribution Width CV 13.7 % (11.6-14.6); RBC Distribution Width SD 45.8 fl (35.1-43.9); Red Blood Count 3.88 M/mm3 (4.6-6.2); White Blood Count 15.9 K/mm3 (4.4-11.0)
[2020-01-06 03:47] LABS: Anion Gap 9 (5-15); BUN 21 mg/dL (7-18); Calcium,Total 7.9 mg/dL (8.5-10.1); Chloride 112 mmol/L (98-107); Creatinine, Serum 0.84 mg/dL (0.70-1.30); EST Glomerular Filtration Rate 95 mL/min (>60); Est Glom Filt Rate - Afr Amer 115 mL/min (>60); Estimated Creatinine Clearance 79.66 ml/min; Glucose 114 mg/dL (74-106); Phosphorus 3.4 mg/dL (2.5-4.9); Potassium 3.3 mmol/L (3.5-5.1); Sodium Level 144 mmol/L (136-145)
[2020-01-06] MEDS: Enoxaparin 80 MG/0.8 ML Syringe SC ×2 (05:29→16:01)
[2020-01-06] MEDS: Metoprolol Tartrate 25 MG Tablet 12.5 MG PO ×2 (08:16→19:42)
[2020-01-06] MEDS: Lisinopril 40 MG Tablet PO (08:16)
[2020-01-06] MEDS: Aspirin E.C. 81 MG Tablet PO (08:18)
[2020-01-06] MEDS: QUEtiapine 25 MG Tablet 50 MG PO (08:18)
[2020-01-06] MEDS: Famotidine 20 MG Tablet PO (08:19)
[2020-01-06] MEDS: Clopidogrel Bisulfate 75 MG Tablet PO (08:19)
[2020-01-06] MEDS: dexAMETHasone 4 MG/ML Vial 6 MG IV (08:19)
--- NOTE | 2020-01-06 08:35 | PN_ITS ---
Subjective: Patient did okay overnight. Patient did have some agitation with desaturation. Attempts at using Haldol were intermittently successful. Patient remains confused and unable to provide much additional information this morning. General: Confused, Disoriented, - - Intermittently agitated. On BiPAP therapy resting comfortably before evaluation HEENT: Atraumatic, PERRLA, EOMI, Normocephalic, - - Scleral injection without icterus Oral: No Gingival or Mucosal Lesions/ Ulcerations, Dry Mucosa Neck: Supple, No JVD, No Nodes, Trachea Midline Lungs: No rhonchi, No rales, Diminished, Wheezes Cardiovascular: Regular rate, Regular Rhythm, Normal S1, Normal S2, No murmurs, No rub noted, No Gallop Abdomen: Bowel Sounds Present, Soft, Non Tender, Non-Distended Extremities: No clubbing, No cyanosis, No edema, Capillary Refill Less than 3 Seconds Skin: - - No change from previous Musculoskeletal: No Tenderness to Palpation of Joints or Extremities Lymphatic: No Cervical, Supraclavicular, or Inguinal Adenopathy Neurological: Cranial nerves II-XII grossly intact, Neuro grossly intact, Motor Exam 5/5 strength throughout Psych/Mental Status: Flat Affect Vital Signs Temp Pulse Resp BP Pulse Ox 37.3 C 106 H 24 H 126/55 H 90 01/06/20 03:00 01/06/20 08:16 01/06/20 07:50 01/06/20 08:16 01/06/20 07:50 Oxygen Flow Rate (L/min) 60 Oxygen Delivery Method Airvo Weight: 80.3 kg Body Mass Index (BMI) 26.0 Intake and Output for Last 24 Hours 01/04/20 01/05/20 01/06/20 23:59 23:59 23:59 Intake Total 923.5 / 923.5 2426.5 / 2426.5 500 / 500 Output Total 1000 / 1000 4475 / 4475 200 / 200 Balance -76.5 / -76.5 -2048.5 / -2048.5 300 / 300 Labs (Last 48 Hours) 01/05/20 01/05/20 01/05/20 04:10 04:10 13:30 WBC 18.3 H RBC 4.25 L Hgb 12.4 L Hct 38.0 L MCV 89.4 MCH 29.2 MCHC 32.6 RDW Std Deviation 45.1 H RDW Coeff of [place] 13.9 Plt Count 576 H MPV 10.2 Immature Gran % (Auto) 1.500 H Neut % (Auto) 84.4 H Lymph % (Auto) 7.8 L [place] % (Auto) 6.0 Eos % (Auto) 0.1 Baso % (Auto) 0.2 Absolute Neuts (auto) 15.5 H Absolute Lymphs (auto) 1.42 Nucleated RBC % 0 Sodium 148 H Potassium 3.3 L Chloride 115 H Carbon Dioxide 26.0 Anion Gap 7 BUN 28 H Creatinine 0.99 Estim Creat Clear Calc 67.59 Est GFR (MDRD) Af Amer 95 Est GFR (MDRD) Non-Af 78 BUN/Creatinine Ratio 28.2 H Glucose 99 Calcium 8.3 L Phosphorus Magnesium Total Bilirubin 1.00 AST 61 H ALT 61 Alkaline Phosphatase 155 H Total Protein 6.7 Albumin 2.2 L Globulin 4.5 H Albumin/Globulin Ratio 0.5 L Urine Color Yellow Urine Clarity Sl. Cloudy Urine pH 6.0 Ur Specific [place] 1.010 Urine Protein 15 H Urine Glucose (UA) Normal Urine Ketones 5 H Urine Occult Blood 250 H Urine Nitrite Negative Urine Bilirubin Negative Urine Urobilinogen 4 H Ur Leukocyte Esterase 25 H Urine RBC 25-50 SEEN Urine WBC 0-5 SEEN Ur Squamous Epith Cells 0 SEEN Urine Bacteria RARE Urine Mucus 0 SEEN 01/06/20 01/06/20 03:25 03:25 WBC 15.9 H RBC 3.88 L Hgb 11.4 L Hct 35.3 L MCV 91.0 MCH 29.4 MCHC 32.3 RDW Std Deviation 45.8 H RDW Coeff of [place] 13.7 Plt Count 465 H MPV 10.0 Immature Gran % (Auto) 2.100 H Neut % (Auto) 88.9 H Lymph % (Auto) 4.5 L [place] % (Auto) 4.3 Eos % (Auto) 0.1 Baso % (Auto) 0.1 Absolute Neuts (auto) 14.1 H Absolute Lymphs (auto) 0.72 L Nucleated RBC % 0 Sodium 144 Potassium 3.3 L Chloride 112 H Carbon Dioxide 23.0 Anion Gap 9 BUN 21 H Creatinine 0.84 Estim Creat Clear Calc 79.66 Est GFR (MDRD) Af Amer 115 Est GFR (MDRD) Non-Af 95 BUN/Creatinine Ratio 25.0 H Glucose 114 H Calcium 7.9 L Phosphorus 3.4 Magnesium 2.0 Total Bilirubin AST ALT Alkaline Phosphatase Total Protein Albumin Globulin Albumin/Globulin Ratio Urine Color Urine Clarity Urine pH Ur Specific [place] Urine Protein Urine Glucose (UA) Urine Ketones Urine Occult Blood Urine Nitrite Urine Bilirubin Urine Urobilinogen Ur Leukocyte Esterase Urine RBC Urine WBC Ur Squamous Epith Cells Urine Bacteria Urine Mucus Microbiology 01/02/20 20:20 Urine, Clean Catch Urine Culture - Final Culture exhibits no growth. 01/02/20 14:50 Blood Culture (Wb) - Right Forearm Blood Culture - Preliminary No growth in 48 hours. 01/02/20 14:45 Blood Culture (Wb) - Anticubital Left Blood Culture - Preliminary No growth in 48 hours. Medical Necessity - Tobacco Use Smoking Status: Former smoker Tobacco Use: Cigarettes Assessment/Plan All Active Problems (Last Reviewed 06/25/18 @ 15:[address] Osmar Garcia MD) COVID-19 (Acute) Acute respiratory failure with hypoxia (Acute) Pneumonia (Acute) Severe sepsis (Acute) Chest pain (Acute) Old non-ST elevation myocardial infarction (NSTEMI) (Resolved) RECOMMENDATIONS: 1. Attempt Airvo during the day, possibly BiPAP with sleep. Wean FiO2 as tolerated to maintain saturations at or above 90%. 2. Delirium protocol. Initiate Seroquel twice daily 3. Complete Decadron 6 mg daily x10 days, therapeutic Lovenox and empiric antimicrobials. 4. Potassium repletion as indicated. 5. Possible ABG pending clinical status IMPRESSIONS: 1. Acute hypoxemic respiratory failure Patient appears to be improving. Patient has tested positive for COVID- 19, but appears to be responding to therapy. Patient is currently on therapeutic anticoagulation, Decadron and supplemental oxygen. Patient currently on BiPAP therapy. Clinical suspicion for an element of decompensation secondary to poor respiratory mechanics associated with agitation. Patient likely has an element of delirium secondary to steroids, urinary retention and acute hypoxia. This complicates respiratory management. Patient is a full code. Will obtain an ABG if patient becomes less responsive to see if intubation is necessary. 2. Acute kidney injury Improving. Likely prerenal in etiology. We will continue to monitor urine output. No current indication for renal replacement therapy. Electrolyte repletion as indicated. 3. Indeterminate troponin/history of coronary artery disease status post PCI Suspect secondary to demand ischemia in the setting of #1. Continue current supportive measures along with outpatient medication regimen. Patient is on therapeutic anticoagulation secondary to #1. 4. Hypertension/hyperlipidemia/GERD/advanced age Complicates care, management, recovery and prognosis. Continue home medications as indicated. Patient may require increase in antihypertensive medications. This may be secondary to Decadron complications. 5. Urinary retention Patient bladder scanned for over 1000 cc of urine. Courtney has been placed with improvement in abdominal exam. Will monitor renal function as this could lead to postobstructive uropathy. Await urine studies, but UA is not suggestive of an acute infection 6. Metabolic encephalopathy/delirium Multiple risk factors including severity of illness, steroids, ICU admission, hypoxia and hypokalemia. Initiate delirium protocol. Start patient on Seroquel p.o. TIME: 33 minutes of critical care time, independent of procedures, was spent addressing the patient's acute hypoxemic respiratory failure, acute kidney injury, indeterminate troponin, review of all data and collaboration with the care team. (7:15 AM to 8:15 AM) [id number]: [id number] Critical care first hour
--- NOTE | 2020-01-06 09:24 | PN_ITS ---
Patient Problems: Active and Suspected Problems (Last Reviewed 06/25/18 @ 15:[address] Osmar Garcia MD) COVID-19 (Acute) Acute respiratory failure with hypoxia (Acute) Pneumonia (Acute) Severe sepsis (Acute) Subjective: Still confused, complaining of a dry mouth. He had to be placed back on BiPAP, he is also been agitated and was started on Seroquel by the basket machine operator. Vitals/I&O's: Vital Signs Temp Pulse Resp BP Pulse Ox 99.1 F 106 H 24 H 126/55 H 90 01/06/20 03:00 01/06/20 08:16 01/06/20 07:50 01/06/20 08:16 01/06/20 07:50 Oxygen Flow Rate (L/min) 60 Oxygen Delivery Method Airvo Weight: 177 lb 0.499 oz Body Mass Index (BMI) 26.0 Intake and Output for Last 24 Hours 01/04/20 01/05/20 01/06/20 23:59 23:59 23:59 Intake Total 923.5 / 923.5 2426.5 / 2426.5 500 / 500 Output Total 1000 / 1000 4475 / 4475 200 / 200 Balance -76.5 / -76.5 -2048.5 / -2048.5 300 / 300 General: Alert, disoriented, Cooperative, No apparent distress HEENT: Atraumatic, PERRLA, EOMI, Normocephalic Oral: Dry Mucosa Neck: Supple, No JVD Lungs: Normal air movement, No rhonchi, No wheeze, No rales, Diminished Cardiovascular: Regular rate, Regular Rhythm, Normal S1, Normal S2, No murmurs Abdomen: Soft, Non Tender, Non-Distended, No Hepato-splenomegaly Extremities: No edema, Capillary Refill Less than 3 Seconds Skin: No rashes, No breakdown Neurological: Neuro grossly intact, Sensory exam intact to light touch and pain Psych/Mental Status: Normal Affect, Appropriate Microbiology Past 72 Hours 01/02/20 20:20 Urine, Clean Catch Urine Culture - Final Culture exhibits no growth. 01/02/20 14:50 Blood Culture (Wb) - Right Forearm Blood Culture - Preliminary No growth in 48 hours. 01/02/20 14:45 Blood Culture (Wb) - Anticubital Left Blood Culture - Preliminary No growth in 48 hours. 01/02/20 15:06 Mucosa - Nose Respiratory Panel (PCR) - Final Laboratory Results 01/05/20 13:30: Urine Color Yellow, Urine Clarity Sl. Cloudy, Urine pH 6.0, Ur Specific [place] 1.010, Urine Protein 15 H, Urine Glucose (UA) Normal, Urine Ketones 5 H, Urine Occult Blood 250 H, Urine Nitrite Negative, Urine Bilirubin Negative, Urine Urobilinogen 4 H, Ur Leukocyte Esterase 25 H, Urine RBC 25-50 SEEN, Urine WBC 0-5 SEEN, Ur Squamous Epith Cells 0 SEEN, Urine Bacteria RARE, Urine Mucus 0 SEEN 01/06/20 03:25: WBC 15.9 H, RBC 3.88 L, Hgb 11.4 L, Hct 35.3 L, MCV 91.0, MCH 29.4, MCHC 32.3, RDW Std Deviation 45.8 H, RDW Coeff of [place] 13.7, Plt Count 465 H, MPV 10.0, Immature Gran % (Auto) 2.100 H, Neut % (Auto) 88.9 H, Lymph % (Auto) 4.5 L, [place] % (Auto) 4.3, Eos % (Auto) 0.1, Baso % (Auto) 0.1, Absolute Neuts (auto) 14.1 H, Absolute Lymphs (auto) 0.72 L, Nucleated RBC % 0 01/06/20 03:25: Sodium 144, Potassium 3.3 L, Chloride 112 H, Carbon Dioxide 23.0, Anion Gap 9, BUN 21 H, Creatinine 0.84, Estim Creat Clear Calc 79.66, Est GFR (MDRD) Af Amer 115, Est GFR (MDRD) Non-Af 95, BUN/Creatinine Ratio 25.0 H, Glucose 114 H, Calcium 7.9 L, Phosphorus 3.4, Magnesium 2.0 Current Medications Acetaminophen (Acetaminophen 325 Mg Tablet) 650 mg PO Q6H PRN PRN PRN Reason: Pain Score 1-10/Temp > 100.7 F Last Admin: 01/06/20 02:39 Dose: 650 mg Documented by: Al Hydroxide/Mg Hydroxide (Mag Hydrox/Al Hydrox/Simeth 30 Ml Udc) 30 ml PO Q6H PRN PRN PRN Reason: Gastric Burning Albuterol Sulfate (Albuterol 2.5 Mg/3 Ml Vial.Neb.) 2.5 mg INHALATION Q2H PRN PRN PRN Reason: Dyspnea, wheezing Aspirin (Aspirin E.C. 81 Mg Tablet) 81 mg PO DAILY [facility] Last Admin: 01/06/20 08:18 Dose: 81 mg Documented by: Atorvastatin Calcium (Atorvastatin Calcium 40 Mg Tablet) 40 mg PO QHS [facility] Last Admin: 01/05/20 21:17 Dose: 40 mg Documented by: Clopidogrel Bisulfate (Clopidogrel Bisulfate 75 Mg Tablet) 75 mg PO DAILY [facility] Last Admin: 01/06/20 08:19 Dose: 75 mg Documented by: Dexamethasone Sodium Phosphate (Dexamethasone 4 Mg/Ml Vial) 6 mg IV Q24 [facility] Stop: 01/11/20 10:01 Last Admin: 01/06/20 08:19 Dose: 6 mg Documented by: Enoxaparin Sodium (Enoxaparin 80 Mg/0.8 Ml Syringe) 80 mg SC Q12@0600,1800 [facility] Last Admin: 01/06/20 05:29 Dose: 80 mg Documented by: Famotidine (Famotidine 20 Mg Tablet) 20 mg PO DAILY [facility] Last Admin: 01/06/20 08:19 Dose: 20 mg Documented by: Guaifenesin (Guaifenesin 10 Ml Udc (200mg/10ml)) 10 ml PO Q4H PRN PRN PRN Reason: COUGH Haloperidol Lactate (Haloperidol Lactate 5 Mg/Ml Vial) 5 mg IV Q4H PRN PRN PRN Reason: AGITATION Last Admin: 01/06/20 03:26 Dose: 5 mg Documented by: Sodium Chloride () 250 mls @ 15 mls/hr IV .[id number] PRN PRN Reason: Saline Flush Sodium Chloride () 250 mls @ 15 mls/hr IV .[id number] PRN PRN Reason: Additional IVPB Infusion Last Infusion: 01/05/20 21:00 Dose: Infused Documented by: Lisinopril (Lisinopril 40 Mg Tablet) 40 mg PO DAILY [facility] Last Admin: 01/06/20 08:16 Dose: 40 mg Documented by: Metoprolol Tartrate (Metoprolol Tartrate 25 Mg Tablet) 12.5 mg PO BID [facility] Last Admin: 01/06/20 08:16 Dose: 12.5 mg Documented by: Nitroglycerin (Nitroglycerin (Inpatient Use) 0.4 Mg Tab.Subl) 0.4 mg SUBLINGUAL Q5M PRN PRN Reason: CARDIAC/CHEST PAIN Ondansetron HCl (Ondansetron 4 Mg/2 Ml Vial) 4 mg IV Q8H PRN PRN PRN Reason: NAUSEA/VOMITING Prochlorperazine Edisylate (Prochlorperazine 10 Mg/2 Ml Vial) 5 mg IV Q4H PRN PRN PRN Reason: Breakthrough Nausea/Vomiting Quetiapine Fumarate (Quetiapine 25 Mg Tablet) 50 mg PO BID [facility] Last Admin: 01/06/20 08:18 Dose: 50 mg Documented by: Sodium Chloride (0.9% Saline Lock 10 Ml Syringe) 10 - 40 ml IV UD PRN PRN Reason: SALINE FLUSH Last Admin: 01/06/20 03:26 Dose: 20 ml Documented by: Throat Lozenges (Benzocaine/Menthol 1 Lozenge) 1 lozenge MUCOUS MEM Q2H PRN PRN PRN Reason: SORE THROAT STROKE Vital Signs/Narrative: Vital Signs Pulse Resp BP BP Pulse Ox 01/06/20 08:16 106 H 126/55 H 01/06/20 07:50 79 24 H 90 01/06/20 07:37 90 25 H 112/75 89 01/06/20 06:00 75 24 H 92/58 L 94 Medical Necessity - Tobacco Use Smoking Status: Former smoker Tobacco Use: Cigarettes Assessment/Plan All Active Problems (Last Reviewed 06/25/18 @ 15:[address] Osmar Garcia MD) COVID-19 (Acute) Acute respiratory failure with hypoxia (Acute) Pneumonia (Acute) Severe sepsis (Acute) Chest pain (Acute) Old non-ST elevation myocardial infarction (NSTEMI) (Resolved) 1. Acute severe sepsis secondary acute hypoxic respiratory failure secondary to COVID-19 pneumonia/metabolic encephalopathy versus delirium -He was diagnosed with Covid almost 2 weeks ago and just completed his quarantine when he became more dyspneic and hypoxic. -Had to restart BiPAP -Continue with Decadron, he is too far out for remdesivir convalescent plasma -He did have an elevated D-dimer despite a CTA being negative for PE, continue with therapeutic Lovenox -Troponin is slightly elevated likely secondary to demand ischemia he does have a history of coronary artery disease -Continue him on Seroquel 2. CKD 3 with renal insufficiency -Reading has returned to baseline -We will continue to monitor 3. CAD status post stent/HTN/HLD/indeterminant troponin -He is on aspirin and Plavix -Continue with his statin as well as his lisinopril and metoprolol -Upon is likely secondary to demand ischemia from his acute hypoxic respiratory failure. 4. GERD -Stable -Continue with PPI 5. Urinary retention -He is bladder scanned for over 1000 cc, he had to have a Courtney placed -We will monitor renal function DVT: Therapeutic Lovenox Inpatient E&M: [id number] Subs Hosp L2
--- NOTE | 2020-01-06 15:08 | PCM.PN.ID ---
Patient Problems: Active and Suspected Problems (Last Reviewed 06/25/18 @ 15:[address] Osmar Garcia MD) COVID-19 (Acute) Acute respiratory failure with hypoxia (Acute) Pneumonia (Acute) Severe sepsis (Acute) Subjective: Feeling a little better, no fever, no n/v/d. Some cough. - Physical Exam Vitals/I&O's: Vital Signs Temp Pulse Resp BP Pulse Ox 98.2 F 90 25 H 154/82 H 93 01/06/20 12:00 01/06/20 14:48 01/06/20 14:48 01/06/20 13:00 01/06/20 14:48 Oxygen Flow Rate (L/min) 60 Oxygen Delivery Method Airvo Weight: 80.3 kg Body Mass Index (BMI) 26.0 Intake and Output for Last 24 Hours 01/04/20 01/05/20 01/06/20 23:59 23:59 23:59 Intake Total 923.5 / 923.5 2426.5 / 2426.5 740 / 740 Output Total 1000 / 1000 4475 / 4475 400 / 400 Balance -76.5 / -76.5 -2048.5 / -2048.5 340 / 340 General: Alert, Cooperative, No apparent distress Lungs: Clear to auscultation, Diminished Cardiovascular: Regular rate, Regular Rhythm Abdomen: Soft, Non Tender, Non-Distended Skin: No rashes Microbiology Past 72 Hours 01/05/20 13:30 Urine Catheter - Courtney Urine Culture - Preliminary Culture exhibits no growth. 01/02/20 20:20 Urine, Clean Catch Urine Culture - Final Culture exhibits no growth. 01/02/20 14:50 Blood Culture (Wb) - Right Forearm Blood Culture - Preliminary No growth in 48 hours. 01/02/20 14:45 Blood Culture (Wb) - Anticubital Left Blood Culture - Preliminary No growth in 48 hours. Laboratory Results 01/06/20 03:25: WBC 15.9 H, RBC 3.88 L, Hgb 11.4 L, Hct 35.3 L, MCV 91.0, MCH 29.4, MCHC 32.3, RDW Std Deviation 45.8 H, RDW Coeff of James 13.7, Plt Count 465 H, MPV 10.0, Immature Gran % (Auto) 2.100 H, Neut % (Auto) 88.9 H, Lymph % (Auto) 4.5 L, [place] % (Auto) 4.3, Eos % (Auto) 0.1, Baso % (Auto) 0.1, Absolute Neuts (auto) 14.1 H, Absolute Lymphs (auto) 0.72 L, Nucleated RBC % 0 01/06/20 03:25: Sodium 144, Potassium 3.3 L, Chloride 112 H, Carbon Dioxide 23.0, Anion Gap 9, BUN 21 H, Creatinine 0.84, Estim Creat Clear Calc 79.66, Est GFR (MDRD) Af Amer 115, Est GFR (MDRD) Non-Af 95, BUN/Creatinine Ratio 25.0 H, Glucose 114 H, Calcium 7.9 L, Phosphorus 3.4, Magnesium 2.0 Current Medications Acetaminophen (Acetaminophen 325 Mg Tablet) 650 mg PO Q6H PRN PRN PRN Reason: Pain Score 1-10/Temp > 100.7 F Last Admin: 01/06/20 02:39 Dose: 650 mg Documented by: Al Hydroxide/Mg Hydroxide (Mag Hydrox/Al Hydrox/Simeth 30 Ml Udc) 30 ml PO Q6H PRN PRN PRN Reason: Gastric Burning Albuterol Sulfate (Albuterol 2.5 Mg/3 Ml Vial.Neb.) 2.5 mg INHALATION Q2H PRN PRN PRN Reason: Dyspnea, wheezing Aspirin (Aspirin E.C. 81 Mg Tablet) 81 mg PO DAILY [facility] Last Admin: 01/06/20 08:18 Dose: 81 mg Documented by: Atorvastatin Calcium (Atorvastatin Calcium 40 Mg Tablet) 40 mg PO QHS [facility] Last Admin: 01/05/20 21:17 Dose: 40 mg Documented by: Clopidogrel Bisulfate (Clopidogrel Bisulfate 75 Mg Tablet) 75 mg PO DAILY [facility] Last Admin: 01/06/20 08:19 Dose: 75 mg Documented by: Dexamethasone Sodium Phosphate (Dexamethasone 4 Mg/Ml Vial) 6 mg IV Q24 [facility] Stop: 01/11/20 10:01 Last Admin: 01/06/20 08:19 Dose: 6 mg Documented by: Enoxaparin Sodium (Enoxaparin 80 Mg/0.8 Ml Syringe) 80 mg SC Q12@0600,1800 [facility] Last Admin: 01/06/20 05:29 Dose: 80 mg Documented by: Famotidine (Famotidine 20 Mg Tablet) 20 mg PO DAILY [facility] Last Admin: 01/06/20 08:19 Dose: 20 mg Documented by: Guaifenesin (Guaifenesin 10 Ml Udc (200mg/10ml)) 10 ml PO Q4H PRN PRN PRN Reason: COUGH Haloperidol Lactate (Haloperidol Lactate 5 Mg/Ml Vial) 5 mg IV Q4H PRN PRN PRN Reason: AGITATION Last Admin: 01/06/20 10:56 Dose: 5 mg Documented by: Sodium Chloride () 250 mls @ 15 mls/hr IV .[id number] PRN PRN Reason: Saline Flush Sodium Chloride () 250 mls @ 15 mls/hr IV .[id number] PRN PRN Reason: Additional IVPB Infusion Last Infusion: 01/05/20 21:00 Dose: Infused Documented by: Lisinopril (Lisinopril 40 Mg Tablet) 40 mg PO DAILY [facility] Last Admin: 01/06/20 08:16 Dose: 40 mg Documented by: Metoprolol Tartrate (Metoprolol Tartrate 25 Mg Tablet) 12.5 mg PO BID [facility] Last Admin: 01/06/20 08:16 Dose: 12.5 mg Documented by: Nitroglycerin (Nitroglycerin (Inpatient Use) 0.4 Mg Tab.Subl) 0.4 mg SUBLINGUAL Q5M PRN PRN Reason: CARDIAC/CHEST PAIN Ondansetron HCl (Ondansetron 4 Mg/2 Ml Vial) 4 mg IV Q8H PRN PRN PRN Reason: NAUSEA/VOMITING Prochlorperazine Edisylate (Prochlorperazine 10 Mg/2 Ml Vial) 5 mg IV Q4H PRN PRN PRN Reason: Breakthrough Nausea/Vomiting Quetiapine Fumarate (Quetiapine 25 Mg Tablet) 50 mg PO BID [facility] Last Admin: 01/06/20 08:18 Dose: 50 mg Documented by: Sodium Chloride (0.9% Saline Lock 10 Ml Syringe) 10 - 40 ml IV UD PRN PRN Reason: SALINE FLUSH Last Admin: 01/06/20 03:26 Dose: 20 ml Documented by: Throat Lozenges (Benzocaine/Menthol 1 Lozenge) 1 lozenge MUCOUS MEM Q2H PRN PRN PRN Reason: SORE THROAT Medical Necessity - Tobacco Use Smoking Status: Former smoker Tobacco Use: Cigarettes Route of nutrition/ use of supplements: [] Nutritional Intake: [] IV Site: [] Courtney Catheter: [] - Assessment/Plan Antibiotics: [] Assessment/Plan: [] Active and Suspected Problems (Last Reviewed 06/25/18 @ 15:[address] Osmar Garcia MD) COVID-19 (Acute) Acute respiratory failure with hypoxia (Acute) Pneumonia (Acute) Severe sepsis (Acute) Improving. CT showed no PE. On dex. Given timing of 2-3 weeks of symptoms, agree with not doing remdesivir or plasma. Will stop zosyn. Cxs neg, on fever, and PCT was 0.26. Elevated d-dimer, on therapeutic lovenox. Will follow
[2020-01-06] MEDS: LORazepam 1 MG Tablet PO (16:01)
[2020-01-06] MEDS: QUEtiapine 100 MG Tablet PO (19:42)
[2020-01-06] MEDS: Atorvastatin Calcium 40 MG Tablet PO (19:42)
[2020-01-07] VITALS (36 sets, daily range): BP systolic 83–145; BP diastolic 44–110; PULSE 25–115; RESP 12–67; TEMP 36.4–38.4; O2SAT 90–97; BMI 25.1
[2020-01-07 04:16] LABS: Absolute Neutrophil Count 17.7 X10^3/uL (2.0-7.7); Basophil# 0.04 X10^3/uL; Basophil% 0.2 % (0-1); Eosinophil# 0.05 X10^3/uL; Eosinophils% 0.3 % (0-5); Hematocrit 40.3 % (40-54); Hemoglobin 12.9 g/dL (13.0-16.5); Mean Corpuscular Hgb 29.5 pg (27.0-32.0); Mean Corpuscular Volume 92.2 fL (80-94); Mean Platelet Vol. 10.2 fl (6.2-12.0); Monocyte# 0.51 X10^3/uL; Monocyte% 2.6 % (0-10); NRBC Flagged by Analyzer 0 % (0-5); Neutrophil # 17.68 X10^3/uL (2.7-7.7); Neutrophil % 88.9 % (47-70); Platelet Count 487 K/mm3 (150-450); RBC Distribution Width CV 13.7 % (11.6-14.6); RBC Distribution Width SD 46.8 fl (35.1-43.9); Red Blood Count 4.37 M/mm3 (4.6-6.2); White Blood Count 19.9 K/mm3 (4.4-11.0)
[2020-01-07 04:28] LABS: Anion Gap 8 (5-15); BUN 21 mg/dL (7-18); BUN/Creat Ratio 19.3 RATIO (10-20); Calcium,Total 8.7 mg/dL (8.5-10.1); Chloride 113 mmol/L (98-107); Creatinine, Serum 1.09 mg/dL (0.70-1.30); EST Glomerular Filtration Rate 70 mL/min (>60); Est Glom Filt Rate - Afr Amer 85 mL/min (>60); Estimated Creatinine Clearance 61.39 ml/min; Glucose 101 mg/dL (74-106); Potassium 3.9 mmol/L (3.5-5.1); Sodium Level 145 mmol/L (136-145)
[2020-01-07] MEDS: Enoxaparin 80 MG/0.8 ML Syringe SC ×2 (05:44→17:52)
[2020-01-07] MEDS: Acetaminophen 325 MG Tablet 650 MG PO (05:47)
--- NOTE | 2020-01-07 10:11 | PN_ITS ---
Subjective: Patient was significant issues overnight. Patient becomes agitated and pulls off BiPAP leading to significant desaturation. Patient has been given some sedation and apparently responded well to 1 mg of p.o. Ativan initially. Patient remains confused and is unable to provide any additional symptomatology. Patient does appear to be following commands better today than yesterday. General: Alert, Confused, Disoriented, - - Impulsive. Thin build. HEENT: Atraumatic, PERRLA, EOMI, Normocephalic, - - No scleral icterus or injection noted Oral: No Gingival or Mucosal Lesions/ Ulcerations, Dry Mucosa Neck: Supple, No JVD, No Nodes, Trachea Midline Lungs: No rhonchi, No wheeze, No rales, Diminished, - - Fair effort. Symmetric expansion. Cardiovascular: Normal S1, Normal S2, No murmurs, No rub noted, No Gallop, Tachycardic Abdomen: Bowel Sounds Present, Soft, Non Tender, Non-Distended Extremities: No clubbing, No cyanosis, No edema, Capillary Refill Less than 3 Seconds Skin: - - No change compared to previous Musculoskeletal: No Tenderness to Palpation of Joints or Extremities Lymphatic: No Cervical, Supraclavicular, or Inguinal Adenopathy Neurological: Cranial nerves II-XII grossly intact, Neuro grossly intact, Motor Exam 5/5 strength throughout Psych/Mental Status: Impulsive, Restless Vital Signs Temp Pulse Resp BP Pulse Ox 38.4 C H 115 H 27 H 118/68 96 01/07/20 06:00 01/07/20 08:00 01/07/20 07:32 01/07/20 06:00 01/07/20 07:32 Oxygen Flow Rate (L/min) 60 Oxygen Delivery Method Bi-pap Weight: 79.5 kg Body Mass Index (BMI) 26.0 Intake and Output for Last 24 Hours 01/05/20 01/06/20 01/07/20 23:59 23:59 23:59 Intake Total 2426.5 / 2426.5 1140 / 1140 Output Total 4475 / 4475 750 / 785 160 / 160 Balance -2048.5 / -2048.5 390 / 355 -160 / -160 Labs (Last 48 Hours) 01/05/20 01/06/20 01/06/20 13:30 03:25 03:25 WBC 15.9 H RBC 3.88 L Hgb 11.4 L Hct 35.3 L MCV 91.0 MCH 29.4 MCHC 32.3 RDW Std Deviation 45.8 H RDW Coeff of James 13.7 Plt Count 465 H MPV 10.0 Immature Gran % (Auto) 2.100 H Neut % (Auto) 88.9 H Lymph % (Auto) 4.5 L [place] % (Auto) 4.3 Eos % (Auto) 0.1 Baso % (Auto) 0.1 Absolute Neuts (auto) 14.1 H Absolute Lymphs (auto) 0.72 L Nucleated RBC % 0 Sodium 144 Potassium 3.3 L Chloride 112 H Carbon Dioxide 23.0 Anion Gap 9 BUN 21 H Creatinine 0.84 Estim Creat Clear Calc 79.66 Est GFR (MDRD) Af Amer 115 Est GFR (MDRD) Non-Af 95 BUN/Creatinine Ratio 25.0 H Glucose 114 H Calcium 7.9 L Phosphorus 3.4 Magnesium 2.0 Urine Color Yellow Urine Clarity Sl. Cloudy Urine pH 6.0 Ur Specific [place] 1.010 Urine Protein 15 H Urine Glucose (UA) Normal Urine Ketones 5 H Urine Occult Blood 250 H Urine Nitrite Negative Urine Bilirubin Negative Urine Urobilinogen 4 H Ur Leukocyte Esterase 25 H Urine RBC 25-50 SEEN Urine WBC 0-5 SEEN Ur Squamous Epith Cells 0 SEEN Urine Bacteria RARE Urine Mucus 0 SEEN 01/07/20 01/07/20 04:05 04:05 WBC 19.9 H RBC 4.37 L Hgb 12.9 L Hct 40.3 MCV 92.2 MCH 29.5 MCHC 32.0 RDW Std Deviation 46.8 H RDW Coeff of James 13.7 Plt Count 487 H MPV 10.2 Immature Gran % (Auto) 2.000 H Neut % (Auto) 88.9 H Lymph % (Auto) 6.0 L [place] % (Auto) 2.6 Eos % (Auto) 0.3 Baso % (Auto) 0.2 Absolute Neuts (auto) 17.7 H Absolute Lymphs (auto) 1.20 Nucleated RBC % 0 Sodium 145 Potassium 3.9 Chloride 113 H Carbon Dioxide 24.0 Anion Gap 8 BUN 21 H Creatinine 1.09 Estim Creat Clear Calc 61.39 Est GFR (MDRD) Af Amer 85 Est GFR (MDRD) Non-Af 70 BUN/Creatinine Ratio 19.3 Glucose 101 Calcium 8.7 Phosphorus Magnesium Urine Color Urine Clarity Urine pH Ur Specific [place] Urine Protein Urine Glucose (UA) Urine Ketones Urine Occult Blood Urine Nitrite Urine Bilirubin Urine Urobilinogen Ur Leukocyte Esterase Urine RBC Urine WBC Ur Squamous Epith Cells Urine Bacteria Urine Mucus Microbiology 01/05/20 13:30 Urine Catheter - Courtney Urine Culture - Preliminary Culture exhibits no growth. 01/02/20 20:20 Urine, Clean Catch Urine Culture - Final Culture exhibits no growth. Medical Necessity - Tobacco Use Smoking Status: Former smoker Tobacco Use: Cigarettes Assessment/Plan All Active Problems (Last Reviewed 06/25/18 @ 15:[address] Osmar Garcia MD) COVID-19 (Acute) Acute respiratory failure with hypoxia (Acute) Pneumonia (Acute) Severe sepsis (Acute) Chest pain (Acute) Old non-ST elevation myocardial infarction (NSTEMI) (Resolved) RECOMMENDATIONS: 1. Attempt Airvo during the day, possibly BiPAP with sleep. Wean FiO2 as tolerated to maintain saturations at or above 90%. 2. Delirium protocol. DC Haldol and Seroquel. Initiate Precedex drip 3. Complete Decadron 6 mg daily x10 days, therapeutic Lovenox and empiric antimicrobials. 4. Potassium repletion as indicated. 5. Possible intubation later today pending response to Precedex IMPRESSIONS: 1. Acute hypoxemic respiratory failure Patient appears to be improving. Patient has tested positive for COVID- 19, but appears to be responding to therapy. Patient is currently on therapeutic anticoagulation, Decadron and supplemental oxygen. Patient currently on BiPAP therapy. Clinical suspicion for an element of decompensation secondary to poor respiratory mechanics associated with agitation. Patient appears to be doing well when he can keep his BiPAP in place. Will attempt using a Precedex drip. If patient continues to have frequent attempts at removing BiPAP, may need to proceed with intubation. Patient is a full code. Will obtain an ABG if patient becomes less responsive to see if intubation is necessary. 2. Acute kidney injury Stable. Likely prerenal in etiology. We will continue to monitor urine output. No current indication for renal replacement therapy. Electrolyte repletion as indicated. 3. Indeterminate troponin/history of coronary artery disease status post PCI Suspect secondary to demand ischemia in the setting of #1. Continue current supportive measures along with outpatient medication regimen. Patient is on therapeutic anticoagulation secondary to #1. 4. Hypertension/hyperlipidemia/GERD/advanced age Complicates care, management, recovery and prognosis. Continue home medications as indicated. This may be secondary to Decadron complications. 5. Urinary retention Patient bladder scanned for over 1000 cc of urine. Courtney has been placed with improvement in abdominal exam. Will monitor renal function as this could lead to postobstructive uropathy. Urine studies are not suggestive of an acute infection. Patient may develop fever associated with Precedex therapy. Continue to monitor 6. Metabolic encephalopathy/delirium Multiple risk factors including severity of illness, steroids, ICU admission, hypoxia and hypokalemia. Continue delirium protocol. Initiate Precedex therapy TIME: 36 minutes of critical care time, independent of procedures, was spent addressing the patient's acute hypoxemic respiratory failure, acute kidney injury, indeterminate troponin, review of all data and collaboration with the care team. (9 AM to 10 AM) [id number] Critical care first hour
[2020-01-07] MEDS: Famotidine 20 MG Tablet PO (10:58)
[2020-01-07] MEDS: Clopidogrel Bisulfate 75 MG Tablet PO (10:58)
[2020-01-07] MEDS: dexAMETHasone 4 MG/ML Vial 6 MG IV (10:58)
[2020-01-07] MEDS: Aspirin E.C. 81 MG Tablet PO (10:58)
[2020-01-07] MEDS: Metoprolol Tartrate 25 MG Tablet 12.5 MG PO (10:58)
[2020-01-07] MEDS: Lisinopril 40 MG Tablet PO (10:59)
--- NOTE | 2020-01-07 11:10 | PN_ITS ---
Patient Problems: Active and Suspected Problems (Last Reviewed 06/25/18 @ 15:[address] Osmar Garcia MD) COVID-19 (Acute) Acute respiratory failure with hypoxia (Acute) Pneumonia (Acute) Severe sepsis (Acute) Subjective: Became more restless overnight and did take off his mask and desaturated. He does get some Ativan which she responded well to. Vitals/I&O's: Vital Signs Temp Pulse Resp BP Pulse Ox 101.1 F H 77 25 H 118/68 94 01/07/20 06:00 01/07/20 10:58 01/07/20 09:23 01/07/20 06:00 01/07/20 09:23 Oxygen Flow Rate (L/min) 60 Oxygen Delivery Method Bi-pap Weight: 175 lb 4.28 oz Body Mass Index (BMI) 26.0 Intake and Output for Last 24 Hours 01/05/20 01/06/20 01/07/20 23:59 23:59 23:59 Intake Total 2426.5 / 2426.5 1140 / 1140 Output Total 4475 / 4475 750 / 785 160 / 160 Balance -2048.5 / -2048.5 390 / 355 -160 / -160 General: Alert, disoriented, Cooperative, No apparent distress HEENT: Atraumatic, PERRLA, EOMI, Normocephalic Oral: Dry Mucosa Neck: Supple, No JVD Lungs: Normal air movement, No rhonchi, No wheeze, No rales, Diminished Cardiovascular: Regular rate, Regular Rhythm, Normal S1, Normal S2, No murmurs Abdomen: Soft, Non Tender, Non-Distended, No Hepato-splenomegaly Extremities: No edema, Capillary Refill Less than 3 Seconds Skin: No rashes, No breakdown Neurological: Neuro grossly intact, Sensory exam intact to light touch and pain Psych/Mental Status: Restless Microbiology Past 72 Hours 01/05/20 13:30 Urine Catheter - Courtney Urine Culture - Preliminary Culture exhibits no growth. 01/02/20 20:20 Urine, Clean Catch Urine Culture - Final Culture exhibits no growth. 01/02/20 14:50 Blood Culture (Wb) - Right Forearm Blood Culture - Preliminary No growth in 48 hours. 01/02/20 14:45 Blood Culture (Wb) - Anticubital Left Blood Culture - Preliminary No growth in 48 hours. Laboratory Results 01/07/20 04:05: WBC 19.9 H, RBC 4.37 L, Hgb 12.9 L, Hct 40.3, MCV 92.2, MCH 29.5, MCHC 32.0, RDW Std Deviation 46.8 H, RDW Coeff of James 13.7, Plt Count 487 H, MPV 10.2, Immature Gran % (Auto) 2.000 H, Neut % (Auto) 88.9 H, Lymph % (Auto) 6.0 L, [place] % (Auto) 2.6, Eos % (Auto) 0.3, Baso % (Auto) 0.2, Absolute Neuts (auto) 17.7 H, Absolute Lymphs (auto) 1.20, Nucleated RBC % 0 01/07/20 04:05: Sodium 145, Potassium 3.9, Chloride 113 H, Carbon Dioxide 24.0, Anion Gap 8, BUN 21 H, Creatinine 1.09, Estim Creat Clear Calc 61.39, Est GFR (MDRD) Af Amer 85, Est GFR (MDRD) Non-Af 70, BUN/Creatinine Ratio 19.3, Glucose 101, Calcium 8.7 Current Medications Acetaminophen (Acetaminophen 325 Mg Tablet) 650 mg PO Q6H PRN PRN PRN Reason: Pain Score 1-10/Temp > 100.7 F Last Admin: 01/07/20 05:47 Dose: 650 mg Documented by: Al Hydroxide/Mg Hydroxide (Mag Hydrox/Al Hydrox/Simeth 30 Ml Udc) 30 ml PO Q6H PRN PRN PRN Reason: Gastric Burning Albuterol Sulfate (Albuterol 2.5 Mg/3 Ml Vial.Neb.) 2.5 mg INHALATION Q2H PRN PRN PRN Reason: Dyspnea, wheezing Aspirin (Aspirin E.C. 81 Mg Tablet) 81 mg PO DAILY [facility] Last Admin: 01/07/20 10:58 Dose: 81 mg Documented by: Atorvastatin Calcium (Atorvastatin Calcium 40 Mg Tablet) 40 mg PO QHS [facility] Last Admin: 01/06/20 19:42 Dose: 40 mg Documented by: Clopidogrel Bisulfate (Clopidogrel Bisulfate 75 Mg Tablet) 75 mg PO DAILY [facility] Last Admin: 01/07/20 10:58 Dose: 75 mg Documented by: Dexamethasone Sodium Phosphate (Dexamethasone 4 Mg/Ml Vial) 6 mg IV Q24 [facility] Stop: 01/11/20 10:01 Last Admin: 01/07/20 10:58 Dose: 6 mg Documented by: Enoxaparin Sodium (Enoxaparin 80 Mg/0.8 Ml Syringe) 80 mg SC Q12@0600,1800 [facility] Last Admin: 01/07/20 05:44 Dose: 80 mg Documented by: Famotidine (Famotidine 20 Mg Tablet) 20 mg PO DAILY [facility] Last Admin: 01/07/20 10:58 Dose: 20 mg Documented by: Guaifenesin (Guaifenesin 10 Ml Udc (200mg/10ml)) 10 ml PO Q4H PRN PRN PRN Reason: COUGH Sodium Chloride () 250 mls @ 15 mls/hr IV .[id number] PRN PRN Reason: Saline Flush Sodium Chloride () 250 mls @ 15 mls/hr IV .[id number] PRN PRN Reason: Additional IVPB Infusion Last Infusion: 01/05/20 21:00 Dose: Infused Documented by: Dexmedetomidine HCl 400 mcg/ (Sodium Chloride) 100 mls @ 9.938 mls/hr CONT INF .Q10H4M [facility]; Protocol Last Admin: 01/07/20 10:57 Dose: 0.5 mcg/kg/hr, 9.9 mls/hr Documented by: Lisinopril (Lisinopril 40 Mg Tablet) 40 mg PO DAILY [facility] Last Admin: 01/07/20 10:59 Dose: 40 mg Documented by: Metoprolol Tartrate (Metoprolol Tartrate 25 Mg Tablet) 12.5 mg PO BID [facility] Last Admin: 01/07/20 10:58 Dose: 12.5 mg Documented by: Nitroglycerin (Nitroglycerin (Inpatient Use) 0.4 Mg Tab.Subl) 0.4 mg SUBLINGUAL Q5M PRN PRN Reason: CARDIAC/CHEST PAIN Ondansetron HCl (Ondansetron 4 Mg/2 Ml Vial) 4 mg IV Q8H PRN PRN PRN Reason: NAUSEA/VOMITING Prochlorperazine Edisylate (Prochlorperazine 10 Mg/2 Ml Vial) 5 mg IV Q4H PRN PRN PRN Reason: Breakthrough Nausea/Vomiting Sodium Chloride (0.9% Saline Lock 10 Ml Syringe) 10 - 40 ml IV UD PRN PRN Reason: SALINE FLUSH Last Admin: 01/06/20 03:26 Dose: 20 ml Documented by: Throat Lozenges (Benzocaine/Menthol 1 Lozenge) 1 lozenge MUCOUS MEM Q2H PRN PRN PRN Reason: SORE THROAT STROKE Vital Signs/Narrative: Vital Signs Pulse Resp Pulse Ox 01/07/20 10:58 77 01/07/20 09:23 92 25 H 94 01/07/20 08:00 115 H 01/07/20 07:32 93 27 H 94 Medical Necessity - Tobacco Use Smoking Status: Former smoker Tobacco Use: Cigarettes Assessment/Plan All Active Problems (Last Reviewed 06/25/18 @ 15:[address] Osmar Garcia MD) COVID-19 (Acute) Acute respiratory failure with hypoxia (Acute) Pneumonia (Acute) Severe sepsis (Acute) Chest pain (Acute) Old non-ST elevation myocardial infarction (NSTEMI) (Resolved) 1. Acute severe sepsis secondary acute hypoxic respiratory failure secondary to COVID-19 pneumonia/metabolic encephalopathy versus delirium -He was diagnosed with Covid almost 2 weeks ago and just completed his quarantine when he became more dyspneic and hypoxic. -Continue with BiPAP -Continue with Decadron, he is too far out for remdesivir convalescent plasma -He did have an elevated D-dimer despite a CTA being negative for PE, continue with therapeutic Lovenox -Troponin is slightly elevated likely secondary to demand ischemia he does have a history of coronary artery disease -Continue him on Seroquel 2. CKD 3 with renal insufficiency -Reading has returned to baseline -We will continue to monitor 3. CAD status post stent/HTN/HLD/indeterminant troponin -He is on aspirin and Plavix -Continue with his statin as well as his lisinopril and metoprolol -Upon is likely secondary to demand ischemia from his acute hypoxic respiratory failure. 4. GERD -Stable -Continue with PPI 5. Urinary retention -He is bladder scanned for over 1000 cc, he had to have a Courtney placed -We will monitor renal function DVT: Therapeutic Lovenox Inpatient E&M: [id number] [facility] Hosp L2
--- NOTE | 2020-01-07 11:37 | PCM.NTREPORT ---
Nutrition Therapy Report - History Current diet / nutrition support order:: cardiac-heart healthy; 120mL ensure enlive w/ meals, fortified foods - Anthropometric Measurements Height:: 5 ft 10 in Weight:: 79.5 kg Body Mass Index (BMI):: 25.1 - Relevant Labs Relevant Labs:: WBC 19.9 K/mm3 (4.4-11.0) H 01/07/20 04:05 RBC 4.37 M/mm3 (4.6-6.2) L 01/07/20 04:05 Hgb 12.9 g/dL (13.0-16.5) L 01/07/20 04:05 Hct 35.3 % (40-54) L 01/06/20 03:25 RDW Std Deviation 46.8 fl (35.1-43.9) H 01/07/20 04:05 Plt Count 487 K/mm3 (150-450) H 01/07/20 04:05 Immature Gran % (Auto) 2.000 % (0.0-0.9) H 01/07/20 04:05 Neut % (Auto) 88.9 % (47-70) H 01/07/20 04:05 Lymph % (Auto) 6.0 % (19-41) L 01/07/20 04:05 Absolute Neuts (auto) 17.7 X10^3/uL (2.0-7.7) H 01/07/20 04:05 Absolute Lymphs (auto) 0.72 X10^3/uL (0.83-4.51) L 01/06/20 03:25 D-Dimer Quant (PE/DVT) 3.89 FEU/ug/m (0.27-0.49) H* 01/02/20 19:40 Sodium 148 mmol/L (136-145) H 01/05/20 04:10 Potassium 3.3 mmol/L (3.5-5.1) L 01/06/20 03:25 Chloride 113 mmol/L (98-107) H 01/07/20 04:05 BUN 21 mg/dL (7-18) H 01/07/20 04:05 Creatinine 1.35 mg/dL (0.70-1.30) H 01/02/20 14:50 Est GFR (MDRD) Non-Af 55 mL/min (>60) L 01/02/20 14:50 BUN/Creatinine Ratio 25.0 RATIO (10-20) H 01/06/20 03:25 Glucose 114 mg/dL (74-106) H 01/06/20 03:25 Hemoglobin A1c 5.7 % (3.8-5.6) H 01/02/20 19:40 Lactic Acid 2.1 mmol/L (0.4-1.9) H* 01/02/20 14:50 Calcium 7.9 mg/dL (8.5-10.1) L 01/06/20 03:25 Magnesium 2.8 mg/dL (1.6-2.6) H 01/02/20 19:40 Ferritin 1750 ng/mL (26-388) H 01/02/20 19:40 AST 61 U/L (15-37) H 01/05/20 04:10 Alkaline Phosphatase 155 U/L (45-117) H 01/05/20 04:10 Lactate Dehydrogenase 705 U/L (87-241) H 01/02/20 19:40 Troponin I 0.520 ng/mL (<0.045) H 01/03/20 02:30 C-React Prot Ext Range 220.00 mg/L (0.0-3.0) H 01/02/20 19:40 Total Protein 6.3 g/dL (6.4-8.2) L 01/03/20 02:30 Albumin 2.2 g/dL (3.2-5.0) L 01/05/20 04:10 Globulin 4.5 g/dL (2.2-4.2) H 01/05/20 04:10 Albumin/Globulin Ratio 0.5 RATIO (0.9-2.4) L 01/05/20 04:10 Procalcitonin 0.26 ng/mL (0.00-0.09) H 01/02/20 19:40 - Assessment Food / Nutrition-Related History:: Discussed in ICU rounds. Currently on bipap this AM- overall poor PO intake d/t bipap needs. Wt decrease of 0.8kg noted since last review. Per rounds, pt struggling w/ bipap compliance and may require intubation. Medications changed to encourage compliance w/bipap. - Nutrition Diagnosis Problem / Etiology / Signs & Symptoms (PES):: Pt w/ severe, acute malnutrition r/t COVID-19, respiratory status as evidenced by estimated PO intake meeting less than 50% of pt's estimated PO needs for 5 days, 2.9kg/3.5% wt loss x 5 days. Evidence of Malnutrition Exists:: Yes Severe PCM:: Acute Illness - Nutrition Intervention Nutrition Prescription:: [id number] calories, 75-85 g protein per day - Food / Nutrient Delivery Interventions Summary of nutrition intervention:: Will liberalize diet to regular and continue to provide ONS and fortified foods w/ meals if pt able to tolerate breaks from bipap. Nutrition support ordered as / adjusted to:: regular diet; continue fortified foods and ensure enlive w/ meals when able to tolerate PO diet. Nutrition education provided?: No - MNT Monitoring Further MNT monitoring and evaluation required?: Yes MNT Follow-up in:: 3-5 days
--- NOTE | 2020-01-07 15:32 | PN.ID_ITS ---
Patient Problems: Active and Suspected Problems (Last Reviewed 06/25/18 @ 15:[address] Osmar Garcia MD) COVID-19 (Acute) Acute respiratory failure with hypoxia (Acute) Pneumonia (Acute) Severe sepsis (Acute) Subjective: Fever last night, feeling better than before. No sputum, no n/v/d/. - Physical Exam Vitals/I&O's: Vital Signs Temp Pulse Resp BP Pulse Ox 98.7 F 72 27 H 92/57 L 94 01/07/20 09:00 01/07/20 13:17 01/07/20 11:23 01/07/20 11:00 01/07/20 13:17 Oxygen Flow Rate (L/min) 60 Oxygen Delivery Method Bi-pap Weight: 79.5 kg Body Mass Index (BMI) 25.1 Intake and Output for Last 24 Hours 01/05/20 01/06/20 01/07/20 23:59 23:59 23:59 Intake Total 2426.5 / 2426.5 1140 / 1140 Output Total 4475 / 4475 750 / 785 510 / 510 Balance -2048.5 / -2048.5 390 / 355 -510 / -510 General: Alert, Cooperative, No apparent distress Lungs: Diminished Cardiovascular: Regular rate, Regular Rhythm Abdomen: Soft, Non Tender, Non-Distended Skin: No rashes Microbiology Past 72 Hours 01/05/20 13:30 Urine Catheter - Courtney Urine Culture - Preliminary Culture exhibits no growth. 01/02/20 20:20 Urine, Clean Catch Urine Culture - Final Culture exhibits no growth. 01/02/20 14:50 Blood Culture (Wb) - Right Forearm Blood Culture - Preliminary No growth in 48 hours. 01/02/20 14:45 Blood Culture (Wb) - Anticubital Left Blood Culture - Preliminary No growth in 48 hours. Laboratory Results 01/07/20 04:05: WBC 19.9 H, RBC 4.37 L, Hgb 12.9 L, Hct 40.3, MCV 92.2, MCH 29.5, MCHC 32.0, RDW Std Deviation 46.8 H, RDW Coeff of James 13.7, Plt Count 487 H, MPV 10.2, Immature Gran % (Auto) 2.000 H, Neut % (Auto) 88.9 H, Lymph % (Auto) 6.0 L, [place] % (Auto) 2.6, Eos % (Auto) 0.3, Baso % (Auto) 0.2, Absolute Neuts (auto) 17.7 H, Absolute Lymphs (auto) 1.20, Nucleated RBC % 0 01/07/20 04:05: Sodium 145, Potassium 3.9, Chloride 113 H, Carbon Dioxide 24.0, Anion Gap 8, BUN 21 H, Creatinine 1.09, Estim Creat Clear Calc 61.39, Est GFR (MDRD) Af Amer 85, Est GFR (MDRD) Non-Af 70, BUN/Creatinine Ratio 19.3, Glucose 101, Calcium 8.7 Current Medications Acetaminophen (Acetaminophen 325 Mg Tablet) 650 mg PO Q6H PRN PRN PRN Reason: Pain Score 1-10/Temp > 100.7 F Last Admin: 01/07/20 05:47 Dose: 650 mg Documented by: Al Hydroxide/Mg Hydroxide (Mag Hydrox/Al Hydrox/Simeth 30 Ml Udc) 30 ml PO Q6H PRN PRN PRN Reason: Gastric Burning Albuterol Sulfate (Albuterol 2.5 Mg/3 Ml Vial.Neb.) 2.5 mg INHALATION Q2H PRN PRN PRN Reason: Dyspnea, wheezing Aspirin (Aspirin E.C. 81 Mg Tablet) 81 mg PO DAILY [facility] Last Admin: 01/07/20 10:58 Dose: 81 mg Documented by: Atorvastatin Calcium (Atorvastatin Calcium 40 Mg Tablet) 40 mg PO QHS [facility] Last Admin: 01/06/20 19:42 Dose: 40 mg Documented by: Clopidogrel Bisulfate (Clopidogrel Bisulfate 75 Mg Tablet) 75 mg PO DAILY [facility] Last Admin: 01/07/20 10:58 Dose: 75 mg Documented by: Dexamethasone Sodium Phosphate (Dexamethasone 4 Mg/Ml Vial) 6 mg IV Q24 [facility] Stop: 01/11/20 10:01 Last Admin: 01/07/20 10:58 Dose: 6 mg Documented by: Enoxaparin Sodium (Enoxaparin 80 Mg/0.8 Ml Syringe) 80 mg SC Q12@0600,1800 [facility] Last Admin: 01/07/20 05:44 Dose: 80 mg Documented by: Famotidine (Famotidine 20 Mg Tablet) 20 mg PO DAILY [facility] Last Admin: 01/07/20 10:58 Dose: 20 mg Documented by: Guaifenesin (Guaifenesin 10 Ml Udc (200mg/10ml)) 10 ml PO Q4H PRN PRN PRN Reason: COUGH Sodium Chloride () 250 mls @ 15 mls/hr IV .[id number] PRN PRN Reason: Saline Flush Sodium Chloride () 250 mls @ 15 mls/hr IV .[id number] PRN PRN Reason: Additional IVPB Infusion Last Infusion: 01/05/20 21:00 Dose: Infused Documented by: Dexmedetomidine HCl 400 mcg/ (Sodium Chloride) 100 mls @ 9.938 mls/hr CONT INF .Q10H4M [facility]; Protocol Last Admin: 01/07/20 10:57 Dose: 0.5 mcg/kg/hr, 9.9 mls/hr Documented by: Lisinopril (Lisinopril 40 Mg Tablet) 40 mg PO DAILY [facility] Last Admin: 01/07/20 10:59 Dose: 40 mg Documented by: Metoprolol Tartrate (Metoprolol Tartrate 25 Mg Tablet) 12.5 mg PO BID [facility] Last Admin: 01/07/20 10:58 Dose: 12.5 mg Documented by: Nitroglycerin (Nitroglycerin (Inpatient Use) 0.4 Mg Tab.Subl) 0.4 mg SUBLINGUAL Q5M PRN PRN Reason: CARDIAC/CHEST PAIN Ondansetron HCl (Ondansetron 4 Mg/2 Ml Vial) 4 mg IV Q8H PRN PRN PRN Reason: NAUSEA/VOMITING Prochlorperazine Edisylate (Prochlorperazine 10 Mg/2 Ml Vial) 5 mg IV Q4H PRN PRN PRN Reason: Breakthrough Nausea/Vomiting Sodium Chloride (0.9% Saline Lock 10 Ml Syringe) 10 - 40 ml IV UD PRN PRN Reason: SALINE FLUSH Last Admin: 01/06/20 03:26 Dose: 20 ml Documented by: Throat Lozenges (Benzocaine/Menthol 1 Lozenge) 1 lozenge MUCOUS MEM Q2H PRN PRN PRN Reason: SORE THROAT Medical Necessity - Tobacco Use Smoking Status: Former smoker Tobacco Use: Cigarettes Route of nutrition/ use of supplements: [] Nutritional Intake: [] IV Site: [] Courtney Catheter: [] - Assessment/Plan Antibiotics: [] Assessment/Plan: [] Active and Suspected Problems (Last Reviewed 06/25/18 @ 15:[address] Osmar Garcia MD) COVID-19 (Acute) Acute respiratory failure with hypoxia (Acute) Pneumonia (Acute) Severe sepsis (Acute) Improving symptoms. CT showed no PE. On dex. Cxs neg, on fever, and PCT was 0.26. Elevated d-dimer, on therapeutic lovenox. Still high O2 reqs. Will follow
[2020-01-08] VITALS (38 sets, daily range): BP systolic 91–132; BP diastolic 63–93; PULSE 41–85; RESP 12–28; TEMP 35.6–36.3; O2SAT 90–99
[2020-01-08 05:21] LABS: Absolute Lymphocyte Count 0.68 X10^3/uL (0.83-4.51); Absolute Neutrophil Count 12.5 X10^3/uL (2.0-7.7); Basophil# 0.02 X10^3/uL; Basophil% 0.1 % (0-1); Eosinophil# 0.09 X10^3/uL; Eosinophils% 0.6 % (0-5); Hematocrit 37.5 % (40-54); Hemoglobin 11.8 g/dL (13.0-16.5); Lymphocyte # 0.68 X10^3/ul (4.0); Lymphocyte % 4.9 % (19-41); Mean Corp Hgb Conc 31.5 g/dL (32-36); Mean Corpuscular Hgb 29.3 pg (27.0-32.0); Mean Corpuscular Volume 93.1 fL (80-94); Mean Platelet Vol. 10.6 fl (6.2-12.0); Monocyte# 0.46 X10^3/uL; Monocyte% 3.3 % (0-10); NRBC Flagged by Analyzer 0 % (0-5); Neutrophil # 12.49 X10^3/uL (2.7-7.7); Neutrophil % 89.4 % (47-70); Platelet Count 432 K/mm3 (150-450); RBC Distribution Width CV 13.6 % (11.6-14.6); RBC Distribution Width SD 46.8 fl (35.1-43.9); Red Blood Count 4.03 M/mm3 (4.6-6.2)
[2020-01-08 05:31] LABS: Anion Gap 5 (5-15); BUN 33 mg/dL (7-18); Calcium,Total 8.5 mg/dL (8.5-10.1); Chloride 117 mmol/L (98-107); Creatinine, Serum 0.85 mg/dL (0.70-1.30); EST Glomerular Filtration Rate 94 mL/min (>60); Est Glom Filt Rate - Afr Amer 114 mL/min (>60); Estimated Creatinine Clearance 78.73 ml/min; Glucose 135 mg/dL (74-106); Potassium 4.4 mmol/L (3.5-5.1); Sodium Level 148 mmol/L (136-145)
[2020-01-08] MEDS: TITRATION PARAMETER CHANGE 1 EACH IV (06:55)
[2020-01-08] MEDS: Enoxaparin 80 MG/0.8 ML Syringe SC ×2 (07:09→19:04)
--- NOTE | 2020-01-08 07:46 | PN_ITS ---
Subjective: Patient has done better over the last 24 hours. Patient was initiated on a Precedex drip and has been tolerating the BiPAP better. Patient has had a fever overnight and only intermittently removed his mask. Patient has had some bradycardia, but no associated hypotension has been noted. Patient is still requiring increased FiO2 to maintain saturations. General: Cooperative, No apparent distress, Lethargic, - - Follow some commands. HEENT: Atraumatic, PERRLA, EOMI, Normocephalic, - - No breakdown noted at the interface site Oral: No Gingival or Mucosal Lesions/ Ulcerations, Dry Mucosa Neck: Supple, No JVD, No Nodes, Trachea Midline Lungs: No rhonchi, No wheeze, No rales, Diminished, - - Symmetric expansion. No dullness to percussion Cardiovascular: Normal S1, Normal S2, No murmurs, Bradycardic, No rub noted, No Gallop Abdomen: Bowel Sounds Present, Soft, Non Tender, Non-Distended Extremities: No clubbing, No cyanosis, No edema, Capillary Refill Less than 3 Seconds Skin: - - No change from previous Musculoskeletal: No Tenderness to Palpation of Joints or Extremities Lymphatic: No Cervical, Supraclavicular, or Inguinal Adenopathy Neurological: Cranial nerves II-XII grossly intact, Neuro grossly intact Psych/Mental Status: Flat Affect, Impulsive Vital Signs Temp Pulse Resp BP Pulse Ox 36.3 C L 50 L 19 H 111/69 91 01/08/20 04:00 01/08/20 07:19 01/08/20 07:19 01/08/20 06:00 01/08/20 07:19 Oxygen Flow Rate (L/min) 60 Oxygen Delivery Method Bi-pap Weight: 78 kg Body Mass Index (BMI) 25.1 Intake and Output for Last 24 Hours 01/06/20 01/07/20 01/08/20 23:59 23:59 23:59 Intake Total 1140 / 1140 100.00 / 100.00 100 / 100 Output Total 750 / 785 810 / 1060 1050 / 1050 Balance 390 / 355 -710.00 / -960.00 -950 / -950 Labs (Last 48 Hours) 01/07/20 01/07/20 01/08/20 04:05 04:05 05:00 WBC 19.9 H 14.0 H RBC 4.37 L 4.03 L Hgb 12.9 L 11.8 L Hct 40.3 37.5 L MCV 92.2 93.1 MCH 29.5 29.3 MCHC 32.0 31.5 L RDW Std Deviation 46.8 H 46.8 H RDW Coeff of James 13.7 13.6 Plt Count 487 H 432 MPV 10.2 10.6 Immature Gran % (Auto) 2.000 H 1.700 H Neut % (Auto) 88.9 H 89.4 H Lymph % (Auto) 6.0 L 4.9 L [place] % (Auto) 2.6 3.3 Eos % (Auto) 0.3 0.6 Baso % (Auto) 0.2 0.1 Absolute Neuts (auto) 17.7 H 12.5 H Absolute Lymphs (auto) 1.20 0.68 L Nucleated RBC % 0 0 Sodium 145 Potassium 3.9 Chloride 113 H Carbon Dioxide 24.0 Anion Gap 8 BUN 21 H Creatinine 1.09 Estim Creat Clear Calc 61.39 Est GFR (MDRD) Af Amer 85 Est GFR (MDRD) Non-Af 70 BUN/Creatinine Ratio 19.3 Glucose 101 Calcium 8.7 01/08/20 05:00 WBC RBC Hgb Hct MCV MCH MCHC RDW Std Deviation RDW Coeff of James Plt Count MPV Immature Gran % (Auto) Neut % (Auto) Lymph % (Auto) [place] % (Auto) Eos % (Auto) Baso % (Auto) Absolute Neuts (auto) Absolute Lymphs (auto) Nucleated RBC % Sodium 148 H Potassium 4.4 Chloride 117 H Carbon Dioxide 26.0 Anion Gap 5 BUN 33 H Creatinine 0.85 Estim Creat Clear Calc 78.73 Est GFR (MDRD) Af Amer 114 Est GFR (MDRD) Non-Af 94 BUN/Creatinine Ratio 39.0 H Glucose 135 H Calcium 8.5 Microbiology 01/02/20 14:50 Blood Culture (Wb) - Right Forearm Blood Culture - Final No growth in 5 days. 01/02/20 14:45 Blood Culture (Wb) - Anticubital Left Blood Culture - Final No growth in 5 days. 01/05/20 13:30 Urine Catheter - Courtney Urine Culture - Preliminary Culture exhibits no growth. Medical Necessity - Tobacco Use Smoking Status: Former smoker Tobacco Use: Cigarettes Assessment/Plan All Active Problems (Last Reviewed 06/25/18 @ 15:[address] Osmar Garcia MD) COVID-19 (Acute) Acute respiratory failure with hypoxia (Acute) Pneumonia (Acute) Severe sepsis (Acute) Chest pain (Acute) Old non-ST elevation myocardial infarction (NSTEMI) (Resolved) RECOMMENDATIONS: 1. Continue BiPAP. Wean FiO2 as tolerated to maintain saturations at or above 90%. 2. Delirium protocol. Continue Precedex drip 3. Complete Decadron 6 mg daily x10 days, therapeutic Lovenox and empiric antimicrobials per ID. 4. Potassium repletion as indicated. 5. Continue to monitor for possible need for intubation 6. Possibly initiate D5W at low rate for hypernatremia IMPRESSIONS: 1. Acute hypoxemic respiratory failure Patient appears to be improving. Patient has tested positive for COVID- 19, but appears to be responding to therapy. Patient is currently on therapeutic anticoagulation, Decadron and supplemental oxygen. Patient currently on BiPAP therapy. Clinical suspicion for an element of decompensation secondary to poor respiratory mechanics associated with agitation. Patient appears to be doing well when he can keep his BiPAP in place. Will attempt using a Precedex drip. This appears to be working at this time. Hopefully we can decrease FiO2 to the point that we can switch to Airvo and allow p.o. intake 2. Acute kidney injury Stable. Likely prerenal in etiology. We will continue to monitor urine output. No current indication for renal replacement therapy. Electrolyte repletion as indicated. Patient is developing hypernatremia and hyperchloremia. May need to initiate D5W given decreased p.o. intake with problem #1 3. Indeterminate troponin/history of coronary artery disease status post PCI Suspect secondary to demand ischemia in the setting of #1. Continue current supportive measures along with outpatient medication regimen. Patient is on therapeutic anticoagulation secondary to #1. 4. Hypertension/hyperlipidemia/GERD/advanced age Complicates care, management, recovery and prognosis. Continue home medications as indicated. This may be secondary to Decadron complications. 5. Urinary retention Patient bladder scanned for over 1000 cc of urine. Courtney has been placed with improvement in abdominal exam. Will monitor renal function as this could lead to postobstructive uropathy. Urine studies are not suggestive of an acute infection. No fever has been noted with Desenex therapy thus far. Continue to monitor 6. Metabolic encephalopathy/delirium Multiple risk factors including severity of illness, steroids, ICU adm ission, hypoxia and hypokalemia. Continue delirium protocol. Continue Precedex therapy TIME: 36 minutes of critical care time, independent of procedures, was spent addressing the patient's acute hypoxemic respiratory failure, acute kidney injury, indeterminate troponin, review of all data and collaboration with the care team. (6 AM to 7 AM) [phone]: [id number] Critical care first hour
[2020-01-08] MEDS: dexAMETHasone 4 MG/ML Vial 6 MG IV (09:15)
--- NOTE | 2020-01-08 11:03 | PN_ITS ---
Patient Problems: Active and Suspected Problems (Last Reviewed 06/25/18 @ 15:[address] Osmar Garcia MD) COVID-19 (Acute) Acute respiratory failure with hypoxia (Acute) Pneumonia (Acute) Severe sepsis (Acute) Subjective: Had been placed on Precedex yesterday for his agitation, he seems to have improved with that. He is leaving his BiPAP mask on. Vitals/I&O's: Vital Signs Temp Pulse Resp BP Pulse Ox 96.0 F L 85 19 H 108/68 90 01/08/20 09:00 01/08/20 10:04 01/08/20 09:00 01/08/20 09:00 01/08/20 09:00 Oxygen Flow Rate (L/min) 60 Oxygen Delivery Method Bi-pap Weight: 171 lb 15.369 oz Body Mass Index (BMI) 25.1 Intake and Output for Last 24 Hours 01/06/20 01/07/20 01/08/20 23:59 23:59 23:59 Intake Total 1140 / 1140 100.00 / 100.00 127.79 / 127.79 Output Total 750 / 785 810 / 1060 1225 / 1225 Balance 390 / 355 -710.00 / -960.00 -1097.21 / -1097.21 General: Alert, disoriented, Cooperative, No apparent distress HEENT: Atraumatic, PERRLA, EOMI, Normocephalic Oral: Dry Mucosa Neck: Supple, No JVD Lungs: Normal air movement, No rhonchi, No wheeze, No rales, Diminished Cardiovascular: Regular rate, Regular Rhythm, Normal S1, Normal S2, No murmurs Abdomen: Soft, Non Tender, Non-Distended, No Hepato-splenomegaly Extremities: No edema, Capillary Refill Less than 3 Seconds Skin: No rashes, No breakdown Neurological: Neuro grossly intact, Sensory exam intact to light touch and pain Psych/Mental Status: Flat affect Microbiology Past 72 Hours 01/05/20 13:30 Urine Catheter - Courtney Urine Culture - Final Culture exhibits no growth. 01/02/20 14:50 Blood Culture (Wb) - Right Forearm Blood Culture - Final No growth in 5 days. 01/02/20 14:45 Blood Culture (Wb) - Anticubital Left Blood Culture - Final No growth in 5 days. 01/02/20 20:20 Urine, Clean Catch Urine Culture - Final Culture exhibits no growth. Laboratory Results 01/08/20 05:00: WBC 14.0 H, RBC 4.03 L, Hgb 11.8 L, Hct 37.5 L, MCV 93.1, MCH 29.3, MCHC 31.5 L, RDW Std Deviation 46.8 H, RDW Coeff of James 13.6, Plt Count 432, MPV 10.6, Immature Gran % (Auto) 1.700 H, Neut % (Auto) 89.4 H, Lymph % (Auto) 4.9 L, [place] % (Auto) 3.3, Eos % (Auto) 0.6, Baso % (Auto) 0.1, Absolute Neuts (auto) 12.5 H, Absolute Lymphs (auto) 0.68 L, Nucleated RBC % 0 01/08/20 05:00: Sodium 148 H, Potassium 4.4, Chloride 117 H, Carbon Dioxide 26. 0, Anion Gap 5, BUN 33 H, Creatinine 0.85, Estim Creat Clear Calc 78.73, Est GFR (MDRD) Af Amer 114, Est GFR (MDRD) Non-Af 94, BUN/Creatinine Ratio 39.0 H, Glucose 135 H, Calcium 8.5 Current Medications Acetaminophen (Acetaminophen 325 Mg Tablet) 650 mg PO Q6H PRN PRN PRN Reason: Pain Score 1-10/Temp > 100.7 F Last Admin: 01/07/20 05:47 Dose: 650 mg Documented by: Al Hydroxide/Mg Hydroxide (Mag Hydrox/Al Hydrox/Simeth 30 Ml Udc) 30 ml PO Q6H PRN PRN PRN Reason: Gastric Burning Albuterol Sulfate (Albuterol 2.5 Mg/3 Ml Vial.Neb.) 2.5 mg INHALATION Q2H PRN PRN PRN Reason: Dyspnea, wheezing Aspirin (Aspirin E.C. 81 Mg Tablet) 81 mg PO DAILY [facility] Last Admin: 01/07/20 10:58 Dose: 81 mg Documented by: Atorvastatin Calcium (Atorvastatin Calcium 40 Mg Tablet) 40 mg PO QHS [facility] Last Admin: 01/07/20 22:36 Dose: Not Given Documented by: Clopidogrel Bisulfate (Clopidogrel Bisulfate 75 Mg Tablet) 75 mg PO DAILY [facility] Last Admin: 01/07/20 10:58 Dose: 75 mg Documented by: Dexamethasone Sodium Phosphate (Dexamethasone 4 Mg/Ml Vial) 6 mg IV Q24 [facility] Stop: 01/11/20 10:01 Last Admin: 01/08/20 09:15 Dose: 6 mg Documented by: Enoxaparin Sodium (Enoxaparin 80 Mg/0.8 Ml Syringe) 80 mg SC Q12@0600,1800 [facility] Last Admin: 01/08/20 07:09 Dose: 80 mg Documented by: Famotidine (Famotidine 20 Mg Tablet) 20 mg PO DAILY [facility] Last Admin: 01/08/20 10:05 Dose: Not Given Documented by: Guaifenesin (Guaifenesin 10 Ml Udc (200mg/10ml)) 10 ml PO Q4H PRN PRN PRN Reason: COUGH Sodium Chloride () 250 mls @ 15 mls/hr IV .[id number] PRN PRN Reason: Saline Flush Sodium Chloride () 250 mls @ 15 mls/hr IV .[id number] PRN PRN Reason: Additional IVPB Infusion Last Infusion: 01/05/20 21:00 Dose: Infused Documented by: Dexmedetomidine HCl 400 mcg/ (Sodium Chloride) 100 mls @ 9.75 mls/hr CONT INF .[id number] [facility]; Protocol Last Titration: 01/08/20 09:00 Dose: 0.7 mcg/kg/hr, 13.7 mls/hr Documented by: Lisinopril (Lisinopril 40 Mg Tablet) 40 mg PO DAILY [facility] Last Admin: 01/08/20 10:06 Dose: Not Given Documented by: Nitroglycerin (Nitroglycerin (Inpatient Use) 0.4 Mg Tab.Subl) 0.4 mg SUBLINGUAL Q5M PRN PRN Reason: CARDIAC/CHEST PAIN Ondansetron HCl (Ondansetron 4 Mg/2 Ml Vial) 4 mg IV Q8H PRN PRN PRN Reason: NAUSEA/VOMITING Prochlorperazine Edisylate (Prochlorperazine 10 Mg/2 Ml Vial) 5 mg IV Q4H PRN PRN PRN Reason: Breakthrough Nausea/Vomiting Sodium Chloride (0.9% Saline Lock 10 Ml Syringe) 10 - 40 ml IV UD PRN PRN Reason: SALINE FLUSH Last Admin: 01/06/20 03:26 Dose: 20 ml Documented by: Throat Lozenges (Benzocaine/Menthol 1 Lozenge) 1 lozenge MUCOUS MEM Q2H PRN PRN PRN Reason: SORE THROAT STROKE Vital Signs/Narrative: Vital Signs Temp Pulse Resp BP Pulse Ox 01/08/20 10:04 85 01/08/20 09:00 96.0 F L 49 L 19 H 108/68 90 01/08/20 08:00 55 L 18 111/67 90 01/08/20 07:19 50 L 19 H 91 Medical Necessity - Tobacco Use Smoking Status: Former smoker Tobacco Use: Cigarettes Assessment/Plan All Active Problems (Last Reviewed 06/25/18 @ 15:[address] Osmar Garcia MD) COVID-19 (Acute) Acute respiratory failure with hypoxia (Acute) Pneumonia (Acute) Severe sepsis (Acute) Chest pain (Acute) Old non-ST elevation myocardial infarction (NSTEMI) (Resolved) 1. Acute severe sepsis secondary acute hypoxic respiratory failure secondary to COVID-19 pneumonia/metabolic encephalopathy versus delirium -He was diagnosed with Covid almost 2 weeks ago and just completed his quarantine when he became more dyspneic and hypoxic. -Continue with BiPAP -Continue with Decadron, he is too far out for remdesivir convalescent plasma -He did have an elevated D-dimer despite a CTA being negative for PE, continue with therapeutic Lovenox -Troponin is slightly elevated likely secondary to demand ischemia he does have a history of coronary artery disease -Continue him on Seroquel -Continue with his Precedex 2. CKD 3 with renal insufficiency -Reading has returned to baseline -We will continue to monitor 3. CAD status post stent/HTN/HLD/indeterminant troponin -He is on aspirin and Plavix -Continue with his statin as well as his lisinopril and metoprolol -Upon is likely secondary to demand ischemia from his acute hypoxic respiratory failure. 4. GERD -Stable -Continue with PPI 5. Urinary retention -He is bladder scanned for over 1000 cc, he had to have a Courtney placed -We will monitor renal function DVT: Therapeutic Lovenox Inpatient E&M: [id number] Subs Hosp L2
--- NOTE | 2020-01-08 11:14 | PCM.PN.ID ---
Patient Problems: Active and Suspected Problems (Last Reviewed 06/25/18 @ 15:[address] Osmar Garcia MD) COVID-19 (Acute) Acute respiratory failure with hypoxia (Acute) Pneumonia (Acute) Severe sepsis (Acute) Subjective: On bipap, no fever overnight, no events, says he's feeling a little better - Physical Exam Vitals/I&O's: Vital Signs Temp Pulse Resp BP Pulse Ox 96.0 F L 43 L 18 101/65 90 01/08/20 09:00 01/08/20 11:00 01/08/20 11:00 01/08/20 11:00 01/08/20 11:00 Oxygen Flow Rate (L/min) 60 Oxygen Delivery Method Bi-pap Weight: 78 kg Body Mass Index (BMI) 25.1 Intake and Output for Last 24 Hours 01/06/20 01/07/20 01/08/20 23:59 23:59 23:59 Intake Total 1140 / 1140 100.00 / 100.00 127.79 / 127.79 Output Total 750 / 785 810 / 1060 1225 / 1225 Balance 390 / 355 -710.00 / -960.00 -1097.21 / -1097.21 General: Alert, Cooperative, Lethargic Lungs: Diminished Cardiovascular: Regular rate, Regular Rhythm Abdomen: Soft, Non Tender, Non-Distended Skin: No rashes Microbiology Past 72 Hours 01/05/20 13:30 Urine Catheter - Courtney Urine Culture - Final Culture exhibits no growth. 01/02/20 14:50 Blood Culture (Wb) - Right Forearm Blood Culture - Final No growth in 5 days. 01/02/20 14:45 Blood Culture (Wb) - Anticubital Left Blood Culture - Final No growth in 5 days. 01/02/20 20:20 Urine, Clean Catch Urine Culture - Final Culture exhibits no growth. Laboratory Results 01/08/20 05:00: WBC 14.0 H, RBC 4.03 L, Hgb 11.8 L, Hct 37.5 L, MCV 93.1, MCH 29.3, MCHC 31.5 L, RDW Std Deviation 46.8 H, RDW Coeff of James 13.6, Plt Count 432, MPV 10.6, Immature Gran % (Auto) 1.700 H, Neut % (Auto) 89.4 H, Lymph % (Auto) 4.9 L, [place] % (Auto) 3.3, Eos % (Auto) 0.6, Baso % (Auto) 0.1, Absolute Neuts (auto) 12.5 H, Absolute Lymphs (auto) 0.68 L, Nucleated RBC % 0 01/08/20 05:00: Sodium 148 H, Potassium 4.4, Chloride 117 H, Carbon Dioxide 26.0, Anion Gap 5, BUN 33 H, Creatinine 0.85, Estim Creat Clear Calc 78.73, Est GFR (MDRD) Af Amer 114, Est GFR (MDRD) Non-Af 94, BUN/Creatinine Ratio 39.0 H, Glucose 135 H, Calcium 8.5 Current Medications Acetaminophen (Acetaminophen 325 Mg Tablet) 650 mg PO Q6H PRN PRN PRN Reason: Pain Score 1-10/Temp > 100.7 F Last Admin: 01/07/20 05:47 Dose: 650 mg Documented by: Al Hydroxide/Mg Hydroxide (Mag Hydrox/Al Hydrox/Simeth 30 Ml Udc) 30 ml PO Q6H PRN PRN PRN Reason: Gastric Burning Albuterol Sulfate (Albuterol 2.5 Mg/3 Ml Vial.Neb.) 2.5 mg INHALATION Q2H PRN PRN PRN Reason: Dyspnea, wheezing Aspirin (Aspirin E.C. 81 Mg Tablet) 81 mg PO DAILY [facility] Last Admin: 01/07/20 10:58 Dose: 81 mg Documented by: Atorvastatin Calcium (Atorvastatin Calcium 40 Mg Tablet) 40 mg PO QHS [facility] Last Admin: 01/07/20 22:36 Dose: Not Given Documented by: Clopidogrel Bisulfate (Clopidogrel Bisulfate 75 Mg Tablet) 75 mg PO DAILY [facility] Last Admin: 01/07/20 10:58 Dose: 75 mg Documented by: Dexamethasone Sodium Phosphate (Dexamethasone 4 Mg/Ml Vial) 6 mg IV Q24 [facility] Stop: 01/11/20 10:01 Last Admin: 01/08/20 09:15 Dose: 6 mg Documented by: Enoxaparin Sodium (Enoxaparin 80 Mg/0.8 Ml Syringe) 80 mg SC Q12@0600,1800 [facility] Last Admin: 01/08/20 07:09 Dose: 80 mg Documented by: Famotidine (Famotidine 20 Mg Tablet) 20 mg PO DAILY [facility] Last Admin: 01/08/20 10:05 Dose: Not Given Documented by: Guaifenesin (Guaifenesin 10 Ml Udc (200mg/10ml)) 10 ml PO Q4H PRN PRN PRN Reason: COUGH Sodium Chloride () 250 mls @ 15 mls/hr IV .[id number] PRN PRN Reason: Saline Flush Sodium Chloride () 250 mls @ 15 mls/hr IV .[id number] PRN PRN Reason: Additional IVPB Infusion Last Infusion: 01/05/20 21:00 Dose: Infused Documented by: Dexmedetomidine HCl 400 mcg/ (Sodium Chloride) 100 mls @ 9.75 mls/hr CONT INF .[id number] [facility]; Protocol Last Titration: 01/08/20 09:00 Dose: 0.7 mcg/kg/hr, 13.7 mls/hr Documented by: Lisinopril (Lisinopril 40 Mg Tablet) 40 mg PO DAILY [facility] Last Admin: 01/08/20 10:06 Dose: Not Given Documented by: Nitroglycerin (Nitroglycerin (Inpatient Use) 0.4 Mg Tab.Subl) 0.4 mg SUBLINGUAL Q5M PRN PRN Reason: CARDIAC/CHEST PAIN Nutritional Formula (Lactose Free) (Ensure Clear 120 Ml Liquid) 240 ml PO TIDCM [facility] Ondansetron HCl (Ondansetron 4 Mg/2 Ml Vial) 4 mg IV Q8H PRN PRN PRN Reason: NAUSEA/VOMITING Prochlorperazine Edisylate (Prochlorperazine 10 Mg/2 Ml Vial) 5 mg IV Q4H PRN PRN PRN Reason: Breakthrough Nausea/Vomiting Sodium Chloride (0.9% Saline Lock 10 Ml Syringe) 10 - 40 ml IV UD PRN PRN Reason: SALINE FLUSH Last Admin: 01/06/20 03:26 Dose: 20 ml Documented by: Throat Lozenges (Benzocaine/Menthol 1 Lozenge) 1 lozenge MUCOUS MEM Q2H PRN PRN PRN Reason: SORE THROAT Medical Necessity - Tobacco Use Smoking Status: Former smoker Tobacco Use: Cigarettes Route of nutrition/ use of supplements: [] Nutritional Intake: [] IV Site: [] Courtney Catheter: [] - Assessment/Plan Antibiotics: [] Assessment/Plan: [] Active and Suspected Problems (Last Reviewed 06/25/18 @ 15:[address] Osmar Garcia MD) COVID-19 (Acute) Acute respiratory failure with hypoxia (Acute) Pneumonia (Acute) Severe sepsis (Acute) Improving symptoms. CT showed no PE. On dex. Cxs neg, no fever, and PCT was 0.26. Elevated d-dimer, on therapeutic lovenox. Still high O2 reqs. Wbc better. Will follow
[2020-01-08] MEDS: Ensure Clear 120 ML Liquid 240 ML PO ×2 (13:55→19:04)
--- NOTE | 2020-01-08 20:43 | CPS ---
Patient's BiPAP settings increased to 20/14 and 100% for desaturation into the 70-80%. RN aware of change. Patient tolerating change good.
[2020-01-09] VITALS (30 sets, daily range): BP systolic 71–129; BP diastolic 39–90; PULSE 49–74; RESP 12–33; TEMP 36.2–36.4; O2SAT 79–100
[2020-01-09] MEDS: Enoxaparin 80 MG/0.8 ML Syringe SC (04:58)
[2020-01-09] MEDS: TITRATION PARAMETER CHANGE 1 EACH IV (05:35)
[2020-01-09 06:08] LABS: Absolute Lymphocyte Count 0.67 X10^3/uL (0.83-4.51); Absolute Neutrophil Count 14.7 X10^3/uL (2.0-7.7); Basophil# 0.01 X10^3/uL; Basophil% 0.1 % (0-1); Eosinophil# 0.01 X10^3/uL; Eosinophils% 0.1 % (0-5); Hemoglobin 12.9 g/dL (13.0-16.5); Lymphocyte # 0.67 X10^3/ul (4.0); Lymphocyte % 4.1 % (19-41); Mean Corp Hgb Conc 31.5 g/dL (32-36); Mean Corpuscular Hgb 28.9 pg (27.0-32.0); Mean Corpuscular Volume 91.9 fL (80-94); Mean Platelet Vol. 10.9 fl (6.2-12.0); Monocyte# 0.76 X10^3/uL; Monocyte% 4.7 % (0-10); NRBC Flagged by Analyzer 0 % (0-5); Neutrophil # 14.66 X10^3/uL (2.7-7.7); Neutrophil % 89.8 % (47-70); Platelet Count 554 K/mm3 (150-450); RBC Distribution Width CV 13.6 % (11.6-14.6); RBC Distribution Width SD 46.5 fl (35.1-43.9); Red Blood Count 4.46 M/mm3 (4.6-6.2); White Blood Count 16.3 K/mm3 (4.4-11.0)
[2020-01-09] MEDS: Furosemide 20 MG/2 ML VIAL IV (06:26)
[2020-01-09] MEDS: 0.9% Saline Lock 10 ML Syringe IV (06:26)
[2020-01-09 06:34] LABS: Anion Gap 8 (5-15); BUN 47 mg/dL (7-18); Calcium,Total 8.9 mg/dL (8.5-10.1); Chloride 121 mmol/L (98-107); EST Glomerular Filtration Rate 78 mL/min (>60); Est Glom Filt Rate - Afr Amer 94 mL/min (>60); Estimated Creatinine Clearance 66.92 ml/min; Glucose 128 mg/dL (74-106); Potassium 4.4 mmol/L (3.5-5.1); Sodium Level 151 mmol/L (136-145)
--- NOTE | 2020-01-09 08:15 | RAD_ITS ---
STUDY: X-RAY CHEST REASON FOR EXAM: Male, 74 years old. HYPOXIA TECHNIQUE: Single AP portable view of the chest. COMPARISON: Comparison is made with prior study dated 01/02/2020. FINDINGS: EKG electrodes are seen. Since prior study, there has been improved aeration of both lungs although residual changes persist. There is no demonstrated pleural abnormality. Normal size heart. Normal mediastinum and stacey. Normal visualized pulmonary arteries. There is atherosclerotic calcification of the aortic arch with tortuosity. Normal visualized thoracic spine. Normal visualized ribs, clavicles, and shoulders. There is no demonstrated abnormality of the visualized soft tissue structures of the upper abdomen. RAD/Chest 1 View (Portable) IMPRESSION: Improved aeration of both lungs as compared to prior study. Electronically Signed: Dixon Lopez, at 12:21 EDT , Service support ,
[2020-01-09] MEDS: dexAMETHasone 4 MG/ML Vial 6 MG IV (08:24)
--- NOTE | 2020-01-09 10:28 | PN_ITS ---
Patient Problems: Active and Suspected Problems (Last Reviewed 06/25/18 @ 15:[address] Osmar Garcia MD) COVID-19 (Acute) Acute respiratory failure with hypoxia (Acute) Pneumonia (Acute) Severe sepsis (Acute) Subjective: Confused, gets restless at times gets agitated enough to take off his BiPAP Vitals/I&O's: Vital Signs Temp Pulse Resp BP Pulse Ox 97.2 F L 50 L 21 H 103/90 H 95 01/09/20 04:00 01/09/20 07:00 01/09/20 07:00 01/09/20 07:00 01/09/20 07:00 Oxygen Flow Rate (L/min) 60 Oxygen Delivery Method Bi-pap Weight: 176 lb 2.389 oz Body Mass Index (BMI) 25.1 Intake and Output for Last 24 Hours 01/07/20 01/08/20 01/09/20 23:59 23:59 23:59 Intake Total 100.00 / 100.00 270.35 / 273.28 106.16 / 106.16 Output Total 810 / 1060 1850 / 1975 385 / 385 Balance -710.00 / -960.00 -1579.65 / -1701.72 -278.84 / -278.84 General: Alert, disoriented, uncooperative at times HEENT: Atraumatic, PERRLA, EOMI, Normocephalic Oral: Dry Mucosa Neck: Supple, No JVD Lungs: Normal air movement, No rhonchi, No wheeze, No rales, Diminished Cardiovascular: Regular rate, Regular Rhythm, Normal S1, Normal S2, No murmurs Abdomen: Soft, Non Tender, Non-Distended, No Hepato-splenomegaly Extremities: No edema, Capillary Refill Less than 3 Seconds Skin: No rashes, No breakdown Neurological: Neuro grossly intact, Sensory exam intact to light touch and pain Psych/Mental Status: Restless Microbiology Past 72 Hours 01/05/20 13:30 Urine Catheter - Courtney Urine Culture - Final Culture exhibits no growth. 01/02/20 14:50 Blood Culture (Wb) - Right Forearm Blood Culture - Final No growth in 5 days. 01/02/20 14:45 Blood Culture (Wb) - Anticubital Left Blood Culture - Final No growth in 5 days. Laboratory Results 01/09/20 05:40: Sodium 151 H, Potassium 4.4, Chloride 121 H, Carbon Dioxide 22.0, Anion Gap 8, BUN 47 H, Creatinine 1.00, Estim Creat Clear Calc 66.92, Est GFR (MDRD) Af Amer 94, Est GFR (MDRD) Non-Af 78, BUN/Creatinine Ratio 47.0 H, Glucose 128 H, Calcium 8.9 01/09/20 05:55: WBC 16.3 H, RBC 4.46 L, Hgb 12.9 L, Hct 41.0, MCV 91.9, MCH 28.9, MCHC 31.5 L, RDW Std Deviation 46.5 H, RDW Coeff of James 13.6, Plt Count 554 H, MPV 10.9, Immature Gran % (Auto) 1.200 H, Neut % (Auto) 89.8 H, Lymph % (Auto) 4.1 L, [place] % (Auto) 4.7, Eos % (Auto) 0.1, Baso % (Auto) 0.1, Absolute Neuts (auto) 14.7 H, Absolute Lymphs (auto) 0.67 L, Nucleated RBC % 0 Current Medications Acetaminophen (Acetaminophen 325 Mg Tablet) 650 mg PO Q6H PRN PRN PRN Reason: Pain Score 1-10/Temp > 100.7 F Last Admin: 01/07/20 05:47 Dose: 650 mg Documented by: Al Hydroxide/Mg Hydroxide (Mag Hydrox/Al Hydrox/Simeth 30 Ml Udc) 30 ml PO Q6H PRN PRN PRN Reason: Gastric Burning Albuterol Sulfate (Albuterol 2.5 Mg/3 Ml Vial.Neb.) 2.5 mg INHALATION Q2H PRN PRN PRN Reason: Dyspnea, wheezing Aspirin (Aspirin E.C. 81 Mg Tablet) 81 mg PO DAILY [facility] Last Admin: 01/08/20 19:11 Dose: Not Given Documented by: Atorvastatin Calcium (Atorvastatin Calcium 40 Mg Tablet) 40 mg PO QHS [facility] Last Admin: 01/08/20 20:56 Dose: Not Given Documented by: Clopidogrel Bisulfate (Clopidogrel Bisulfate 75 Mg Tablet) 75 mg PO DAILY [facility] Last Admin: 01/08/20 19:11 Dose: Not Given Documented by: Dexamethasone Sodium Phosphate (Dexamethasone 4 Mg/Ml Vial) 6 mg IV Q24 [facility] Stop: 01/11/20 10:01 Last Admin: 10/30/20 08:24 Dose: 6 mg Documented by: Enoxaparin Sodium (Enoxaparin 80 Mg/0.8 Ml Syringe) 80 mg SC Q12@0600,1800 [facility] Last Admin: 01/09/20 04:58 Dose: 80 mg Documented by: Famotidine (Famotidine 20 Mg Tablet) 20 mg PO DAILY [facility] Last Admin: 01/08/20 10:05 Dose: Not Given Documented by: Guaifenesin (Guaifenesin 10 Ml Udc (200mg/10ml)) 10 ml PO Q4H PRN PRN PRN Reason: COUGH Sodium Chloride () 250 mls @ 15 mls/hr IV .[id number] PRN PRN Reason: Saline Flush Sodium Chloride () 250 mls @ 15 mls/hr IV .[id number] PRN PRN Reason: Additional IVPB Infusion Last Infusion: 01/05/20 21:00 Dose: Infused Documented by: Dexmedetomidine HCl 400 mcg/ (Sodium Chloride) 100 mls @ 9.988 mls/hr CONT INF .Q10H1M [facility]; Protocol Last Admin: 01/09/20 08:00 Dose: 0.7 mcg/kg/hr, 14 mls/hr Documented by: Dextrose () 1,000 mls @ 75 mls/hr IV .[id number] [facility] Lisinopril (Lisinopril 40 Mg Tablet) 40 mg PO DAILY [facility] Last Admin: 01/08/20 10:06 Dose: Not Given Documented by: Nitroglycerin (Nitroglycerin (Inpatient Use) 0.4 Mg Tab.Subl) 0.4 mg SUBLINGUAL Q5M PRN PRN Reason: CARDIAC/CHEST PAIN Nutritional Formula (Lactose Free) (Ensure Clear 120 Ml Liquid) 240 ml PO TIDCM [facility] Last Admin: 01/09/20 08:26 Dose: Not Given Documented by: Ondansetron HCl (Ondansetron 4 Mg/2 Ml Vial) 4 mg IV Q8H PRN PRN PRN Reason: NAUSEA/VOMITING Prochlorperazine Edisylate (Prochlorperazine 10 Mg/2 Ml Vial) 5 mg IV Q4H PRN PRN PRN Reason: Breakthrough Nausea/Vomiting Sodium Chloride (0.9% Saline Lock 10 Ml Syringe) 10 - 40 ml IV UD PRN PRN Reason: SALINE FLUSH Last Admin: 01/09/20 06:26 Dose: 20 ml Documented by: Throat Lozenges (Benzocaine/Menthol 1 Lozenge) 1 lozenge MUCOUS MEM Q2H PRN PRN PRN Reason: SORE THROAT STROKE Vital Signs/Narrative: Vital Signs Pulse Resp BP Pulse Ox 01/09/20 07:00 50 L 21 H 103/90 H 95 Medical Necessity - Tobacco Use Smoking Status: Former smoker Tobacco Use: Cigarettes Assessment/Plan All Active Problems (Last Reviewed 06/25/18 @ 15:[address] Osmar Garcia MD) COVID-19 (Acute) Acute respiratory failure with hypoxia (Acute) Pneumonia (Acute) Severe sepsis (Acute) Chest pain (Acute) Old non-ST elevation myocardial infarction (NSTEMI) (Resolved) 1. Acute severe sepsis secondary acute hypoxic respiratory failure secondary to COVID-19 pneumonia/metabolic encephalopathy versus delirium -He was diagnosed with Covid almost 2 weeks ago and just completed his quarantine when he became more dyspneic and hypoxic. 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 CKD 3 with renal insufficiency -Reading has returned to baseline -We will continue to monitor 3. CAD status post stent/HTN/HLD/indeterminant troponin -He is on aspirin and Plavix -Continue with his statin as well as his lisinopril and metoprolol -Troponin is likely secondary to demand ischemia from his acute hypoxic respiratory failure. 4. GERD -Stable -Continue with PPI 5. Urinary retention -He is bladder scanned for over 1000 cc, he had to have a Courtney placed -We will monitor renal function DVT: Therapeutic Lovenox Inpatient E&M: [id number] Subs Hosp L2
--- NOTE | 2020-01-09 12:10 | PN_ITS ---
Subjective: Patient was relatively unchanged overnight. Patient continues to be on the Precedex drip with intermittent confusion and pulling off his mask. Patient typically takes an extended period of time to recover after removal and is intermittently requiring 100% FiO2 to maintain saturations. Patient has not been able to take much by mouth given his BiPAP dependence. Patient was telling me that he would not like to be placed on a ventilator. Family has been contacted, but is not called back with a decision. General: Alert, Cooperative, - - Significant distress off of BiPAP with rapid desaturation. Appears to becoming more tired of breathing HEENT: Atraumatic, PERRLA, EOMI, Normocephalic, - - Slight scleral injection without icterus Oral: No Gingival or Mucosal Lesions/ Ulcerations, Dry Mucosa Neck: Supple, No JVD, No Nodes, Trachea Midline Lungs: No rhonchi, No wheeze, No rales, Diminished, - - Symmetric expansion. No dullness to percussion. Cardiovascular: Normal S1, Normal S2, No murmurs, No rub noted, No Gallop, Tachycardic Abdomen: Bowel Sounds Present, Soft, Non Tender, Non-Distended Extremities: No clubbing, No cyanosis, No edema Skin: - - No change from previous Musculoskeletal: No Tenderness to Palpation of Joints or Extremities Lymphatic: No Cervical, Supraclavicular, or Inguinal Adenopathy Neurological: Cranial nerves II-XII grossly intact, Neuro grossly intact, Motor Exam 5/5 strength throughout Psych/Mental Status: Anxious, Restless Vital Signs Temp Pulse Resp BP Pulse Ox 36.2 C L 50 L 21 H 103/90 H 95 01/09/20 04:00 01/09/20 07:00 01/09/20 07:00 01/09/20 07:00 01/09/20 07:00 Oxygen Flow Rate (L/min) 60 Oxygen Delivery Method Bi-pap Weight: 79.9 kg Body Mass Index (BMI) 25.1 Intake and Output for Last 24 Hours 01/07/20 01/08/20 01/09/20 23:59 23:59 23:59 Intake Total 100.00 / 100.00 270.35 / 273.28 134.16 / 134.16 Output Total 810 / 1060 1850 / 1975 385 / 385 Balance -710.00 / -960.00 -1579.65 / -1701.72 -250.84 / -250.84 Labs (Last 48 Hours) 01/08/20 01/08/20 01/09/20 05:00 05:00 05:40 WBC 14.0 H RBC 4.03 L Hgb 11.8 L Hct 37.5 L MCV 93.1 MCH 29.3 MCHC 31.5 L RDW Std Deviation 46.8 H RDW Coeff of James 13.6 Plt Count 432 MPV 10.6 Immature Gran % (Auto) 1.700 H Neut % (Auto) 89.4 H Lymph % (Auto) 4.9 L [place] % (Auto) 3.3 Eos % (Auto) 0.6 Baso % (Auto) 0.1 Absolute Neuts (auto) 12.5 H Absolute Lymphs (auto) 0.68 L Nucleated RBC % 0 Sodium 148 H 151 H Potassium 4.4 4.4 Chloride 117 H 121 H Carbon Dioxide 26.0 22.0 Anion Gap 5 8 BUN 33 H 47 H Creatinine 0.85 1.00 Estim Creat Clear Calc 78.73 66.92 Est GFR (MDRD) Af Amer 114 94 Est GFR (MDRD) Non-Af 94 78 BUN/Creatinine Ratio 39.0 H 47.0 H Glucose 135 H 128 H Calcium 8.5 8.9 01/09/20 05:55 WBC 16.3 H RBC 4.46 L Hgb 12.9 L Hct 41.0 MCV 91.9 MCH 28.9 MCHC 31.5 L RDW Std Deviation 46.5 H RDW Coeff of James 13.6 Plt Count 554 H MPV 10.9 Immature Gran % (Auto) 1.200 H Neut % (Auto) 89.8 H Lymph % (Auto) 4.1 L [place] % (Auto) 4.7 Eos % (Auto) 0.1 Baso % (Auto) 0.1 Absolute Neuts (auto) 14.7 H Absolute Lymphs (auto) 0.67 L Nucleated RBC % 0 Sodium Potassium Chloride Carbon Dioxide Anion Gap BUN Creatinine Estim Creat Clear Calc Est GFR (MDRD) Af Amer Est GFR (MDRD) Non-Af BUN/Creatinine Ratio Glucose Calcium Microbiology 01/05/20 13:30 Urine Catheter - Courtney Urine Culture - Final Culture exhibits no growth. 01/02/20 14:50 Blood Culture (Wb) - Right Forearm Blood Culture - Final No growth in 5 days. 01/02/20 14:45 Blood Culture (Wb) - Anticubital Left Blood Culture - Final No growth in 5 days. Medical Necessity - Tobacco Use Smoking Status: Former smoker Tobacco Use: Cigarettes Assessment/Plan All Active Problems (Last Reviewed 06/25/18 @ 15:[address] Osmar Garcia MD) COVID-19 (Acute) Acute respiratory failure with hypoxia (Acute) Pneumonia (Acute) Severe sepsis (Acute) Chest pain (Acute) Old non-ST elevation myocardial infarction (NSTEMI) (Resolved) RECOMMENDATIONS: 1. Continue BiPAP. Wean FiO2 as tolerated to maintain saturations at or above 90%. 2. Delirium protocol. Continue Precedex drip 3. Complete Decadron 6 mg daily x10 days, therapeutic Lovenox and empiric antimicrobials per ID. 4. Discussed with patient and family about goals of therapy. Possible intubation today 5. Continue to monitor for possible need for intubation 6. Initiate D5W at low rate for hypernatremia IMPRESSIONS: 1. Acute hypoxemic respiratory failure Patient appears to be stalling. Patient has tested positive for COVID-19, but appears to be responding to therapy. Patient is currently on therapeutic anticoagulation, Decadron and supplemental oxygen. Patient currently on BiPAP therapy. Clinical suspicion for an element of decompensation secondary to poor respiratory mechanics associated with agitation. Patient continues to remove his mask with slow recovery. However, there is some concern for lack of nutrition/hydration and respiratory muscle fatigue that this will be able to continue. Having conversation with patient and his family about whether intubation is appropriate. If they are agreeable, anticipate intubation in the next 24 hours. Awaiting answer. 2. Acute kidney injury Stable. Likely prerenal in etiology. We will continue to monitor urine output. No current indication for renal replacement therapy. Electrolyte repletion as indicated. Patient is developing hypernatremia and hyperchloremia. May need to initiate D5W given decreased p.o. intake with problem #1 3. Indeterminate troponin/history of coronary artery disease status post PCI Suspect secondary to demand ischemia in the setting of #1. Continue current supportive measures along with outpatient medication regimen. Patient is on therapeutic anticoagulation secondary to #1. 4. Hypertension/hyperlipidemia/GERD/advanced age Complicates care, management, recovery and prognosis. Continue home medications as indicated. This may be secondary to Decadron complications. Patient developing hypernatremia and hyperchloremia, likely secondary to decreased free water intake. D5W will be started at low-dose. This may complicate respiratory status. However, none anion gap hyperchloremic metabolic acidosis will also increased metabolic demand and may complicate respiratory status in and of itself. 5. Urinary retention Patient bladder scanned for over 1000 cc of urine. Courtney has been placed with improvement in abdominal exam. Will monitor renal function as this could lead to postobstructive uropathy. Urine studies are not suggestive of an acute infection. No fever has been noted with Desenex therapy thus far. Continue to monitor 6. Metabolic encephalopathy/delirium Multiple risk factors including severity of illness, steroids, ICU admission, hypoxia and hypokalemia. Continue delirium protocol. Continue Pr ecedex therapy TIME: 34 minutes of critical care time, independent of procedures, was spent addressing the patient's acute hypoxemic respiratory failure, acute kidney injury, indeterminate troponin, review of all data and collaboration with the care team. (8 AM to 9 AM) 9xxxx: [id number] Critical care first hour
--- NOTE | 2020-01-09 15:24 | PCM.PN.ID ---
Patient Problems: Active and Suspected Problems (Last Reviewed 06/25/18 @ 15:[address] Osmar Garcia MD) COVID-19 (Acute) Acute respiratory failure with hypoxia (Acute) Pneumonia (Acute) Severe sepsis (Acute) Subjective: Not feeling well, no fever - Physical Exam Vitals/I&O's: Vital Signs Temp Pulse Resp BP Pulse Ox 97.6 F L 62 33 H 91/55 L 96 01/09/20 12:00 01/09/20 14:50 01/09/20 14:50 01/09/20 13:00 01/09/20 14:50 Oxygen Flow Rate (L/min) 60 Oxygen Delivery Method Bi-pap Weight: 79.9 kg Body Mass Index (BMI) 25.1 Intake and Output for Last 24 Hours 01/07/20 01/08/20 01/09/20 23:59 23:59 23:59 Intake Total 100.00 / 100.00 270.35 / 273.28 274.66 / 274.66 Output Total 810 / 1060 1850 / 1975 535 / 535 Balance -710.00 / -960.00 -1579.65 / -1701.72 -260.34 / -260.34 General: Cooperative, Lethargic Lungs: Diminished Cardiovascular: Regular rate, Regular Rhythm Abdomen: Soft, Non Tender, Non-Distended Skin: No rashes Microbiology Past 72 Hours 01/05/20 13:30 Urine Catheter - Courtney Urine Culture - Final Culture exhibits no growth. 01/02/20 14:50 Blood Culture (Wb) - Right Forearm Blood Culture - Final No growth in 5 days. 01/02/20 14:45 Blood Culture (Wb) - Anticubital Left Blood Culture - Final No growth in 5 days. Laboratory Results 01/09/20 05:40: Sodium 151 H, Potassium 4.4, Chloride 121 H, Carbon Dioxide 22.0, Anion Gap 8, BUN 47 H, Creatinine 1.00, Estim Creat Clear Calc 66.92, Est GFR (MDRD) Af Amer 94, Est GFR (MDRD) Non-Af 78, BUN/Creatinine Ratio 47.0 H, Glucose 128 H, Calcium 8.9 01/09/20 05:55: WBC 16.3 H, RBC 4.46 L, Hgb 12.9 L, Hct 41.0, MCV 91.9, MCH 28.9, MCHC 31.5 L, RDW Std Deviation 46.5 H, RDW Coeff of James 13.6, Plt Count 554 H, MPV 10.9, Immature Gran % (Auto) 1.200 H, Neut % (Auto) 89.8 H, Lymph % (Auto) 4.1 L, [place] % (Auto) 4.7, Eos % (Auto) 0.1, Baso % (Auto) 0.1, Absolute Neuts (auto) 14.7 H, Absolute Lymphs (auto) 0.67 L, Nucleated RBC % 0 Current Medications Acetaminophen (Acetaminophen 325 Mg Tablet) 650 mg PO Q6H PRN PRN PRN Reason: Pain Score 1-10/Temp > 100.7 F Last Admin: 01/07/20 05:47 Dose: 650 mg Documented by: Al Hydroxide/Mg Hydroxide (Mag Hydrox/Al Hydrox/Simeth 30 Ml Udc) 30 ml PO Q6H PRN PRN PRN Reason: Gastric Burning Albuterol Sulfate (Albuterol 2.5 Mg/3 Ml Vial.Neb.) 2.5 mg INHALATION Q2H PRN PRN PRN Reason: Dyspnea, wheezing Aspirin (Aspirin E.C. 81 Mg Tablet) 81 mg PO DAILY [facility] Last Admin: 01/09/20 10:54 Dose: Not Given Documented by: Atorvastatin Calcium (Atorvastatin Calcium 40 Mg Tablet) 40 mg PO QHS [facility] Last Admin: 01/08/20 20:56 Dose: Not Given Documented by: Clopidogrel Bisulfate (Clopidogrel Bisulfate 75 Mg Tablet) 75 mg PO DAILY [facility] Last Admin: 01/09/20 10:55 Dose: Not Given Documented by: Dexamethasone Sodium Phosphate (Dexamethasone 4 Mg/Ml Vial) 6 mg IV Q24 [facility] Stop: 01/11/20 10:01 Last Admin: 01/09/20 08:24 Dose: 6 mg Documented by: Enoxaparin Sodium (Enoxaparin 80 Mg/0.8 Ml Syringe) 80 mg SC Q12@0600,1800 [facility] Last Admin: 01/09/20 04:58 Dose: 80 mg Documented by: Famotidine (Famotidine 20 Mg Tablet) 20 mg PO DAILY [facility] Last Admin: 01/09/20 10:55 Dose: Not Given Documented by: Guaifenesin (Guaifenesin 10 Ml Udc (200mg/10ml)) 10 ml PO Q4H PRN PRN PRN Reason: COUGH Sodium Chloride () 250 mls @ 15 mls/hr IV .[id number] PRN PRN Reason: Saline Flush Sodium Chloride () 250 mls @ 15 mls/hr IV .[id number] PRN PRN Reason: Additional IVPB Infusion Last Infusion: 01/05/20 21:00 Dose: Infused Documented by: Dexmedetomidine HCl 400 mcg/ (Sodium Chloride) 100 mls @ 9.988 mls/hr CONT INF .Q10H1M [facility]; Protocol Last Titration: 01/09/20 12:00 Dose: 0.7 mcg/kg/hr, 14 mls/hr Documented by: Dextrose () 1,000 mls @ 75 mls/hr IV .[id number] [facility] Last Infusion: 01/09/20 12:00 Dose: 75 mls/hr Documented by: Lisinopril (Lisinopril 40 Mg Tablet) 40 mg PO DAILY [facility] Last Admin: 01/09/20 10:55 Dose: Not Given Documented by: Nitroglycerin (Nitroglycerin (Inpatient Use) 0.4 Mg Tab.Subl) 0.4 mg SUBLINGUAL Q5M PRN PRN Reason: CARDIAC/CHEST PAIN Nutritional Formula (Lactose Free) (Ensure Clear 120 Ml Liquid) 240 ml PO TIDCM [facility] Last Admin: 01/09/20 10:55 Dose: Not Given Documented by: Ondansetron HCl (Ondansetron 4 Mg/2 Ml Vial) 4 mg IV Q8H PRN PRN PRN Reason: NAUSEA/VOMITING Prochlorperazine Edisylate (Prochlorperazine 10 Mg/2 Ml Vial) 5 mg IV Q4H PRN PRN PRN Reason: Breakthrough Nausea/Vomiting Senna/Docusate Sodium (Senna/Docusate Sodium 1 Tablet) 2 tablet PO BID PRN PRN PRN Reason: CONSTIPATION Sodium Chloride (0.9% Saline Lock 10 Ml Syringe) 10 - 40 ml IV UD PRN PRN Reason: SALINE FLUSH Last Admin: 01/09/20 06:26 Dose: 20 ml Documented by: Throat Lozenges (Benzocaine/Menthol 1 Lozenge) 1 lozenge MUCOUS MEM Q2H PRN PRN PRN Reason: SORE THROAT Medical Necessity - Tobacco Use Smoking Status: Former smoker Tobacco Use: Cigarettes Route of nutrition/ use of supplements: [] Nutritional Intake: [] IV Site: [] Courtney Catheter: [] - Assessment/Plan Antibiotics: [] Assessment/Plan: [] Active and Suspected Problems (Last Reviewed 06/25/18 @ 15:[address] Osmar Garcia MD) COVID-19 (Acute) Acute respiratory failure with hypoxia (Acute) Pneumonia (Acute) Severe sepsis (Acute) Improving symptoms. CT showed no PE. On dex. Cxs neg, no fever, and PCT was 0.26. Elevated d-dimer, on therapeutic lovenox. Still high O2 reqs. Wbc better. Will follow
--- NOTE | 2020-01-09 16:57 | CASEMGMT ---
Social Work MELISSA spoke with [facility] who states pt family spoke with hospice today and were requesting services. Referral faxed. MELISSA spoke with TAHIRA Miranda who has been in contact with pt family regarding choices of care and informed of phone call with hospice. Pt family to come in to see pt today and make decision on direction of care. CRISTIANE Edward
[2020-01-09] MEDS: Acetaminophen 325 MG Tablet 650 MG PO (18:48)
[2020-01-10] VITALS (16 sets, daily range): BP systolic 82–129; BP diastolic 45–78; PULSE 47–102; RESP 12–24; O2SAT 88–97
[2020-01-10] MEDS: Morphine 4 MG/ML Syringe IV ×2 (07:16→09:55)
[2020-01-10] MEDS: Enoxaparin 80 MG/0.8 ML Syringe SC (07:17)
--- NOTE | 2020-01-10 08:02 | PN_ITS ---
Subjective: Patient did okay overnight. Patient continues to require BiPAP [id number] to maintain appropriate saturations. Patient was reporting dyspnea this morning. Patient had a family meeting yesterday and is reportedly pending to go hospice today. General: Alert, Cooperative, - - Moderate respiratory distress. HEENT: Atraumatic, PERRLA, EOMI, Normocephalic, - - No scleral icterus or injection noted Oral: Moist Mucosa, No Gingival or Mucosal Lesions/ Ulcerations Neck: Supple, No JVD, No Nodes, Trachea Midline Lungs: No rhonchi, No wheeze, No rales, Diminished, - - Symmetric expansion. No dullness to percussion. Cardiovascular: Regular rate, Regular Rhythm, Normal S1, Normal S2, No murmurs, No rub noted, No Gallop Abdomen: Bowel Sounds Present, Soft, Non Tender, Non-Distended Extremities: No clubbing, No cyanosis, Edema - Trace Skin: No rashes, No breakdown Musculoskeletal: No Tenderness to Palpation of Joints or Extremities Lymphatic: No Cervical, Supraclavicular, or Inguinal Adenopathy Neurological: Cranial nerves II-XII grossly intact, Neuro grossly intact, Motor Exam 5/5 strength throughout Psych/Mental Status: Anxious, Restless Vital Signs Temp Pulse Resp BP Pulse Ox 36.4 C L 62 17 129/78 H 96 01/09/20 16:00 01/10/20 07:00 01/10/20 07:00 01/10/20 07:00 01/10/20 07:00 Oxygen Flow Rate (L/min) 15 Oxygen Delivery Method Bi-pap Weight: 77.3 kg Body Mass Index (BMI) 25.1 Intake and Output for Last 24 Hours 01/08/20 01/09/20 01/10/20 23:59 23:59 23:59 Intake Total 270.35 / 273.28 1056.68 / 1060.68 579.48 / 579.48 Output Total 1849 / 1975 1210 / 1210 250 / 250 Balance -1579.65 / -1701.72 -153.32 / -149.32 329.48 / 329.48 Labs (Last 48 Hours) 01/09/20 01/09/20 05:40 05:55 WBC 16.3 H RBC 4.46 L Hgb 12.9 L Hct 41.0 MCV 91.9 MCH 28.9 MCHC 31.5 L RDW Std Deviation 46.5 H RDW Coeff of James 13.6 Plt Count 554 H MPV 10.9 Immature Gran % (Auto) 1.200 H Neut % (Auto) 89.8 H Lymph % (Auto) 4.1 L [place] % (Auto) 4.7 Eos % (Auto) 0.1 Baso % (Auto) 0.1 Absolute Neuts (auto) 14.7 H Absolute Lymphs (auto) 0.67 L Nucleated RBC % 0 Sodium 151 H Potassium 4.4 Chloride 121 H Carbon Dioxide 22.0 Anion Gap 8 BUN 47 H Creatinine 1.00 Estim Creat Clear Calc 66.92 Est GFR (MDRD) Af Amer 94 Est GFR (MDRD) Non-Af 78 BUN/Creatinine Ratio 47.0 H Glucose 128 H Calcium 8.9 Microbiology 01/05/20 13:30 Urine Catheter - Courtney Urine Culture - Final Culture exhibits no growth. 01/02/20 14:50 Blood Culture (Wb) - Right Forearm Blood Culture - Final No growth in 5 days. 01/02/20 14:45 Blood Culture (Wb) - Anticubital Left Blood Culture - Final No growth in 5 days. Clinical Impression(s) from Imaging Studies Chest X-Ray 01/09/20 08:15 IMPRESSION: Improved aeration of both lungs as compared to prior study. Electronically Signed: Dixon Lopez, at 12:21 EDT , Service support , Clinical Impression(s) from Imaging Studies Chest X-Ray 01/09/20 08:15 IMPRESSION: Improved aeration of both lungs as compared to prior study. Electronically Signed: Dixon Lopez, at 12:21 EDT , Service support , Medical Necessity - Tobacco Use Smoking Status: Former smoker Tobacco Use: Cigarettes Assessment/Plan All Active Problems (Last Reviewed 06/25/18 @ 15:[address] Osmar Garcia MD) COVID-19 (Acute) Acute respiratory failure with hypoxia (Acute) Pneumonia (Acute) Severe sepsis (Acute) Chest pain (Acute) Old non-ST elevation myocardial infarction (NSTEMI) (Resolved) RECOMMENDATIONS: 1. Continue BiPAP. Wean FiO2 as tolerated to maintain saturations at or above 90%. 2. Delirium protocol. Anticipate discontinuation of Precedex on transfer to hospice 3. Complete Decadron 6 mg daily x10 days, therapeutic Lovenox and empiric antimicrobials per ID. 4. Discussed with patient and family about goals of therapy. Possible intubation today 5. Continue to monitor for possible need for intubation 6. Initiate morphine as needed for dyspnea IMPRESSIONS: 1. Acute hypoxemic respiratory failure Patient appears to be stalling. Patient has tested positive for COVID-19, but appears to be responding to therapy. Patient is currently on therapeutic anticoagulation, Decadron and supplemental oxygen. Patient currently on BiPAP therapy. Patient reportedly is requesting hospice services later today. Douglas russell appears to be significantly distressed and desaturates quickly without BiPAP. Anticipate transfer to the hospice center on BiPAP. Patient can be discontinued on Precedex just before leaving as this has a half-life of 30 minutes and should provide symptom relief on transfer. Morphine will be added for additional air hunger. 2. Acute kidney injury Stable. Likely prerenal in etiology. We will continue to monitor urine output. No current indication for renal replacement therapy. Electrolyte repletion as indicated. Okay to discontinue IV fluids from my perspective 3. Indeterminate troponin/history of coronary artery disease status post PCI Suspect secondary to demand ischemia in the setting of #1. Continue current supportive measures along with outpatient medication regimen. Patient is on therapeutic anticoagulation secondary to #1. 4. Hypertension/hyperlipidemia/GERD/advanced age Complicates care, management, recovery and prognosis. Continue home medications as indicated. This may be secondary to Decadron complications. Patient developing hypernatremia and hyperchloremia, likely secondary to decreased free water intake. This may complicate respiratory status. However, none anion gap hyperchloremic metabolic acidosis will also increased metabolic demand and may complicate respiratory status in and of itself. 5. Urinary retention Patient bladder scanned for over 1000 cc of urine. Courtney has been placed with improvement in abdominal exam. Will monitor renal function as this could lead to postobstructive uropathy. Urine studies are not suggestive of an acute infection. Continue to monitor 6. Metabolic encephalopathy/delirium Multiple risk factors including severity of illness, steroids, ICU admission, hypoxia and hypokalemia. Continue delirium protocol. Continue Precedex therapy until patient is ready for transport. Inpatient E&M: 41228 Subs Hosp L2
--- NOTE | 2020-01-10 16:21 | DS.PCM_ITS ---
Discharge Date and Diagnosis - Problem List Patient Problems: Active and Suspected Problems (Last Reviewed 06/25/18 @ 15:[address] Osmar Garcia MD) COVID-19 (Acute) Acute respiratory failure with hypoxia (Acute) Pneumonia (Acute) Severe sepsis (Acute) Date of Admission: 01/02/20 Date of Discharge: 01/10/20 - Primary Discharge Diagnosis Acute Problems: Active Problems (Last Reviewed 06/25/18 @ 15:[address] Osmar Garcia MD) COVID-19 (Acute) Acute respiratory failure with hypoxia (Acute) Pneumonia (Acute) Severe sepsis (Acute) - Secondary Discharge Diagnosis Chronic Problems: Chronic Problems (Last Reviewed 06/25/18 @ 15:[address] Osmar Garcia MD) History of coronary artery stent placement (Chronic 10/27/08) PCI-BMS-Mid RCA w/ 3.0 x 28 mm Liberte and BMS-Prox RCA w/ 3.5 x 20 mm Liberte 10/27/2008 Hyperlipidemia (Chronic) Atherosclerotic heart disease of [place] coronary artery without angina pectoris (Chronic) Hypertension (Chronic) Hospital Course and Treatment Imaging Results: Clinical Impression(s) from Imaging Studies Chest X-Ray 01/02/20 15:40 IMPRESSION: Increasing hazy bilateral pulmonary opacities. Appearance is nonspecific but could represent multifocal pneumonia. Electronically Signed: Michael Riggs MD at 16:51 EDT , Service support , Chest CTA 01/03/20 00:20 IMPRESSION: 1. No CTA demonstrated pulmonary embolism or arterial dissection. 2. Extensive bilateral airspace disease throughout both lungs consistent with multifocal pneumonia. 3. Right-sided hilar lymphadenopathy and mediastinal lymphadenopathy.. Electronically Signed: Ladan Posada MD at 1:52 EDT , Service support , Chest X-Ray 01/09/20 08:15 IMPRESSION: Improved aeration of both lungs as compared to prior study. Electronically Signed: Dixon Lopez at 12:21 EDT , Service support , Consults: ID ICU Operations: None Procedures: None Summary of Care Provided: Per HPI: The patient is a 74 y/o M w/ PMHx: HTN, HLD, CAD s/p BMS mid RCA and proximal RCA, GERD who presents to the [facility] ED on 01/02/20 with history of COVID + status 11 days prior, just off quarantine the day prior to current presentation with history of illness spectrum inclusive of fevers, chills, mild frontal throbbing headaches, congestion, sore throat, body aches, loose stools but no associated abdominal cramping, nausea without emesis with cough and dyspnea more pronounced over the last several days, worsening with outside evaluation noting oxygenation approximately 50% initially with improvement mid 80s % on a nonrebreather prompting EMS transition to the hospital for evaluation. Patient notes that his has not had any symptoms and lives with him. Patient notes that he felt as if he had been improving but worsened over the last 2 days. Patient notes he had fevers up to 104 at home. Work-up in the ED included T 98.5, heart rate 93, BP 113/61, respiratory rate 25, initially 92% on a nonrebreather with decreased to 87 with placement of BiPAP with improvement to 97%, CBC p with WC 15, hemoglobin 13.2, left shift, unremarkable coags, CMP with potassium 3.0, chloride 109, BUN/creatinine 25/1.35, glucose 138, lactic acid 2.1, AST/ALT 69/48, alk phos 120, repeat COVID testing as well as respiratory viral panel upon evaluation of patient, CXR with ? RUL and LLL infiltrates. Blood culture x2 requested per ED physician. Chest X-ray pending per ED. Hospital Course: 1. Acute severe sepsis secondary acute hypoxic respiratory failure secondary to COVID-19 pneumonia/metabolic encephalopathy versus delirium -He was diagnosed with Covid almost 2 weeks ago and just completed his quarantine when he became more dyspneic and hypoxic. -Continue with BiPAP settings had to be increased last night -Continue with Decadron, he is too far out for remdesivir convalescent plasma -He did have an elevated D-dimer despite a CTA being negative for PE, continue with therapeutic Lovenox -Troponin is slightly elevated likely secondary to demand ischemia he does have a history of coronary artery disease -Continue him on Seroquel -During his course the need did arise that he would be better suited with intubation however given his slow improvement, there was a family meeting and they decided that going hospice would be a better course of action. He was transitioned to [facility] without intubation and then this morning was transitio goldie to [facility] and transferred to hospice. He did have the opportunity to going to his brother's room prior to going to the hospice facility. He was transferred on BiPAP. 2. CKD 3 with renal insufficiency -Creatinine has returned to baseline -We will continue to monitor 3. CAD status post stent/HTN/HLD/indeterminant troponin -He is on aspirin and Plavix -Continue with his statin as well as his lisinopril and metoprolol -Troponin is likely secondary to demand ischemia from his acute hypoxic respiratory failure. 4. GERD -Stable -Continue with PPI 5. Urinary retention -He is bladder scanned for over 1000 cc, he had to have a Courtney placed -We will monitor renal function Patient Problems: Active and Suspected Problems (Last Reviewed 06/25/18 @ 15:[address] Osmar Garcia MD) COVID-19 (Acute) Acute respiratory failure with hypoxia (Acute) Pneumonia (Acute) Severe sepsis (Acute) - Physical Exam Vitals/I&O's: Vital Signs Temp Pulse Resp BP Pulse Ox 97.6 F L 69 18 93/56 L 95 01/09/20 16:00 01/10/20 11:04 01/10/20 11:04 01/10/20 11:00 01/10/20 11:04 Oxygen Flow Rate (L/min) 65 Oxygen Delivery Method Bi-pap Weight: 170 lb 6.677 oz Body Mass Index (BMI) 25.1 Intake and Output for Last 24 Hours 01/08/20 01/09/20 01/10/20 23:59 23:59 23:59 Intake Total 270.35 / 273.28 1056.68 / 1060.68 749.48 / 749.48 Output Total 18490 / 0 350 / 350 Balance -1579.65 / -1701.72 -153.32 / -149.32 399.48 / 399.48 General: Alert, disoriented, uncooperative at times HEENT: Atraumatic, PERRLA, EOMI, Normocephalic Oral: Dry Mucosa Neck: Supple, No JVD Lungs: Normal air movement, No rhonchi, No wheeze, No rales, Diminished Cardiovascular: Regular rate, Regular Rhythm, Normal S1, Normal S2, No murmurs Abdomen: Soft, Non Tender, Non-Distended, No Hepato-splenomegaly Extremities: No edema, Capillary Refill Less than 3 Seconds Skin: No rashes, No breakdown Neurological: Neuro grossly intact, Sensory exam intact to light touch and pain Psych/Mental Status: Restless Microbiology Past 72 Hours 01/05/20 13:30 Urine Catheter - Courtney Urine Culture - Final Culture exhibits no growth. 01/02/20 14:50 Blood Culture (Wb) - Right Forearm Blood Culture - Final No growth in 5 days. 01/02/20 14:45 Blood Culture (Wb) - Anticubital Left Blood Culture - Final No growth in 5 days. Home Medications: Medications to take at Discharge nitroglycerin 0.4 mg sublingual tablet 0.4 mg SUBLINGUAL Q5-15M PRN 04/02/17 Famotidine 20 mg PO DAILY 12/29/19 Aspirin E.C. [Ecotrin] 81 mg PO DAILY@0800 01/02/20 Atorvastatin Calcium 40 mg PO DAILY 01/02/20 Clopidogrel Bisulfate [Clopidogrel] 75 mg PO DAILY 01/02/20 Lisinopril 40 mg PO DAILY 01/02/20 Metoprolol Tartrate [Lopressor (beta eugenia)] 12.5 mg PO BID 01/02/20 Primary Care Physician: Natalie Alexandra MD [Primary Care Provider] - Disposition: Hospice Medical Facility Minutes spent on discharge:: 35 Patient Condition:: Poor Medical Necessity - Tobacco Use Smoking Status: Former smoker Tobacco Use: Cigarettes Meaningful Use Info Meaningful Use Diagnoses (Choose all that apply): None applicable Inpatient E&M: 42757 Disch Hosp
== END 2020-01-10 12:45 | disposition hospice, inpatient (51) | DRG 871 ==
LOC: ED 16:00 → ICU 18:02
PROVIDERS: Internal Medicine Critical Care Medicine; Admitting Provider Family Medicine; Emergency Provider Emergency Medicine; PCP Family Medicine; Visit Provider Family Medicine
DX: A41.89 Other specified sepsis (principal); U07.1 COVID-19; J96.01 Acute respiratory failure with hypoxia; J12.89 Other viral pneumonia; G93.41 Metabolic encephalopathy; N17.9 Acute kidney failure, unspecified; E87.0 Hyperosmolality and hypernatremia; E87.2 Acidosis; R65.20 Severe sepsis without septic shock; I25.10 Atherosclerotic heart disease of native coronary artery without angina pectoris; Z95.5 Presence of coronary angioplasty implant and graft; Z79.899 Other long term (current) drug therapy; Z87.891 Personal history of nicotine dependence; E87.6 Hypokalemia; R73.9 Hyperglycemia, unspecified; I12.9 Hypertensive chronic kidney disease with stage 1 through stage 4 chronic kidney disease, or unspecified chronic kidney disease; N18.30 Chronic kidney disease, stage 3 unspecified; E78.5 Hyperlipidemia, unspecified; K21.9 Gastro-esophageal reflux disease without esophagitis; R33.9 Retention of urine, unspecified; R41.0 Disorientation, unspecified; T38.0X5A Adverse effect of glucocorticoids and synthetic analogues, initial encounter; E87.8 Other disorders of electrolyte and fluid balance, not elsewhere classified; Z66 Do not resuscitate
CPT/HCPCS: 71045; 71275; 80048; 80053; 81001; 82728; 83036; 83605; 83615; 83735; 83880; 84100; 84145; 84484; 85025; 85379; 85610; 85730; 86140; 87040; 87086; 87449; 87633; 87635; 87804; 93005; 94002; 94003; 94660; 99251; 99285; J7030; J7040; J7050; Q9967; A4216; G0463; J0696; J1940; U0002